=== PATIENT | male | born 1950 | race Caucasian/White ===

== ENCOUNTER 2024-04-15 18:46 | Inpatient (IN) ==
--- NOTE | 2024-04-15 18:59 | Emergency Department Note ---
Impression & Plan Cellulitis of leg, right, Atrial fibrillation with rapid ventricular response, Hypomagnesemia, Elevated troponin I level ED Provider Note NAME: OSWALDO JARAMILLO AGE: 73 SEX: M : 1950 ARRIVES VIA: Ambulance INFORMANT: Patient, EMS ED PROVIDER(S): Ulisses Arizmendi DO CHIEF COMPLAINT: Leg pain HPI: The patient is a 73-year-old male who presented to the emergency department from the intermediate for an evaluation of leg pain and swelling. The patient's been having ongoing symptoms over the course the last few days. He states it became worse today. He states he is not currently on any antibiotics. He denies having any fever. He denies having any chest pain or difficulty breathing. The patient denies having any recent trauma. They did notice that he has a lot of swelling in his right inguinal region. The patient does not have a history of DVT. The patient denies having any cough or chills. ROS: See above HPI for pertinent positives & negatives. A total of 10 systems reviewed and were otherwise negative. PAST MEDICAL HISTORY: See Below PAST SURGICAL HISTORY: See Below FAMILY HISTORY: See Below SOCIAL HISTORY: See Below HOME MEDICATIONS: See Below ALLERGIES: See Below VITALS: See Below PHYSICAL EXAMINATION: GENERAL: Patient is awake alert in no acute distress patient is resting comfortably and showing no signs of anxiety EYES: The conjunctivae are clear. The pupils are round and reactive. EARS, NOSE, MOUTH AND THROAT: The nose is without any evidence of any deformity. NECK: The neck is nontender and supple. RESPIRATORY: Normal respiratory effort is noted there is no evidence of wheezing rhonchi or rales CARDIOVASCULAR: Regular rate and rhythm noted there no murmurs rubs or gallops normal S1 normal S2. GASTROINTESTINAL: The abdomen is soft. Abdomen is nontender. MUSCULOSKELETAL/EXTREMITIES: There is no evidence of gross deformity full range of motion is noted in the hips and shoulders. SKIN: There is significant erythema and induration noted on the entire right leg. There is swelling in the right inguinal region. Pulses are symmetric in both feet and both groins. NEUROLOGIC: Patient is awake alert and oriented x3 MEDICAL DECISION MAKING: The patient is a 73-year-old male who presented to the emergency department for an evaluation of right leg redness and swelling. History and physical exam appear to be consistent with cellulitis. The patient was febrile. He was also tachycardic and hypotensive at times. He was in rapid atrial fibrillation. He was treated with IV fluids IV antibiotics and IV magnesium replacement. I discussed the patient's laboratory and radiographic studies with him. I discussed his condition with the on-call [facility]. They have agreed to evaluate the patient in the emergency department for further management and disposition. The patient was treated with sepsis bundle order set as well as IV fluids. Triage Nursing notes reviewed. Prior medical records reviewed Vital Signs: reviewed and remarkable for tachycardia and hypotension. Differential diagnosis: Cellulitis, abscess, MRSA infection, DVT, necrotizing fasciitis, dermatitis, drug eruption, allergic reaction, as well as other pathologies. ER treatment provided: See below Diagnostics interpreted by me: ECG: EKG was obtained in the emergency department. My interpretation is atrial fibrillation with runs of atrial flutter at 137 bpm. There was no PVCs noted. Nonspecific ST segment abnormalities noted. No previous tracing was available. Cardiac Monitoring: An order was placed for continuous cardiac monitoring. The monitor shows a rate of 100 bpm with atrial fibrillation. Laboratory studies: As stated above and show below. Imaging studies: See below. Radiographic imaging was reviewed by myself Consultation(s): I discussed this case with Dr. Cedeño who is on-call for the [facility] group. ED COURSE: Procedures: none Critical Care: I have personally spent greater than 55 minutes of critical care time in the direct management of this patient. This includes bedside care, interpretation of diagnostic studies, and testing, discussion with consultants, patient, and family members, and other required patient management activities. This 55 minutes is in excess of all separately billable procedures. Past Med/Surg History Problem List (Updated 04/15/24 @ 21:57 by Ulisses Arizmendi DO) Elevated troponin I level (Acute) Hypomagnesemia (Acute) Atrial fibrillation with rapid ventricular response (Acute) Cellulitis of leg, right (Acute) Encounter for pre-operative examination Bipolar disorder Hypertension Mixed hyperlipidemia Antisocial personality disorder Bronchiectasis Pulmonary fibrosis Pleural plaque Inguinal hernia Medical History HLD (hyperlipidemia) Pleural plaque Pulmonary fibrosis Bronchiectasis Unilateral inguinal hernia Constipation Surgical History H/O right inguinal hernia repair (10/05/21) Right Open Inguinal Hernia with Bassini Repair, Excision right lipoma of cord(Right) - Bob Blackman MD, FACS 10/05/2021 H/O splenectomy Social History Smoking Status: Unknown if ever smoked Visual Impairment: No Limitations Current Living Situation Comment: inmate [facility] Feels Safe at Home: Yes Allergies Allergies Allergy/AdvReac Type Severity Reaction Status Date / Time No Known Allergies Allergy Verified 04/15/24 21:18 Home Meds Home Medications Medication Instructions Recorded Confirmed albuterol sulfate 90 mcg/actuation 2 puff inhalation QID PRN 04/15/24 04/15/24 aerosol inhaler Shortness Of Breath Or Wheezing aspirin 81 mg tablet,delayed 81 mg PO DAILY 04/15/24 04/15/24 release atorvastatin 40 mg tablet 40 mg PO DAILY 04/15/24 04/15/24 lisinopril 20 1 tab PO DAILY 04/15/24 04/15/24 mg-hydrochlorothiazide 25 mg tablet Results & Data (ED) Vital Signs Vital Signs - 24 hr 04/15/24 18:50 04/15/24 18:58 04/15/24 19:07 Temperature 38.0 C H Temperature Source Oral Pulse Rate 132 H 136 H 142 H Respiratory Rate 21 20 Respiratory Effort / Characteristics Non-Labored Respiratory Depth Normal Respiratory Pattern Regular Blood Pressure 148/87 H Blood Pressure Mean 107 Pulse Oximetry 96 91 Oxygen Delivery Method Room Air Room Air Sepsis Recent Fever Within 48 Hours Yes Sepsis New/Unexplained Change in Mental Status N/A Sepsis Action Taken by Nursing Physician Notified 04/15/24 19:10 04/15/24 19:15 04/15/24 19:30 Temperature Temperature Source Pulse Rate 138 H Respiratory Rate 24 21 Respiratory Effort / Characteristics Respiratory Depth Respiratory Pattern Blood Pressure 129/98 144/83 H Blood Pressure Mean 108 103 Pulse Oximetry 91 98 Oxygen Delivery Method Room Air Room Air Sepsis Recent Fever Within 48 Hours Sepsis New/Unexplained Change in Mental Status Sepsis Action Taken by Nursing 04/15/24 20:00 04/15/24 20:47 04/15/24 21:00 Temperature 38.1 C H Temperature Source Oral Pulse Rate 126 H 128 H Respiratory Rate 19 14 Respiratory Effort / Characteristics Respiratory Depth Respiratory Pattern Blood Pressure 103/62 98/58 L Blood Pressure Mean 75 69 Pulse Oximetry 97 97 Oxygen Delivery Method Room Air Room Air Sepsis Recent Fever Within 48 Hours Sepsis New/Unexplained Change in Mental Status Sepsis Action Taken by Nursing 04/15/24 21:00 04/15/24 21:12 04/15/24 21:30 Temperature Temperature Source Pulse Rate 123 H 100 H 104 H Respiratory Rate 15 14 18 Respiratory Effort / Characteristics Respiratory Depth Respiratory Pattern Blood Pressure 99/54 L 99/77 L 110/69 Blood Pressure Mean 69 84 82 Pulse Oximetry 97 96 98 Oxygen Delivery Method Room Air Room Air Room Air Sepsis Recent Fever Within 48 Hours Sepsis New/Unexplained Change in Mental Status Sepsis Action Taken by Long-Term Medications Current Medication List: was personally reviewed by me Laboratory Data Attestation: I reviewed the patient's lab results. 04/15/24 19:00 04/15/24 19:00 Lab Results 04/15/24 04/15/24 04/15/24 Range/Units 19:00 19:33 19:55 WBC 8.31 (4.8-10.8) K/ul RBC 4.66 L (4.70-6.10) M/uL Hgb 13.9 L (14.0-18.0) g/dl Hct 41.2 L (42.0-52.0) % MCV 88.4 (80.0-100.0) fL MCH 29.8 (25.0-34.0) pg MCHC 33.7 (32.0-36.0) g/dL RDW Std Deviation 42.5 (36.4-46.3) fL RDW Coeff of Hanane 13.1 (11.5-14.5) % Plt Count 205 (130-400) K/uL MPV 9.3 L (9.4-12.4) fL Immature Gran % (Auto) 0.5 % Neut % (Auto) 86.9 % Lymph % (Auto) 6.1 % Dickson % (Auto) 6.4 % Eos % (Auto) 0.0 % Baso % (Auto) 0.1 % Neut # (Auto) 7.22 H (1.40-6.50) K/uL Lymph # (Auto) 0.51 L (1.20-3.40) K/uL Dickson # (Auto) 0.53 (0.11-0.59) K/uL Eos # (Auto) 0.00 (0.00-0.50) K/uL Baso # (Auto) 0.01 (0.00-0.20) K/uL Immature Gran # (Auto) 0.04 (0.01-0.20) K/uL PT 11.1 (9.0-12.0) Seconds INR 1.0 (0.9-1.1) APTT 23 (21-31) Seconds PTT Ratio 0.9 VBG pH 7.41 (7.36-7.41) VBG pCO2 41 (38-50) mmHg VBG pO2 20 mmHg VBG HCO3 26 mmol/L VBG O2 Saturation < 60.0 % VBG Base Excess 1.2 mEq/L Sodium 127 L (136-145) mmol/L Potassium 3.9 (3.5-5.1) mmol/L Chloride 95 L (98-107) mmol/L Carbon Dioxide 26 (21-32) mmol/L Anion Gap 6 (3-11) BUN 17 (6-23) mg/dl Creatinine 1.17 (0.6-1.4) mg/dl Est Cr Clr Drug Dosing 57.2 ml/min Est GFR ( Amer) 70.8 ml/min Est GFR (Non-Af Amer) 61.1 ml/min BUN/Creatinine Ratio 14.5 (10-20) Glucose 100 H (70-99(Fasting)) mg/dl Lactate 2.1 H* (0.4-2.0) mmol/L Calcium 9.0 (8.6-10.3) mg/dl Magnesium 1.6 L (1.7-2.4) mg/dl Total Bilirubin 0.6 (0.2-1.0) mg/dl Direct Bilirubin 0.2 (0-0.2) mg/dl AST 115 H (13-39) U/L ALT 87 H (7-52) U/L Alkaline Phosphatase 133 H (34-104) U/L Troponin I High Sens 28.2 H (0-20) pg/ml Total Protein 6.7 (6.0-8.3) gm/dl Albumin 3.6 (3.4-5.0) gm/dl Procalcitonin 5.17 H (0-0.5) ng/ml Urine Color Yellow Urine Appearance Clear (Clear) Urine pH 6.5 (4.5-7.5) Ur Specific Funk 1.015 (1.000-1.030) Urine Protein Trace H (Negative) Urine Glucose (UA) Negative (Negative) Urine Ketones Trace H (Negative) Urine Blood Negative (Negative) Urine Nitrite Negative (Negative) Urine Bilirubin Negative (Negative) Urine Urobilinogen Negative (Negative) Ur Leukocyte Esterase Negative (Negative) Urine WBC (Auto) 0-5 (0-5) /hpf Urine RBC (Auto) 3-5 H (0-2) /hpf U Hyaline Cast (Auto) 0-2 (0-2) /lpf U Epithel Cells (Auto) 0-2 (0-2) /hpf Urine Bacteria (Auto) None Seen (None Seen) 04/15/24 04/15/24 Range/Units 20:47 21:19 WBC (4.8-10.8) K/ul RBC (4.70-6.10) M/uL Hgb (14.0-18.0) g/dl Hct (42.0-52.0) % MCV (80.0-100.0) fL MCH (25.0-34.0) pg MCHC (32.0-36.0) g/dL RDW Std Deviation (36.4-46.3) fL RDW Coeff of Hanane (11.5-14.5) % Plt Count (130-400) K/uL MPV (9.4-12.4) fL Immature Gran % (Auto) % Neut % (Auto) % Lymph % (Auto) % Dickson % (Auto) % Eos % (Auto) % Baso % (Auto) % Neut # (Auto) (1.40-6.50) K/uL Lymph # (Auto) (1.20-3.40) K/uL Dickson # (Auto) (0.11-0.59) K/uL Eos # (Auto) (0.00-0.50) K/uL Baso # (Auto) (0.00-0.20) K/uL Immature Gran # (Auto) (0.01-0.20) K/uL PT (9.0-12.0) Seconds INR (0.9-1.1) APTT (21-31) Seconds PTT Ratio VBG pH (7.36-7.41) VBG pCO2 (38-50) mmHg VBG pO2 mmHg VBG HCO3 mmol/L VBG O2 Saturation % VBG Base Excess mEq/L Sodium (136-145) mmol/L Potassium (3.5-5.1) mmol/L Chloride (98-107) mmol/L Carbon Dioxide (21-32) mmol/L Anion Gap (3-11) BUN (6-23) mg/dl Creatinine (0.6-1.4) mg/dl Est Cr Clr Drug Dosing ml/min Est GFR ( Amer) ml/min Est GFR (Non-Af Amer) ml/min BUN/Creatinine Ratio (10-20) Glucose (70-99(Fasting)) mg/dl Lactate 1.6 (0.4-2.0) mmol/L Calcium (8.6-10.3) mg/dl Magnesium (1.7-2.4) mg/dl Total Bilirubin (0.2-1.0) mg/dl Direct Bilirubin (0-0.2) mg/dl AST (13-39) U/L ALT (7-52) U/L Alkaline Phosphatase (34-104) U/L Troponin I High Sens 38.5 H D (0-20) pg/ml Total Protein (6.0-8.3) gm/dl Albumin (3.4-5.0) gm/dl Procalcitonin (0-0.5) ng/ml Urine Color Urine Appearance (Clear) Urine pH (4.5-7.5) Ur Specific Funk (1.000-1.030) Urine Protein (Negative) Urine Glucose (UA) (Negative) Urine Ketones (Negative) Urine Blood (Negative) Urine Nitrite (Negative) Urine Bilirubin (Negative) Urine Urobilinogen (Negative) Ur Leukocyte Esterase (Negative) Urine WBC (Auto) (0-5) /hpf Urine RBC (Auto) (0-2) /hpf U Hyaline Cast (Auto) (0-2) /lpf U Epithel Cells (Auto) (0-2) /hpf Urine Bacteria (Auto) (None Seen) Administered Medications Vancomycin HCl 1,750 mg/ (Sodium Chloride) 535 mls @ 200 mls/hr IV NOW ONE Stop: 04/15/24 23:27 Last Admin: 04/15/24 21:52 Dose: 200 mls/hr Documented By: TRISTIAN Discontinued Medications Acetaminophen (Acetaminophen 500 Mg Tab) 1,000 mg PO NOW STA Stop: 04/15/24 19:14 Last Admin: 04/15/24 19:31 Dose: 1,000 mg Documented By: TRISTIAN Calcium Carbonate (Calcium Carbonate 500 Mg Chewable Tab) 500 mg PO NOW STA Stop: 04/15/24 21:41 Last Admin: 04/15/24 21:52 Dose: 500 mg Documented By: TRISTIAN Sodium Chloride (Nss) 1,000 mls @ 999 mls/hr IV .Q1H1M ONE Stop: 04/15/24 19:55 Last Infusion: 04/15/24 20:26 Dose: Infused Documented By: Admin: 04/15/24 19:32 Dose: 999 mls/hr Documented By: TRISTIAN Ceftriaxone Sodium (Rocephin) 2,000 mg in 50 mls @ 100 mls/hr IV NOW STA Stop: 04/15/24 19:24 Last Infusion: 04/15/24 20:32 Dose: Infused Documented By: Admin: 04/15/24 20:04 Dose: 100 mls/hr Documented By: TRISTIAN Magnesium Sulfate/Dextrose (Magnesium Sulfate / D5w) 1 gm in 100 mls @ 100 mls/hr IV Q1H OTILIA Stop: 04/15/24 21:31 Last Admin: 04/15/24 21:26 Dose: 100 mls/hr Documented By: Infusion: 04/15/24 21:26 Dose: Infused Documented By: Infusion: 04/15/24 20:57 Dose: 100 mls/hr Documented By: Infusion: 04/15/24 20:03 Dose: 0 mls/hr Documented By: Admin: 04/15/24 19:41 Dose: 100 mls/hr Documented By: TRISTIAN Sodium Chloride (Nss) 1,000 mls @ 999 mls/hr IV .Q1H1M ONE Stop: 04/15/24 21:47 Last Admin: 04/15/24 21:26 Dose: 999 mls/hr Documented By: TRISTIAN Sodium Chloride (Nss) 500 mls @ 999 mls/hr IV .Q31M ONE Stop: 04/15/24 21:39 Last Admin: 07/22/24 21:27 Dose: 999 mls/hr Documented By: TRISTIAN Imaging Data Attestation: I personally reviewed and interpreted this imaging study as follows: My Impression: 1 view chest x-ray was obtained in the emergency department my interpretation is small left pleural effusion, peripheral infiltrate noted, no previous chest x- ray available, final report pending. Discharge Plan Visit Data Chief Complaint: Weakness Stated Complaint: WEAKNESS ED Provider: Ulisses Arizmendi Discharge Problem: Cellulitis of leg, right, Atrial fibrillation with rapid ventricular response, Hypomagnesemia, Elevated troponin I level Patient Disposition: Being Evaluated by Hospitalist Forms Stand Alone Forms: My [facility] Prescriptions Prescriptions: No Action atorvastatin 40 mg Tablet 40 mg PO DAILY aspirin [Aspir-Low] 81 mg Tablet,Delayed Release (Dr/Ec) 81 mg PO DAILY lisinopril-hydrochlorothiazide 20-25 mg Tablet 1 tab PO DAILY albuterol sulfate 90 mcg/actuation Hfa Aerosol Inhaler 2 puff INHALATION QID PRN (Reason: Shortness Of Breath Or Wheezing) Referrals Referrals: Idalmis OSEGUERA [Primary Care Provider] -
[2024-04-15 19:09] LABS: Basophils # (auto) 0.01 K/uL (0.00-0.20); Basophils % (auto) 0.1 %; Hematocrit (blood only) 41.2 % (42.0-52.0); Hemoglobin 13.9 g/dl (14.0-18.0); Immature Granulocytes # (auto) 0.04 K/uL (0.01-0.20); Immature Granulocytes % (auto) 0.5 %; Lymphocytes # (auto) 0.51 K/uL (1.20-3.40); Lymphocytes % (auto) 6.1 %; Mean Corpuscular Hemoglobin 29.8 pg (25.0-34.0); Mean Corpuscular Hgb Conc 33.7 g/dL (32.0-36.0); Mean Corpuscular Volume 88.4 fL (80.0-100.0); Mean Platelet Volume 9.3 fL (9.4-12.4); Monocytes # (auto) 0.53 K/uL (0.11-0.59); Monocytes % (auto) 6.4 %; Neutrophils # (auto) 7.22 K/uL (1.40-6.50); Neutrophils % (auto) 86.9 %; Platelet Count 205 K/uL (130-400); RDW Coefficient of Variation 13.1 % (11.5-14.5); RDW Standard Deviation 42.5 fL (36.4-46.3); Red Blood Count 4.66 M/uL (4.70-6.10); White Blood Count 8.31 K/ul (4.8-10.8)
[2024-04-15 19:29] LABS: Albumin Level 3.6 gm/dl (3.4-5.0); BUN Creatinine Ratio 14.5 (10-20); Bilirubin Direct 0.2 mg/dl (0-0.2); Bilirubin,Total 0.6 mg/dl (0.2-1.0); Creatinine Clr Calc Pharmacy 57.2 ml/min; Est GFR (African American) 70.8 ml/min; Est GFR (Non-African American) 61.1 ml/min; Magnesium 1.6 mg/dl (1.7-2.4); Potassium 3.9 mmol/L (3.5-5.1); Total Protein 6.7 gm/dl (6.0-8.3)
[2024-04-15 19:30] LABS: Partial Thromboplastin Ratio 0.9; Partial Thromboplastin Time 23 Seconds (21-31); Prothrombin Time 11.1 Seconds (9.0-12.0)
[2024-04-15] MEDS: ACETAMINOPHEN 500 MG TAB PO STA (19:31)
[2024-04-15] MEDS: SODIUM CHLORIDE 0.9% 1,000 ML IV ONE ×2 (19:32→21:26)
[2024-04-15 19:35] LABS: Troponin I High Sensitivity 28.2 pg/ml (0-20)
[2024-04-15] MEDS: MAGNESIUM SULFATE / D5W 1 GM/100 ML BAG IV SCH (19:41)
[2024-04-15 19:58] LABS: Appearance Urine Clear (Clear); Bacteria Urine Automated None Seen (None Seen); Bilirubin Urine Negative (Negative); Blood Urine Negative (Negative); Cast Urine Automated 0-2 /lpf (0-2); Color Urine Yellow; Epithelial Cell Urine Auto 0-2 /hpf (0-2); Glucose Urine UA Negative (Negative); Ketones Urine Trace (Negative); Leukocyte Esterase Urine Negative (Negative); Nitrite Urine Negative (Negative); Protein Urine Trace (Negative); Specific Gravity Urine 1.015 (1.000-1.030); Urobilinogen Urine Negative (Negative); WBC Urine Automated 0-5 /hpf (0-5); pH Urine 6.5 (4.5-7.5)
[2024-04-15 20:03] LABS: Base Excess VBG 1.2 mEq/L; HCO3 VBG 26 mmol/L; Oxygen Saturation VBG < 60.0 %; PCO2 VBG 41 mmHg (38-50); PO2 VBG 20 mmHg; pH VBG 7.41 (7.36-7.41)
[2024-04-15] MEDS: cefTRIAXone SODIUM 2,000 MG/50 ML BAG IV STA (20:04)
[2024-04-15] MEDS ORDERED: VANCOMYCIN CONSULT ACTIVE PRN (20:47)
[2024-04-15] MEDS: SODIUM CHLORIDE 0.9% 500 ML IV ONE (21:27)
[2024-04-15] MEDS: VANCOMYCIN HCL 1,750 MG in SODIUM CHLORIDE 0.9% 500 ML IV ONE (21:52)
[2024-04-15] MEDS: CALCIUM CARBONATE 500 MG CHEWABLE TAB PO STA (21:52)
--- NOTE | 2024-04-15 22:15 | History & Physical Report ---
Date of Service April 15, 2024 Assessment & Plan (1) Cellulitis of leg, right: Plan: 73-year-old male coming from assisted with past medical history significant for hypertension, hyperlipidemia, history of bipolar disorder, pulmonary fibrosis, pleural plaque comes with erythema in the right lower extremity extending streak-like into his groin and very tender in groin region and patient states it started about 2 to 3 days ago. Denies any fevers. Ambulates with cane. Denies headache. Denies neck pain. Says he has some back pain. Denies any chest pain. Denies abdominal pain. Denies shortness of breath. Has some dry cough. No runny nose. Says food was not good and he had episode of vomiting. Normal bowel movements. States he is micturating in small amounts. Requesting for acid reflux medication and states he takes it regularly. Right leg cellulitis Extending into the right groin Tenderness in the right groin History of right inguinal hernia repair Will follow Dopplers and CT abdomen pelvis Empiric Zosyn and Vanco Monitor response Possible sepsis Tachycardia and lactic acid initially was 2.1 and repeat is 1.6 Temp spike Elevated procalcitonin Got fluids in the ER Will continue IV fluids normal saline 125 mill per hour Antibiotics as above Closely monitor hemodynamics Rapid a flutter New onset Getting fluids Seems improving Started on IV heparin Will follow serial cardiac enzymes and echo Close monitoring telemetry Cardiology consult in a.m. for further recommendations Elevated LFTs Total bilirubin 0.6 AST 115 ALT 87 Alkaline phosphatase [address] abdomen pelvis Follow repeat labs Hypomagnesia Will replace Hyponatremia Sodium 127 Will follow serum osmole's and urine osmolality and urine sodium levels Follow repeat labs Nephrology consult in a.m. for further recommendations Possible BPH monitor for urinary retention. Hyperlipidemia On statin Will hold for elevated LFTs for now Hypertension Will hold lisinopril/hydrochlorothiazide as patient's seems to be in sepsis Closely monitor DVT prophylaxis IV heparin Disposition Telemetry Full code. History of Present Illness Chief Complaint: Right leg cellulitis, rapid A-fib, Primary Care Provider: ANA ROSA Raygoza 73-year-old male coming from assisted with past medical history significant for hypertension, hyperlipidemia, history of bipolar disorder, pulmonary fibrosis, pleural plaque comes with erythema in the right lower extremity extending streak-like into his groin and very tender in groin region and patient states it started about 2 to 3 days ago. Denies any fevers. Ambulates with cane. Denies headache. Denies neck pain. Says he has some back pain. Denies any chest pain. Denies abdominal pain. Denies shortness of breath. Has some dry cough. No runny nose. Says food was not good and he had episode of vomiting. Normal bowel movements. States he is micturating in small amounts. Requesting for acid reflux medication and states he takes it regularly. Past medical history. As mentioned above Past surgical history. History of splenectomy. Right inguinal hernia repair. Social history. Denies smoking. Currently living at present Family history. Patient seems not remembering his family history Allergies Allergy/AdvReac Type Severity Reaction Status Date / Time No Known Allergies Allergy Verified 04/15/24 21:18 Home Medications Medication Instructions Recorded Confirmed Type albuterol sulfate 90 mcg/actuation 2 puff inhalation QID PRN 04/15/24 04/15/24 History aerosol inhaler Shortness Of Breath Or Wheezing aspirin 81 mg tablet,delayed 81 mg PO DAILY 04/15/24 04/15/24 History release atorvastatin 40 mg tablet 40 mg PO DAILY 04/15/24 04/15/24 History lisinopril 20 1 tab PO DAILY 04/15/24 04/15/24 History mg-hydrochlorothiazide 25 mg tablet Past Med/Surg History Problem List (Updated 04/15/24 @ 21:57 by Ulisses Arizmendi DO) Elevated troponin I level (Acute) Hypomagnesemia (Acute) Atrial fibrillation with rapid ventricular response (Acute) Cellulitis of leg, right (Acute) Encounter for pre-operative examination Bipolar disorder Hypertension Mixed hyperlipidemia Antisocial personality disorder Bronchiectasis Pulmonary fibrosis Pleural plaque Inguinal hernia Medical History HLD (hyperlipidemia) Pleural plaque Pulmonary fibrosis Bronchiectasis Unilateral inguinal hernia Constipation Surgical History H/O right inguinal hernia repair (10/05/21) Right Open Inguinal Hernia with Bassini Repair, Excision right lipoma of cord(Right) - Bob Blackamn MD, FACS 10/05/2021 H/O splenectomy Social History Smoking Status: Never smoker Hx Alcohol Use: No Hx Substance Use: No Preferred Language: [place] Communication Ability: Effective Visual Impairment: No Limitations Jewelry Sales Required: No Beliefs That Will Affect Care: None Current Living Situation: Other Current Living Situation Comment: Inmate Feels Safe at Home: Declines to Answer Review of Systems Review of Systems: All systems reviewed & are unremarkable except as noted in HPI & below Physical Exam Physical Exam: General- Not in distress. Head- atraumatic Eyes- PERRL. ENT- oropharynx clear Neck- supple, no JVD. Lungs- clear to auscultation no wheezing or crackles Heart- regular rhythm; no murmur, no gallop. Abdomen- normal bowel sounds, soft, swelling, erythema and tenderness in right groin region. Extremities- Right lower extremity erythematous streak like extending from groin to ankle region mostly medial aspect Neuro- alert, oriented ; PERRL no facial palsy; no dysarthria; moves extremities Results & Data Results & Data Vital Signs (Past 12 Hours) Vital Signs Temp Pulse Resp BP Pulse Ox O2 Del Method 04/15/24 21:30 104 H 18 110/69 98 Room Air 04/15/24 21:12 100 H 14 99/77 L 96 Room Air 04/15/24 21:00 123 H 15 99/54 L 97 Room Air 04/15/24 21:00 38.1 C H 04/15/24 20:47 128 H 14 98/58 L 97 Room Air 04/15/24 20:00 126 H 19 103/62 97 Room Air 04/15/24 19:30 138 H 21 144/83 H 98 Room Air 04/15/24 19:15 24 129/98 04/15/24 19:10 91 Room Air 04/15/24 19:07 142 H 20 91 Room Air 04/15/24 18:58 136 H 04/15/24 18:50 38.0 C H 132 H 21 148/87 H 96 Room Air Diagnostic Findings Laboratory Results WBC 8.31 K/ul (4.8-10.8) 04/15/24 19:00 RBC 4.66 M/uL (4.70-6.10) L 04/15/24 19:00 Hgb 13.9 g/dl (14.0-18.0) L 04/15/24 19:00 Hct 41.2 % (42.0-52.0) L 04/15/24 19:00 MCV 88.4 fL (80.0-100.0) 04/15/24 19:00 MCH 29.8 pg (25.0-34.0) 04/15/24 19:00 MCHC 33.7 g/dL (32.0-36.0) 04/15/24 19:00 RDW Std Deviation 42.5 fL (36.4-46.3) 04/15/24 19:00 RDW Coeff of Hanane 13.1 % (11.5-14.5) 04/15/24 19:00 Plt Count 205 K/uL (130-400) 04/15/24 19:00 MPV 9.3 fL (9.4-12.4) L 04/15/24 19:00 Immature Gran % (Auto) 0.5 % 04/15/24 19:00 Neut % (Auto) 86.9 % 04/15/24 19:00 Lymph % (Auto) 6.1 % 04/15/24 19:00 Lea % (Auto) 6.4 % 04/15/24 19:00 Eos % (Auto) 0.0 % 04/15/24 19:00 Baso % (Auto) 0.1 % 04/15/24 19:00 Neut # (Auto) 7.22 K/uL (1.40-6.50) H 04/15/24 19:00 Lymph # (Auto) 0.51 K/uL (1.20-3.40) L 04/15/24 19:00 Lea # (Auto) 0.53 K/uL (0.11-0.59) 04/15/24 19:00 Eos # (Auto) 0.00 K/uL (0.00-0.50) 04/15/24 19:00 Baso # (Auto) 0.01 K/uL (0.00-0.20) 04/15/24 19:00 Immature Gran # (Auto) 0.04 K/uL (0.01-0.20) 04/15/24 19:00 PT 11.1 Seconds (9.0-12.0) 04/15/24 19:00 INR 1.0 (0.9-1.1) 04/15/24 19:00 APTT 23 Seconds (21-31) 04/15/24 19:00 PTT Ratio 0.9 04/15/24 19:00 VBG pH 7.41 (7.36-7.41) 04/15/24 19:55 VBG pCO2 41 mmHg (38-50) 04/15/24 19:55 VBG pO2 20 mmHg 04/15/24 19:55 VBG HCO3 26 mmol/L 04/15/24 19:55 VBG O2 Saturation < 60.0 % 04/15/24 19:55 VBG Base Excess 1.2 mEq/L 04/15/24 19:55 Sodium 127 mmol/L (136-145) L 04/15/24 19:00 Potassium 3.9 mmol/L (3.5-5.1) 04/15/24 19:00 Chloride 95 mmol/L (98-107) L 04/15/24 19:00 Carbon Dioxide 26 mmol/L (21-32) 04/15/24 19:00 Anion Gap 6 (3-11) 04/15/24 19:00 BUN 17 mg/dl (6-23) 04/15/24 19:00 Creatinine 1.17 mg/dl (0.6-1.4) 04/15/24 19:00 Est Cr Clr Drug Dosing 57.2 ml/min 04/15/24 19:00 Est GFR ( Amer) 70.8 ml/min 04/15/24 19:00 Est GFR (Non-Af Amer) 61.1 ml/min 04/15/24 19:00 BUN/Creatinine Ratio 14.5 (10-20) 04/15/24 19:00 Glucose 100 mg/dl (70-99(Fasting)) H 04/15/24 19:00 Lactate 1.6 mmol/L (0.4-2.0) 04/15/24 21:19 Calcium 9.0 mg/dl (8.6-10.3) 04/15/24 19:00 Magnesium 1.6 mg/dl (1.7-2.4) L 04/15/24 19:00 Total Bilirubin 0.6 mg/dl (0.2-1.0) 04/15/24 19:00 Direct Bilirubin 0.2 mg/dl (0-0.2) 04/15/24 19:00 AST 115 U/L (13-39) H 04/15/24 19:00 ALT 87 U/L (7-52) H 04/15/24 19:00 Alkaline Phosphatase 133 U/L (34-104) H 04/15/24 19:00 Troponin I High Sens 38.5 pg/ml (0-20) H D 04/15/24 20:47 Total Protein 6.7 gm/dl (6.0-8.3) 04/15/24 19:00 Albumin 3.6 gm/dl (3.4-5.0) 04/15/24 19:00 Procalcitonin 5.17 ng/ml (0-0.5) H 04/15/24 19:00 Urine Color Yellow 04/15/24 19:33 Urine Appearance Clear (Clear) 04/15/24 19:33 Urine pH 6.5 (4.5-7.5) 04/15/24 19:33 Ur Specific [place] 1.015 (1.000-1.030) 04/15/24 19:33 Urine Protein Trace (Negative) H 04/15/24 19:33 Urine Glucose (UA) Negative (Negative) 04/15/24 19:33 Urine Ketones Trace (Negative) H 04/15/24 19:33 Urine Blood Negative (Negative) 04/15/24 19:33 Urine Nitrite Negative (Negative) 04/15/24 19:33 Urine Bilirubin Negative (Negative) 04/15/24 19:33 Urine Urobilinogen Negative (Negative) 04/15/24 19:33 Ur Leukocyte Esterase Negative (Negative) 04/15/24 19:33 Urine WBC (Auto) 0-5 /hpf (0-5) 04/15/24 19:33 Urine RBC (Auto) 3-5 /hpf (0-2) H 04/15/24 19:33 U Hyaline Cast (Auto) 0-2 /lpf (0-2) 04/15/24 19:33 U Epithel Cells (Auto) 0-2 /hpf (0-2) 04/15/24 19:33 Urine Bacteria (Auto) None Seen (None Seen) 04/15/24 19:33 ECG Additional Comments: A flutter with variable AV block at a rate of 137. No acute decisions seen. Code Status & VTE Plan VTE Prophylaxis Plan VTE Prophylaxis will be ordered: Yes
[2024-04-15] MEDS: OPTIRAY 320 100ml IV ONE (23:22)
[2024-04-15] MEDS ORDERED: ALBUTEROL HFA 8 GM INHALER INH PRN (23:44)
[2024-04-15] MEDS ORDERED: POLYETHYLENE (MIRALAX) 17 GM PACK PO PRN (23:44)
[2024-04-15] MEDS ORDERED: CALCIUM CARBONATE 500 MG CHEWABLE TAB PO PRN (23:44)
[2024-04-15] MEDS ORDERED: NITROGLYCERIN SL 0.4 MG/TAB TAB SL PRN (23:44)
[2024-04-15] MEDS ORDERED: Heparin IV Adult Wt-Based Standard *NO* INITIAL Bolus Protocol IV STA (23:44)
[2024-04-16] MEDS: SODIUM CHLORIDE 0.9% 1,000 ML IV SCH (00:20)
[2024-04-16] MEDS: PIPERACILLIN/TAZOBACTAM 4.5 GM in DEXTROSE 5% MINI-B 100 ML IV ONE (00:20)
--- NOTE | 2024-04-16 00:54 | Ultrasound Report ---
Exam(s): US VENOUS RIGHT LOWER EXTREMITY EXAM: US Duplex Right Lower Extremity Veins CLINICAL HISTORY: Reason for exam: swelling. TECHNIQUE: Real-time duplex ultrasound scan of the right lower extremity veins integrating B-mode two-dimensional vascular structure, Doppler spectral analysis, color flow Doppler imaging and compression. COMPARISON: No relevant prior studies available. FINDINGS: Deep veins: Unremarkable. No DVT of the RIGHT lower extremity. Superficial veins: Unremarkable. No thrombus in the visualized great saphenous vein. Soft tissues: No acute findings. No popliteal cyst. Lymph nodes: RIGHT inguinal lymph nodes measure up to 4.6 x 1.8 cm. Correlate for infection. IMPRESSION: 1. No DVT of the RIGHT lower extremity. 2. RIGHT inguinal lymph nodes measure up to 4.6 x 1.8 cm. Correlate for infection. Electronically signed by: Donald Ashley MD 04/16/24 00:53 AM
[2024-04-16] MEDS: HEPARIN SODIUM/DEXTROSE 25,000 UNITS/500 ML BAG IV SCH (00:58)
--- NOTE | 2024-04-16 01:19 | CT Scan Report ---
Exam(s): CT ABDOMEN + PELVIS With Contrast IV Amt: 93 ML OPTIRAY 320 EXAM: CT Abdomen and Pelvis With Intravenous Contrast CLINICAL HISTORY: Reason for exam: hx of hernia repair. erythmatous changes in groin.. TECHNIQUE: Axial computed tomography images of the abdomen and pelvis with intravenous contrast. CTDI is 25.93 mGy and DLP is 1304.47 mGy-cm. Automated exposure control was utilized for the study. A dose lowering technique was utilized adhering to the principles of ALARA. CONTRAST: Patient received 93 ML OPTIRAY 320 of IV contrast COMPARISON: No relevant prior studies available. FINDINGS: Lung bases: Unremarkable. No mass. No consolidation. ABDOMEN: Liver: Unremarkable. No mass. Gallbladder and bile ducts: Unremarkable. No calcified stones. No ductal dilation. Pancreas: Unremarkable. No mass. No ductal dilation. Spleen: Unremarkable. No splenomegaly. Adrenals: Unremarkable. No mass. Kidneys and ureters: Unremarkable. No solid mass. No hydronephrosis. Stomach and bowel: Diverticulosis, without acute diverticulitis. No small bowel obstruction. No free intraperitoneal air. PELVIS: Appendix: No findings to suggest acute appendicitis. Bladder: Unremarkable. No mass. Reproductive: Unremarkable as visualized. ABDOMEN and PELVIS: Intraperitoneal space: Unremarkable. No free air. No significant fluid collection. Bones/joints: Degenerative changes of the spine. No acute fracture. No dislocation. Soft tissues: See below. Vasculature: Atherosclerotic changes of the aorta. No abdominal aortic aneurysm. Lymph nodes: Multiple enlarged RIGHT inguinal lymph nodes with surrounding edema. Correlate for RIGHT lower extremity infection or cellulitis of the RIGHT inguinal region. IMPRESSION: 1. Multiple enlarged RIGHT inguinal lymph nodes with surrounding edema. Correlate for RIGHT lower extremity infection or cellulitis of the RIGHT inguinal region. 2. Diverticulosis, without acute diverticulitis. No small bowel obstruction. No free intraperitoneal air. Electronically signed by: Donald Ashley MD 04/16/24 01:18 AM
[2024-04-16] MEDS: ACETAMINOPHEN 325 MG TAB PO PRN (06:01)
[2024-04-16] MEDS: VANCOMYCIN HCL 1,500 MG in SODIUM CHLORIDE 0.9% 500 ML IV SCH (06:02)
[2024-04-16] MEDS: PIPERACILLIN/TAZOBACTAM 4.5 GM in DEXTROSE 5% MINI-B 100 ML IV SCH (06:02)
--- NOTE | 2024-04-16 07:13 | XRay Report ---
XR chest 1V portable HISTORY: Sepsis COMPARISON: None. FINDINGS: There is a 2.4 cm pleural-based nodule within the periphery the left lower lung zone. Other [place], lungs are clear. The heart is borderline enlarged. There are calcifications within the aortic k nob. No pleural effusions. No pneumothorax. IMPRESSION: 1. No acute process within the chest. 2. A 2.4 cm pleural-based nodule within the left lower lung zone. Follow-up nonemergent chest CT chirag mmended for further evaluation. This report was called/faxed to the emergency department following di ctation. ACT 112: Positive. There are findings on this exam that require communication between the performing entity and the patient following Patient Test Result Information Act ([place] Act 112) guidelines. Electronically signed by: Alton Rico M.D. 04/16/2024 7:12 AM
[2024-04-16 08:13] LABS: BUN Creatinine Ratio 13.9 (10-20); Calcium 7.9 mg/dl (8.6-10.3); Creatinine Clr Calc Pharmacy 66.3 ml/min; Est GFR (African American) 84.5 ml/min; Est GFR (Non-African American) 72.9 ml/min; Potassium 3.7 mmol/L (3.5-5.1)
[2024-04-16 08:15] LABS: Creatinine Clr Calc Pharmacy 66.9 ml/min; Est GFR (African American) 85.6 ml/min; Est GFR (Non-African American) 73.8 ml/min
[2024-04-16 08:17] LABS: ANTI-Xa, UFH(UnfractionatedHep 0.39 IU/ml (0.3-0.7)
[2024-04-16 08:21] LABS: Troponin I High Sensitivity 30.4 pg/ml (0-20)
[2024-04-16] MEDS: ASPIRIN 81 MG ECTAB PO SCH (09:50)
[2024-04-16 10:35] LABS: A calco-baum cmplx NotReported Not Detected (NotDetected); Bact fragilis Not Reported Not Detected (NotDetected); Blood Culture Id Panel See PCR Comment (NotDetected); C auris Not Reported Not Detected (NotDetected); Calbicans Not Reported Not Detected (NotDetected); Candida glabrata Not Reported Not Detected (NotDetected); Candida krusei Not Reported Not Detected (NotDetected); Cneoformans/gatti Not Reported Not Detected (NotDetected); Cparapsilosis Not Reported Not Detected (NotDetected); E cloacae compx Not Reported Not Detected (NotDetected); Efaecalis Not Reported Not Detected (NotDetected); Efaecium Not Reported Not Detected (NotDetected); Enterobacterales Not Reported Not Detected (NotDetected); Escherichia coli Not Reported Not Detected (NotDetected); H influenzae Not Reported Not Detected (NotDetected); K aerogenes Not Reported Not Detected (NotDetected); Koxytoca Not Reported Not Detected (NotDetected); Kpneumoniae grp Not Reported Not Detected (NotDetected); Lmonocyt Not Reported Not Detected (NotDetected); N meningitidis Not Reported Not Detected (NotDetected); P aeruginosa Not Reported Not Detected (NotDetected); Proteus spp Not Reported Not Detected (NotDetected); Salmonella spp Not Reported Not Detected (NotDetected); Staph lugdunensis Not Reported Not Detected (NotDetected); Staph spp. Not Reported Not Detected (NotDetected); Staphaureus Not Reported Not Detected (NotDetected); Staphepi Not Reported Not Detected (NotDetected); Stenmaltophilia Not Reported Not Detected (NotDetected); Strep agal(GrpB) Not Reported Not Detected (NotDetected); Strep pneum Not Reported Not Detected (NotDetected); Strep pyog (GrpA) Not Reported Not Detected (NotDetected); Strep spp Not Reported DETECTED (NotDetected)
[2024-04-16 11:35] LABS: Streptococcus spp DETECTED (NotDetected)
--- NOTE | 2024-04-16 11:35 | Electrocardiogram Report ---
Test Reason : Blood Pressure : / mmHG Vent. Rate : 093 BPM Atrial Rate : 344 BPM P-R Int : 000 ms QRS Dur : 080 ms QT Int : 360 ms P-R-T Axes : 245 -02 019 degrees QTc Int : 447 ms Atrial flutter with variable A-V block Abnormal ECG When compared with ECG of 15-APR-2024 19:11, HR has decreased by 44 bpm Confirmed by Pipe Corcoran ([id number]) on 04/16/2024 11:34:58 AM Referred By: [facility] Confirmed By:Pipe Corcoran
--- NOTE | 2024-04-16 11:43 | Electrocardiogram Report ---
Test Reason : Blood Pressure : / mmHG Vent. Rate : 137 BPM Atrial Rate : 352 BPM P-R Int : 000 ms QRS Dur : 074 ms QT Int : 282 ms P-R-T Axes : 000 -12 017 degrees QTc Int : 425 ms Atrial flutter with variable A-V block Abnormal ECG No previous ECGs available Confirmed by Pipe Corcoran ([id number]) on 04/16/2024 11:43:31 AM Referred By: [facility] Confirmed By:Pipe Corcoran
--- NOTE | 2024-04-16 12:06 | Cardiology Consultation ---
Date of Consultation April 16, 2024 Assessment & Plan (1) Atrial flutter: (2) Elevated troponin I level: (3) Cellulitis of leg, right: (4) Bacteremia due to Gram-positive bacteria: Plan 73-year-old male presents with right lower extremity cellulitis and sepsis. Incidentally noted atrial flutter with rapid ventricular response on presentation. Heart rate improved currently with medical therapies and IV hydration. Recommend rate control strategy with addition of low-dose metoprolol 12.5 mg twice daily. Continue IV anticoagulation with heparin. Transition to Eliquis prior to discharge. Consider elective external direct-current cardioversion after 4 weeks of adequa te anticoagulation. Continue telemetry monitoring during hospitalization. Repeat ECG in AM. Minimally elevated high-sensitivity troponin secondary to demand ischemia in the setting of rapid atrial flutter and sepsis. Management of bacteremia/sepsis/cellulitis as per internal medicine. History of Present Illness Reason for Consultation: New atrial flutter Requesting Physician: Dr. Cedeño Attending Physician: Maribell Manrique MD History of Present Illness 73-year-old incarcerated male presents to the emergency department due to right lower extremity erythema and edema. Diagnosed with cellulitis. ECG on admission demonstrating atrial flutter with rapid ventricular response. IV heparin initiated. No known history of atrial fibrillation or flutter. Patient not treated with AV isaac blocking agents prior to admission. Denies palpitations, lightheadedness, dizziness, syncope, or near syncope. No chest discomfort or unusual shortness of breath. Denies orthopnea or PND. Right lower extremity erythema, edema first noticed on 04/14/2024. Allergies Allergy/AdvReac Type Severity Reaction Status Date / Time No Known Allergies Allergy Verified 04/15/24 21:18 Home Medications Medication Instructions Recorded Confirmed Type albuterol sulfate 90 mcg/actuation 2 puff inhalation QID PRN 04/15/24 04/15/24 History aerosol inhaler Shortness Of Breath Or Wheezing aspirin 81 mg tablet,delayed 81 mg PO DAILY 04/15/24 04/15/24 History release atorvastatin 40 mg tablet 40 mg PO DAILY 04/15/24 04/15/24 History lisinopril 20 1 tab PO DAILY 04/15/24 04/15/24 History mg-hydrochlorothiazide 25 mg tablet Patient History Medical History HLD (hyperlipidemia) Pleural plaque Pulmonary fibrosis Bronchiectasis Unilateral inguinal hernia Constipation Surgical History H/O right inguinal hernia repair (10/05/21) Right Open Inguinal Hernia with Bassini Repair, Excision right lipoma of cord(Right) - Bob Blackman MD, FACS 10/05/2021 H/O splenectomy Social History Smoking Status: Never smoker Hx Alcohol Use: No Hx Substance Use: No Preferred Language: [place] Communication Ability: Effective Visual Impairment: No Limitations Hardness Tester Required: No Beliefs That Will Affect Care: None Current Living Situation: Other Current Living Situation Comment: Inmate Feels Safe at Home: Declines to Answer Assistive Devices: Cane Review of Systems Review of Systems: All systems reviewed & are unremarkable except as noted in Subjective Physical Exam Constitutional: well nourished; no acute distress Respiratory: normal respiratory effort; no respiratory distress, no labored breathing and no retractions Cardiovascular: Rate/Rhythm: + irregularly irregular Heart Sounds: normal S1 and normal S2; no murmur Vessels: no JVD and no carotid bruit Extremities: + edema (2+ RLE edema. + Erythema) Gastrointestinal (Abdomen): Inspection/Auscultation: normal bowel sounds; abdomen not distended Percussion/Palpation: abdomen soft; abdomen nontender, no guarding and abdomen not rigid Neurologic: CN's II-XI intact bilaterally and moves all extremities; no focal motor deficits Results & Data Vital Signs (Past 12 Hours) Vital Signs Temp Pulse Pulse Resp BP Pulse Ox O2 Del Method 04/16/24 10:47 36.8 C 88 18 113/74 97 Room Air 04/16/24 07:07 37.6 C H 83 18 106/62 94 Room Air 04/16/24 05:25 37.7 C H 90 18 129/69 98 Room Air 04/16/24 00:18 127 H Laboratory Results Cardiac Enzymes 04/15/24 04/15/24 04/16/24 Range/Units 19:00 20:47 07:09 AST 115 H (13-39) U/L Troponin I High Sens 28.2 H 38.5 H D 30.4 H (0-20) pg/ml 04/16/24 Range/Units 10:30 AST (13-39) U/L Troponin I High Sens 25.1 H (0-20) pg/ml Coagulation 04/15/24 Range/Units 19:00 PT 11.1 (9.0-12.0) Seconds APTT 23 (21-31) Seconds CBC 04/15/24 Range/Units 19:00 WBC 8.31 (4.8-10.8) K/ul RBC 4.66 L (4.70-6.10) M/uL Hgb 13.9 L (14.0-18.0) g/dl Hct 41.2 L (42.0-52.0) % Plt Count 205 (130-400) K/uL Neut # (Auto) 7.22 H (1.40-6.50) K/uL Lymph # (Auto) 0.51 L (1.20-3.40) K/uL [place] # (Auto) 0.53 (0.11-0.59) K/uL Eos # (Auto) 0.00 (0.00-0.50) K/uL Baso # (Auto) 0.01 (0.00-0.20) K/uL Comprehensive Metabolic Panel 04/15/24 04/16/24 04/16/24 Range/Units 19:00 07:09 07:09 Sodium 127 L 130 L (136-145) mmol/L Potassium 3.9 3.7 (3.5-5.1) mmol/L Chloride 95 L 100 (98-107) mmol/L Carbon Dioxide 26 23 (21-32) mmol/L BUN 17 14 (6-23) mg/dl Creatinine 1.17 1.00 1.01 (0.6-1.4) mg/dl Glucose 100 H 112 H (70-99(Fasting)) mg/dl Calcium 9.0 7.9 L (8.6-10.3) mg/dl Direct Bilirubin 0.2 (0-0.2) mg/dl AST 115 H (13-39) U/L ALT 87 H (7-52) U/L Alkaline Phosphatase 133 H (34-104) U/L Total Protein 6.7 (6.0-8.3) gm/dl Albumin 3.6 (3.4-5.0) gm/dl Intake and Output 04/15/24 04/16/24 04/16/24 22:59 06:59 14:59 Intake Total 3035.000 / 3670.000 635 / 3670.000 1805.933 / 1805.933 Output Total 940 / 940 Balance 3035.000 / 2730.000 -305 / 2730.000 1805.933 / 1805.933 Intake: IV 3035.000 / 3670.000 635 / 3670.000 1805.933 / 1805.933 Heparin Sodium/Dextrose 25,000 175.933 / 175.933 units In 500 ml @ 1,400 UNITS/ HR 28 mls/hr IV .[id number] [facility] Rx #:[id number] Magnesium Sulfate / D5w 1 gm In 185.000 / 185.000 100 ml @ 100 mls/hr IV Q1H [facility] Rx#:[id number] Piperacillin/Tazobactam 4.5 gm 100 / 100 100 / 100 In Dextrose 5% Mini-B 100 ml @ 25 mls/hr IV Q8H [facility] Rx#: [id number] Sodium Chloride 0.9% 1,000 ml @ 2000 / 2000 1000 / 1000 125 mls/hr IV .Q8H [facility] Rx#: [id number] Sodium Chloride 0.9% 500 ml @ 500 / 500 999 mls/hr IV .Q31M [facility] Rx#: [id number] Vancomycin HCl 1,500 mg In 535 / 535 530 / 530 Sodium Chloride 0.9% 500 ml @ 200 mls/hr IV Q24H [facility] Rx#: [id number] cefTRIAXone SODIUM 2,000 mg In 50 / 50 50 ml @ 100 mls/hr IV NOW [facility] Rx#:[id number] Left Wrist 300 / 300 Output: Urine 940 / 940 Other: Weight 86.3 kg 85.4 kg Weight Measurement Method Built in [facility] Built in [facility] (1) Atrial flutter Atrial flutter type: typical Qualified Code(s): I48.3 - Typical atrial flutter
--- NOTE | 2024-04-16 12:40 | Hospitalist Progress Note ---
Date of Service April 16, 2024 Assessment & Plan (1) Cellulitis of leg, right: Plan: Mr. Medina is a 73-year-old male coming from [facility] with past medical history significant for hypertension, hyperlipidemia, history of bipolar disorder, pulmonary fibrosis, pleural plaque admitted for management of cellulitis. Patient noted erythema in the right lower extremity extending streak-like into his groin and very tender in groin region and patient states it started about 2 to 3 days prior to admission. #Sepsis 2/2 bacteremia/cellulitis #Right leg cellulitis with lymphangiitis #GPC bacteremia Extending into the right groin History of right inguinal hernia repair MRSA negative Doppler negative for DVT CT ABP with corresponding right inguinal lymphadenopathy Blood cultures with GPC + Discontinue zosyn Continue Vanc ID consult iso lymphangiitis and bacteremia Monitor response #Rapid a flutter, New onset ECHO 60-65%, Continue on heparin Close monitoring telemetry Cardiology consult -low-dose metoprolol 12.5 mg twice daily. -plan to transition to [facility] prior to discharge. - Consider elective external direct-current cardioversion after 4 weeks of adequate anticoagulation. #Elevated troponin iso atrial flutter and sepsis ekg in am monitor on tele #Transaminitis, likely iso sepsis Total bilirubin 0.6\\AST 115\\ALT 87 Alkaline phosphatase [address] repeat in am #Hypomagnesia Will replace repeat in am #Hyponatremia Sodium 127 on admission, likely 2/2 sepsis and poor po intake Continue IVF for 1 more bag #Possible BPH monitor for urinary retention. #Hyperlipidemia On statin Will hold for elevated LFTs for now, resume when able #Hypertension Will hold lisinopril/hydrochlorothiazide, resume when able Closely monitor DVT prophylaxis IV heparin Disposition Telemetry Full code. Admission and Anticipated Discharge Date Admission Date: April 15, 2024 Subjective NAEO Reports marginal improvement since admission overnight Denies any pain, fevers, chills Reports "tightness" in leg but otherwise improving denies any trauma to the area or clear precipitating factor Physical Exam Constitutional: WD/WN, vitals as above Respiratory: normal respiratory effort, lungs clear to auscultation Cardiovascular: irregular, normal rate Gastrointestinal (Abdomen): normal bowel sounds, soft, nontender, no hepatosplenomegaly Skin: RLE erythema and edema predominaly around ankle, with streaking up anterior extremity extending superiorly and medially stopping mid thigh Results & Data Results & Data Vital Signs (Past 12 Hours) Vital Signs Temp Pulse Resp BP Pulse Ox O2 Del Method 04/16/24 10:47 36.8 C 88 18 113/74 97 Room Air 04/16/24 07:07 37.6 C H 83 18 106/62 94 Room Air 04/16/24 05:25 37.7 C H 90 18 129/69 98 Room Air Laboratory Results Short CBC 04/15/24 Range/Units 19:00 WBC 8.31 (4.8-10.8) K/ul Hgb 13.9 L (14.0-18.0) g/dl Hct 41.2 L (42.0-52.0) % Plt Count 205 (130-400) K/uL BMP 04/15/24 04/16/24 04/16/24 19:00 07:09 07:09 Sodium 127 L 130 L Potassium 3.9 3.7 Chloride 95 L 100 Carbon Dioxide 26 23 BUN 17 14 Creatinine 1.17 1.00 1.01 Glucose 100 H 112 H Calcium 9.0 7.9 L Liver Function 04/15/24 Range/Units 19:00 Total Bilirubin 0.6 (0.2-1.0) mg/dl Direct Bilirubin 0.2 (0-0.2) mg/dl AST 115 H (13-39) U/L ALT 87 H (7-52) U/L Alkaline Phosphatase 133 H (34-104) U/L Albumin 3.6 (3.4-5.0) gm/dl Urine 04/15/24 Range/Units 19:33 Urine Color Yellow Urine Appearance Clear (Clear) Urine pH 6.5 (4.5-7.5) Ur Specific [place] 1.015 (1.000-1.030) Urine Protein Trace H (Negative) Urine Glucose (UA) Negative (Negative) Medications Administered Home Medications Medication Instructions Recorded Confirmed Last Taken albuterol sulfate 90 mcg/actuation 2 puff inhalation QID PRN 04/15/24 04/15/24 Unknown aerosol inhaler Shortness Of Breath Or Wheezing aspirin 81 mg tablet,delayed 81 mg PO DAILY 04/15/24 04/15/24 Unknown release atorvastatin 40 mg tablet 40 mg PO DAILY 04/15/24 04/15/24 Unknown lisinopril 20 1 tab PO DAILY 04/15/24 04/15/24 Unknown mg-hydrochlorothiazide 25 mg tablet Active Medications Generic Name Dose Route Start Last Admin Trade Name Rao PRN Reason Stop Dose Admin Acetaminophen 650 mg 04/15/24 23:44 04/16/24 06:01 Acetaminophen 325 Mg Tab PO 05/15/24 23:43 650 mg Q4H PRN Administration Pain or Fever Aspirin 81 mg 04/16/24 09:00 04/16/24 09:50 Aspirin 81 Mg Ectab PO 05/16/24 08:59 81 mg DAILY OTILIA Administration Sodium Chloride 1,000 mls @ 125 mls/hr 04/15/24 23:44 04/16/24 10:17 Nss IV 05/15/24 23:43 125 mls/hr .Q8H OTILIA Administration Heparin Sodium/Dextrose 25,000 units in 500 mls @ 28 mls/hr 04/15/24 23:44 04/16/24 07:15 Heparin Sodium/Dextrose IV 05/15/24 23:43 1,400 units/hr .[id number] OTILIA 28 mls/hr Titration Protocol 1,400 UNITS/HR Vancomycin HCl 1,500 mg/ 530 mls @ 200 mls/hr 04/16/24 06:00 04/16/24 10:17 Sodium Chloride IV 04/23/24 05:59 Infused Q24H OTILIA Infusion
[2024-04-16] MEDS ORDERED: POTASSIUM PHOS 3 MMOL/1 ML INFUSION IV STA (12:56)
--- NOTE | 2024-04-16 13:06 | Pharmacy Report ---
Pharmacy PK ABX Note - Date of Service April 16, 2024 - Assessment and Plan Assessment 73 year old M receiving empiric vancomycin for treatment of RLE cellulitis extending into groin. Patient incarcerated w/ history of right inguinal hernia repair. Pertinent microbiologic data includes: negative MRSA nasal swab, blood culture 1 of 2 growing gram-positive cocci in chains (Streptococcus species per BCID2). Infectious diseases consulted. Day # 2 of antimicrobial therapy. Plan Vancomycin * Loading dose: 1750 mg IV x 1 * Maintenance dose: 1500 mg IV every 24 hours originally, but changed to 1250 mg IV q18h upon repeat lab results * Regimen is predicted to achieve target AUC/EDDIE of 400-600 mg/L.hr * Random level ordered for: 04/18/24 Pharmacy will continue to follow and will adjust dose/frequency as necessary. Thank you. Pharmacy has transitioned to AUC monitoring for vancomycin. AUC/EDDIE is the preferred PK/PD target and is associated with decreased risk of nephrotoxicity compared to traditional trough targets.
[2024-04-16] MEDS: POTASSIUM PHOSPHATE 30 MMOL in SODIUM CHLORIDE 0.9% 500 ML IV ONE (13:37)
[2024-04-16] MEDS: METOPROLOL TARTRATE 50 MG TAB PO STA (16:54)
[2024-04-16] MEDS: VANCOMYCIN HCL 1,250 MG in SODIUM CHLORIDE 0.9% 250 ML IV SCH (22:11)
[2024-04-16] MEDS: METOPROLOL TARTRATE 25 MG TAB PO SCH (22:22)
[2024-04-17] MEDS: COUGH DROP (SUGAR FREE) LOZ 24 LOZ/1 BOX BUCCAL PRN (06:38)
[2024-04-17 07:15] LABS: Hematocrit (blood only) 36.6 % (42.0-52.0); Hemoglobin 12.3 g/dl (14.0-18.0); Mean Corpuscular Hgb Conc 33.6 g/dL (32.0-36.0); Mean Corpuscular Volume 89.3 fL (80.0-100.0); Mean Platelet Volume 9.6 fL (9.4-12.4); Platelet Count 196 K/uL (130-400); RDW Coefficient of Variation 13.8 % (11.5-14.5); RDW Standard Deviation 45.2 fL (36.4-46.3); White Blood Count 13.74 K/ul (4.8-10.8)
[2024-04-17 07:18] LABS: Albumin Level 2.9 gm/dl (3.4-5.0); BUN Creatinine Ratio 15.6 (10-20); Bilirubin,Total 0.8 mg/dl (0.2-1.0); Calcium 8.3 mg/dl (8.6-10.3); Creatinine Clr Calc Pharmacy 69.7 ml/min; Est GFR (African American) 89.9 ml/min; Est GFR (Non-African American) 77.6 ml/min; Globulin 2.8 gm/dl (2.5-4.0); Phosphorus 1.8 mg/dl (2.5-4.9); Potassium 4.1 mmol/L (3.5-5.1); Total Protein 5.7 gm/dl (6.0-8.3)
[2024-04-17 07:23] LABS: ANTI-Xa, UFH(UnfractionatedHep 0.38 IU/ml (0.3-0.7)
[2024-04-17] MEDS ORDERED: SODIUM PHOSPHATE 3 MMOL/1 ML INFUSION IV STA (09:57)
[2024-04-17] MEDS: SODIUM PHOSPHATE 21 MMOL in SODIUM CHLORIDE 0.9% 500 ML IV ONE (10:34)
--- NOTE | 2024-04-17 12:00 | Hospitalist Progress Note ---
Date of Service April 17, 2024 Assessment & Plan (1) Cellulitis of leg, right: Plan: Mr. Medina is a 73-year-old male coming from [facility] with past medical history significant for hypertension, hyperlipidemia, history of bipolar disorder, pulmonary fibrosis, pleural plaque admitted for management of cellulitis. Patient noted erythema in the right lower extremity with extending streaks into his groin and very tender in groin region. Patient states it started about 2 to 3 days prior to admission. Sepsis secondary to bacteremia/cellulitis Right leg cellulitis with lymphangiitis Bacteremia Extending into the right groin History of right inguinal hernia repair MRSA negative Doppler negative for DVT CT abd/pelvis with corresponding right inguinal lymphadenopathy Blood cultures with Group G Beta strep Discontinue zosyn Continue Vanc ID consult in setting of lymphangiitis and bacteremia. Recommended/stated the following: - Recommend continuing Vancomycin IV, agree with stopping Zosyn IV. - Recommend waiting until Strep susceptibilities return, when they return please contact ID and will give additional plan - we will not continue to monitor, for additional recommendation please contact ID directly through tiger text or call. Thank you for your consult. Follow sensitivities as advised by ID, will contact once available Continue to monitor Rapid a flutter, New onset EKG on admission noting trial flutter with variable AV block Trop elevated at 28.2 with note peak of 38.5 ECHO with EF of 60-65%, mild LVH, mild TR and mild left atrium dilation. No pulm htn Cardiology consulted, appreciate recs. Recommended/stated the following: -Recommend rate control strategy. -Titrate metoprolol to 25 mg twice daily. -Continue IV anticoagulation with heparin. -Transition to Eliquis prior to discharge. -Consider elective external direct-current cardioversion after 4 weeks of adequate anticoagulation. -Continue telemetry monitoring during hospitalization. -Repeat ECG in AM. -Minimally elevated high-sensitivity troponin secondary to demand ischemia in the setting of rapid atrial flutter and sepsis. -Management of bacteremia/sepsis/cellulitis as per internal medicine. -Consider addition of low-dose diuretic to improve control of right lower extremity edema and significant positive fluid balance since admission. Continue IV heparin, po metoprolol tartrate 25mg BID Continue to monitor on telemetry Lower extremity edema Started on po lasix 20mg daily per cardiology recs above Monitor Is and Os Consider kim placement Elevated troponin Demand ischemia in setting of atrial flutter and sepsis monitor on tele Transaminitis Total bilirubin 0.6\AST 115\ALT 87 Alkaline phosphatase 133 likely in setting of sepsis stable CT Downtrending Anemia, chronic Hgb of 12 currently AM anemia panel Hypomagnesia Replete as needed Hyponatremia Sodium 127 on admission, likely secondary to sepsis and poor po intake Continue IVF for 1 more bag improving Possible BPH monitor for urinary retention Hyperlipidemia On statin Will hold for elevated LFTs for now, resume when able Hypertension Will hold lisinopril/hydrochlorothiazide, resume when able Closely monitor Diet: HH DVT prophylaxis: IV heparin Dispo: Return to long-term once medically stable Admission and Anticipated Discharge Date Admission Date: April 15, 2024 Subjective pt was seen with guards at bedside. Denied chest pain, SOB or palpitations. States right leg appears the same. Review of Systems Review of Systems: All systems reviewed & are unremarkable except as noted in Subjective Physical Exam Physical Exam: General: Alert. No acute distress Skin: right lower extremity with noted erythema Psych: Appropriate mood and affect Neuro: difficulty with movements in the bed HEENT: NC/AT CV: RRR Resp: Breath sounds clear bilaterally, no increased effort of breathing Abdomen: Soft, nontender, nondistended Extremities: edema in lower extremities bilaterally, right lower extremity with noted erythema Results & Data Results & Data Vital Signs (Past 12 Hours) Vital Signs Temp Pulse Pulse Resp BP Pulse Ox O2 Del Method 04/17/24 11:34 36.8 C 69 16 140/77 97 Room Air 04/17/24 09:07 90 04/17/24 08:00 36.9 C 78 18 166/88 H 98 Room Air 04/17/24 03:10 36.8 C 87 19 135/82 97 Room Air Diagnostic Findings Chest X-Ray 04/15/24 18:55 XR chest 1V portable HISTORY: Sepsis COMPARISON: None. FINDINGS: There is a 2.4 cm pleural-based nodule within the periphery the left lower lung zone. Otherwise, lungs are clear. The heart is borderline enlarged. There are calcifications within the aortic knob. No pleural effusions. No pneumothorax. IMPRESSION: 1. No acute process within the chest. 2. A 2.4 cm pleural-based nodule within the left lower lung zone. Follow-up nonemergent chest CT recommended for further evaluation. This report was called/faxed to the emergency department following dictation. ACT 112: Positive. There are findings on this exam that require communication between the performing entity and the patient following Patient Test Result Information Act ([place] Act 112) guidelines. Electronically signed by: Alton Rico M.D. 04/16/2024 7:12 AM Venous Doppler Study 04/15/24 18:55 Exam(s): US VENOUS RIGHT LOWER EXTREMITY EXAM: US Duplex Right Lower Extremity Veins CLINICAL HISTORY: Reason for exam: swelling. TECHNIQUE: Real-time duplex ultrasound scan of the right lower extremity veins integrating B-mode two-dimensional vascular structure, Doppler spectral analysis, color flow Doppler imaging and compression. COMPARISON: No relevant prior studies available. FINDINGS: Deep veins: Unremarkable. No DVT of the RIGHT lower extremity. Superficial veins: Unremarkable. No thrombus in the visualized great saphenous vein. Soft tissues: No acute findings. No popliteal cyst. Lymph nodes: RIGHT inguinal lymph nodes measure up to 4.6 x 1.8 cm. Correlate for infection. IMPRESSION: 1. No DVT of the RIGHT lower extremity. 2. RIGHT inguinal lymph nodes measure up to 4.6 x 1.8 cm. Correlate for infection. Electronically signed by: Donald Ashley MD 04/16/24 00:53 AM Abdomen/Pelvis CT 04/15/24 23:10 Exam(s): CT ABDOMEN + PELVIS With Contrast IV Amt: 93 ML OPTIRAY 320 EXAM: CT Abdomen and Pelvis With Intravenous Contrast CLINICAL HISTORY: Reason for exam: hx of hernia repair. erythmatous changes in groin.. TECHNIQUE: Axial computed tomography images of the abdomen and pelvis with intravenous contrast. CTDI is 25.93 mGy and DLP is 1304.47 mGy-cm. Automated exposure control was utilized for the study. A dose lowering technique was utilized adhering to the principles of ALARA. CONTRAST: Patient received 93 ML OPTIRAY 320 of IV contrast COMPARISON: No relevant prior studies available. FINDINGS: Lung bases: Unremarkable. No mass. No consolidation. ABDOMEN: Liver: Unremarkable. No mass. Gallbladder and bile ducts: Unremarkable. No calcified stones. No ductal dilation. Pancreas: Unremarkable. No mass. No ductal dilation. Spleen: Unremarkable. No splenomegaly. Adrenals: Unremarkable. No mass. Kidneys and ureters: Unremarkable. No solid mass. No hydronephrosis. Stomach and bowel: Diverticulosis, without acute diverticulitis. No small bowel obstruction. No free intraperitoneal air. PELVIS: Appendix: No findings to suggest acute appendicitis. Bladder: Unremarkable. No mass. Reproductive: Unremarkable as visualized. ABDOMEN and PELVIS: Intraperitoneal space: Unremarkable. No free air. No significant fluid collection. Bones/joints: Degenerative changes of the spine. No acute fracture. No dislocation. Soft tissues: See below. Vasculature: Atherosclerotic changes of the aorta. No abdominal aortic aneurysm. Lymph nodes: Multiple enlarged RIGHT inguinal lymph nodes with surrounding edema. Correlate for RIGHT lower extremity infection or cellulitis of the RIGHT inguinal region. IMPRESSION: 1. Multiple enlarged RIGHT inguinal lymph nodes with surrounding edema. Correlate for RIGHT lower extremity infection or cellulitis of the RIGHT inguinal region. 2. Diverticulosis, without acute diverticulitis. No small bowel obstruction. No free intraperitoneal air. Electronically signed by: Donald Ashley MD 04/16/24 01:18 AM
--- NOTE | 2024-04-17 13:22 | Cardiology Progress Note ---
Date of Service April 17, 2024 Assessment & Plan (1) Atrial flutter: (2) Elevated troponin I level: (3) Cellulitis of leg, right: (4) Bacteremia due to Gram-positive bacteria: Plan 73-year-old male presents with right lower extremity cellulitis and sepsis. Incidentally noted atrial flutter with rapid ventricular response on presentation. Recommend rate control strategy. Titrate metoprolol to 25 mg twice daily. Continue IV anticoagulation with heparin. Transition to Eliquis prior to discharge. Consider elective external direct-current cardioversion after 4 weeks of adequate anticoagulation. Continue telemetry monitoring during hospitalization. Repeat ECG in AM. Minimally elevated high-sensitivity troponin secondary to demand ischemia in the setting of rapid atrial flutter and sepsis. Management of bacteremia/sepsis/cellulitis as per internal medicine. Consider addition of low-dose diuretic to improve control of right lower extremity edema and significant positive fluid balance since admission. I spent a total of 40 minutes on the date of service in preparation, delivery, and documentation of the care provided to this patient, excluding any time spent in the performance of separately billed services. Admission and Anticipated Discharge Date Admission Date: April 15, 2024 Subjective Patient seen and examined at the bedside. Intermittent elevated heart rates noted on telemetry. No bradycardia or pauses recorded. Right lower extremity edema somewhat more prominent today. Denies orthopnea or PND. Offers no compla ints. Review of Systems Review of Systems: All systems reviewed & are unremarkable except as noted in Subjective Physical Exam Constitutional: well nourished; no acute distress Respiratory: normal respiratory effort; no respiratory distress, no labored breathing and no retractions Cardiovascular: Rate/Rhythm: + irregularly irregular Heart Sounds: normal S1 and normal S2; no murmur Vessels: no JVD and no carotid bruit Extremities: + edema (2+ RLE edema. + Erythema) Gastrointestinal (Abdomen): Inspection/Auscultation: normal bowel sounds; abdomen not distended Percussion/Palpation: abdomen soft; abdomen nontender, no guarding and abdomen not rigid Neurologic: CN's II-XI intact bilaterally and moves all extremities; no focal motor deficits Results & Data Vital Signs (Past 12 Hours) Vital Signs Temp Pulse Pulse Resp BP Pulse Ox O2 Del Method 04/17/24 11:34 36.8 C 69 16 140/77 97 Room Air 04/17/24 09:07 90 04/17/24 08:00 36.9 C 78 18 166/88 H 98 Room Air 04/17/24 03:10 36.8 C 87 19 135/82 97 Room Air Laboratory Results Cardiac Enzymes 04/16/24 04/17/24 Range/Units 17:23 06:21 AST 56 H (13-39) U/L Troponin I High Sens 37.4 H D (0-20) pg/ml CBC 04/17/24 Range/Units 06:21 WBC 13.74 H (4.8-10.8) K/ul RBC 4.10 L (4.70-6.10) M/uL Hgb 12.3 L (14.0-18.0) g/dl Hct 36.6 L (42.0-52.0) % Plt Count 196 (130-400) K/uL Comprehensive Metabolic Panel 04/17/24 Range/Units 06:21 Sodium 131 L (136-145) mmol/L Potassium 4.1 (3.5-5.1) mmol/L Chloride 101 (98-107) mmol/L Carbon Dioxide 24 (21-32) mmol/L BUN 15 (6-23) mg/dl Creatinine 0.96 (0.6-1.4) mg/dl Glucose 94 (70-99(Fasting)) mg/dl Calcium 8.3 L (8.6-10.3) mg/dl AST 56 H (13-39) U/L ALT 51 (7-52) U/L Alkaline Phosphatase 110 H (34-104) U/L Total Protein 5.7 L (6.0-8.3) gm/dl Albumin 2.9 L (3.4-5.0) gm/dl Intake and Output 04/16/24 04/17/24 04/17/24 22:59 06:59 14:59 Intake Total 1934.067 / 5996.267 1666.267 / 5996.267 Output Total 600 / 1450 300 / 1450 Balance 1334.067 / 4546.267 1366.267 / 4546.267 Intake: IV 1834.067 / 5156.267 1516.267 / 5156.267 Heparin Sodium/Dextrose 25,000 324.067 / 741.267 241.267 / 741.267 units In 500 ml @ 1,400 UNITS/ HR 28 mls/hr IV .[id number] [facility] Rx #:[id number] Potassium Phosphate 30 mmol In 510 / 510 Sodium Chloride 0.9% 500 ml @ 88 mls/hr IV ONE ONE Rx#: [id number] Sodium Chloride 0.9% 1,000 ml @ 1000 / 3000 1000 / 3000 125 mls/hr IV .Q8H [facility] Rx#: [id number] Vancomycin HCl 1,250 mg In 275 / 275 Sodium Chloride 0.9% 250 ml @ 200 mls/hr IV Q18H [facility] Rx#: [id number] Oral 100 / 840 150 / 840 Output: Urine 600 / 1450 300 / 1450 Other: Weight 85.2 kg Weight Measurement Method Built in [facility] (1) Atrial flutter Atrial flutter type: typical Qualified Code(s): I48.3 - Typical atrial flutter
--- NOTE | 2024-04-17 13:34 | Infectious Disease Consult ---
Date of Service April 17, 2024 Telehealth Information I performed this visit using a real-time telehealth connection between my location and the patients location ([facility]). After connecting through interactive tele-video, patient was identified by name and date of and/or wristband check.Patient (or authorized healthcare retail service representative) was informed that this was a telemedicine visit and it was being conducted confidentially over secure lines. My office door was closed and no one else was present in the room with me.Patient (or authorized healthcare retail service representative) provided consent to proceed with the visit, expressed an understanding of privacy and security of the telemedicine visit, and gave permission to have a hospital retail service representative in the room in order to assist with the visit and to conduct portions of the visit, as needed. I informed the patient (or authorized healthcare retail service representative) that I reviewed their record and presented the opportunity for them to ask any questions regarding the visit today. The patient agreed to participate. Assessment & Plan (1) Bacteremia due to Gram-positive bacteria: (2) Cellulitis of leg, right: Plan Assessment: 73-year-old male [facility] with past medical history significant for hypertension, hyperlipidemia, history of bipolar disorder, pulmonary fibrosis, pleural plaque who presented to [facility] on 04/15/2024 for erythema in the right lower extremity extending streak-like from his right foot to his right groin and very tender in groin region and patient states it started about 2 to 3 days ago. Per notes and chart review, pt denied any fevers. Ambulates with cane. Denies headache. (+) nausea and vomiting. Pt has a leukocytosis of 13. Infectious work-up showed blood culture (+) for Group G Strep. Plan: - Recommend continuing Vancomycin IV, agree with stopping Zosyn IV. - Recommend waiting until Strep susceptibilities return, when they return please contact ID and will give additional plan - we will not continue to monitor, for additional recommendation please contact ID directly through tiger text or call. Thank you for your consult. History of Present Illness History of Present Illness Reason for consult: cellutlitis with G+ bacteremia 73-year-old male [facility] with past medical history significant for hypertension, hyperlipidemia, history of bipolar disorder, pulmonary fibrosis, pleural plaque who presented to [facility] on 04/15/2024 for erythema in the right lower extremity extending streak-like from his right foot to his right groin and very tender in groin region and patient states it started about 2 to 3 days ago. Per notes and chart review, pt denied any fevers. Ambulates with cane. Denies headache. (+) nausea and vomiting. Pt has a leukocytosis of 13. Infectious work-up showed blood culture (+) for Group G Strep. ID consulted for evaluation. Allergies Allergy/AdvReac Type Severity Reaction Status Date / Time No Known Allergies Allergy Verified 04/15/24 21:18 Home Medications Medication Instructions Recorded Confirmed Type albuterol sulfate 90 mcg/actuation 2 puff inhalation QID PRN 04/15/24 04/15/24 History aerosol inhaler Shortness Of Breath Or Wheezing aspirin 81 mg tablet,delayed 81 mg PO DAILY 04/15/24 04/15/24 History release atorvastatin 40 mg tablet 40 mg PO DAILY 04/15/24 04/15/24 History lisinopril 20 1 tab PO DAILY 04/15/24 04/15/24 History mg-hydrochlorothiazide 25 mg tablet Patient History Medical History HLD (hyperlipidemia) Pleural plaque Pulmonary fibrosis Bronchiectasis Unilateral inguinal hernia Constipation Surgical History H/O right inguinal hernia repair (10/05/21) Right Open Inguinal Hernia with Bassini Repair, Excision right lipoma of cord(Right) - Bob Blackman MD, FACS 10/05/2021 H/O splenectomy Social History Smoking Status: Never smoker Hx Alcohol Use: No Hx Substance Use: No Preferred Language: Stateless Communication Ability: Effective Visual Impairment: No Limitations Aircraft Electronics Technical Officer Required: No Beliefs That Will Affect Care: None Current Living Situation: Other Current Living Situation Comment: Inmate Feels Safe at Home: Declines to Answer Assistive Devices: Cane Review of Systems ROS negative except for RLE pain and swelling. Physical Exam Gen: AAOx3, WNL Results & Data Vital Signs (Past 12 Hours) Vital Signs Temp Pulse Pulse Resp BP Pulse Ox O2 Del Method 04/17/24 11:34 36.8 C 69 16 140/77 97 Room Air 04/17/24 09:07 90 04/17/24 08:00 36.9 C 78 18 166/88 H 98 Room Air 04/17/24 03:10 36.8 C 87 19 135/82 97 Room Air Laboratory Results 04/15/24 19:55 Aerobic Blood Culture - Preliminary Blood No growth in Aerobic bottle after 24 hours. Anaerobic Blood Culture - Final 04/15/24 19:55 Aerobic Blood Culture - Preliminary Blood Group G Beta Strep Anaerobic Blood Culture - Final 04/17/24 04/16/24 06:21 17:23 WBC 13.74 H RBC 4.10 L Hgb 12.3 L Hct 36.6 L MCV 89.3 MCH 30.0 MCHC 33.6 RDW Std Deviation 45.2 RDW Coeff of Hanane 13.8 Plt Count 196 MPV 9.6 Heparin Anti-Xa, Unfract 0.38 Sodium 131 L Potassium 4.1 Chloride 101 Carbon Dioxide 24 Anion Gap 6 BUN 15 Creatinine 0.96 Est Cr Clr Drug Dosing 69.7 Est GFR ( Amer) 89.9 Est GFR (Non-Af Amer) 77.6 BUN/Creatinine Ratio 15.6 Glucose 94 Calcium 8.3 L Phosphorus 1.8 L Magnesium 2.0 Total Bilirubin 0.8 AST 56 H ALT 51 Alkaline Phosphatase 110 H Troponin I High Sens 37.4 H D Total Protein 5.7 L Albumin 2.9 L Globulin 2.8 Albumin/Globulin Ratio 1.0 Diagnostic Findings RLE US on 04/15/2024 IMPRESSION: 1. No DVT of the RIGHT lower extremity. 2. RIGHT inguinal lymph nodes measure up to 4.6 x 1.8 cm. Correlate for infection. CT abd/pelvis on 04/15/2024 IMPRESSION: 1. Multiple enlarged RIGHT inguinal lymph nodes with surrounding edema. Correlate for RIGHT lower extremity infection or cellulitis of the RIGHT inguinal region. 2. Diverticulosis, without acute diverticulitis. No small bowel obstruction. No free intraperitoneal air. TTE on 04/16/2024 No vegetation seen. Medications Administered Home Medications Medication Instructions Recorded Confirmed Last Taken albuterol sulfate 90 mcg/actuation 2 puff inhalation QID PRN 04/15/24 04/15/24 Unknown aerosol inhaler Shortness Of Breath Or Wheezing aspirin 81 mg tablet,delayed 81 mg PO DAILY 04/15/24 04/15/24 Unknown release atorvastatin 40 mg tablet 40 mg PO DAILY 04/15/24 04/15/24 Unknown lisinopril 20 1 tab PO DAILY 04/15/24 04/15/24 Unknown mg-hydrochlorothiazide 25 mg tablet Active Medications Generic Name Dose Route Start Last Admin Trade Name Rao PRN Reason Stop Dose Admin Acetaminophen 650 mg 04/15/24 23:44 04/17/24 10:34 Acetaminophen 325 Mg Tab PO 05/15/24 23:43 650 mg Q4H PRN Administration Pain or Fever Aspirin 81 mg 04/16/24 09:00 04/17/24 10:18 Aspirin 81 Mg Ectab PO 05/16/24 08:59 81 mg DAILY OTILIA Administration Heparin Sodium/Dextrose 25,000 units in 500 mls @ 28 mls/hr 04/15/24 23:44 04/17/24 06:58 Heparin Sodium/Dextrose IV 05/15/24 23:43 1,400 units/hr .[id number] OTILIA 28 mls/hr Titration Protocol 1,400 UNITS/HR Vancomycin HCl 1,250 mg/ 275 mls @ 200 mls/hr 04/16/24 20:00 04/16/24 23:34 Sodium Chloride IV 04/23/24 19:59 Infused Q18H OTILIA Infusion Sodium Phosphate 21 mmol/ 507 mls @ 145 mls/hr 04/17/24 10:15 04/17/24 10:34 Sodium Chloride IV 04/17/24 13:44 145 mls/hr ONE ONE Administration Menthol 1 shira 04/17/24 05:54 04/17/24 06:38 Cough Drop (Sugar Free) Shira 24 Shira/1 Box BUCCAL 05/17/24 05:53 1 shiar TID PRN Administration Sore Throat
[2024-04-17] MEDS: FUROSEMIDE 20 MG TAB PO SCH (18:35)
--- NOTE | 2024-04-17 20:00 | Electrocardiogram Report ---
Test Reason : Blood Pressure : / mmHG Vent. Rate : 159 BPM Atrial Rate : 359 BPM P-R Int : 000 ms QRS Dur : 094 ms QT Int : 318 ms P-R-T Axes : 089 -01 034 degrees QTc Int : 517 ms Atrial flutter with variable A-V block Abnormal ECG When compared with ECG of 16-APR-2024 05:56, Vent. rate has increased BY 66 BPM Confirmed by Palomo Narayanan ([id number]) on 04/17/2024 8:00:22 PM Referred By: [facility] Confirmed By:Palomo Narayanan
[2024-04-17] MEDS: METOPROLOL TARTRATE 25 MG TAB PO SCH (20:37)
[2024-04-18 06:03] LABS: Basophils # (auto) 0.03 K/uL (0.00-0.20); Basophils % (auto) 0.3 %; Eosinophils # (auto) 0.11 K/uL (0.00-0.50); Hematocrit (blood only) 32.7 % (42.0-52.0); Hemoglobin 11.2 g/dl (14.0-18.0); Immature Granulocytes # (auto) 0.14 K/uL (0.01-0.20); Immature Granulocytes % (auto) 1.3 %; Lymphocytes # (auto) 1.67 K/uL (1.20-3.40); Lymphocytes % (auto) 15.4 %; Mean Corpuscular Hemoglobin 29.8 pg (25.0-34.0); Mean Corpuscular Hgb Conc 34.3 g/dL (32.0-36.0); Mean Platelet Volume 9.6 fL (9.4-12.4); Monocytes # (auto) 0.56 K/uL (0.11-0.59); Monocytes % (auto) 5.2 %; Neutrophils # (auto) 8.35 K/uL (1.40-6.50); Neutrophils % (auto) 76.8 %; Platelet Count 206 K/uL (130-400); RDW Coefficient of Variation 13.6 % (11.5-14.5); RDW Standard Deviation 43.5 fL (36.4-46.3); Red Blood Count 3.76 M/uL (4.70-6.10); White Blood Count 10.86 K/ul (4.8-10.8)
[2024-04-18 06:18] LABS: Albumin Globulin Ratio 0.9 (0.9-2); Albumin Level 2.5 gm/dl (3.4-5.0); BUN Creatinine Ratio 14.9 (10-20); Bilirubin,Total 0.8 mg/dl (0.2-1.0); Calcium 8.1 mg/dl (8.6-10.3); Creatinine Clr Calc Pharmacy 76.9 ml/min; Est GFR (African American) 98.5 ml/min; Globulin 2.7 gm/dl (2.5-4.0); Magnesium 1.9 mg/dl (1.7-2.4); Phosphorus 1.9 mg/dl (2.5-4.9); Potassium 3.8 mmol/L (3.5-5.1); Total Protein 5.2 gm/dl (6.0-8.3)
[2024-04-18 06:28] LABS: ANTI-Xa, UFH(UnfractionatedHep 0.26 IU/ml (0.3-0.7)
[2024-04-18 06:37] LABS: Ferritin 448.5 ng/ml (8-388)
[2024-04-18 06:42] LABS: Folate (Folic Acid),Ser orPlas 12.39 ng/ml (>5.38)
[2024-04-18] MEDS: VANCOMYCIN LEVEL ONE (07:42)
[2024-04-18] MEDS: FERROUS SULFATE 325 MG/7.4 ML UDP PO SCH (11:19)
[2024-04-18] MEDS: POT PHOSPHATE MONOBASIC W/ SOD TAB PO SCH (11:19)
[2024-04-18 13:23] LABS: ANTI-Xa, UFH(UnfractionatedHep 0.28 IU/ml (0.3-0.7)
--- NOTE | 2024-04-18 14:10 | Hospitalist Progress Note ---
Date of Service April 18, 2024 Assessment & Plan (1) Cellulitis of leg, right: Plan: Mr. Medina is a 73-year-old male coming from [facility] with past medical history significant for hypertension, hyperlipidemia, history of bipolar disorder, pulmonary fibrosis, pleural plaque admitted for management of cellulitis. Patient noted erythema in the right lower extremity with extending streaks into his groin and very tender in groin region. Patient states it started about 2 to 3 days prior to admission. Sepsis secondary to bacteremia/cellulitis Right leg cellulitis with lymphangiitis Bacteremia Extending into the right groin History of right inguinal hernia repair MRSA negative Doppler negative for DVT CT abd/pelvis with corresponding right inguinal lymphadenopathy Blood cultures with Group G Beta strep Discontinue zosyn Continue Vanc ID consult in setting of lymphangiitis and bacteremia. Recommended/stated the following: - Recommend continuing Vancomycin IV, agree with stopping Zosyn IV. - Recommend waiting until Strep susceptibilities return, when they return please contact ID and will give additional plan - we will not continue to monitor, for additional recommendation please contact ID directly through tiger text or call. Thank you for your consult. Follow sensitivities as advised by ID, will contact once available -switched to IV ampicillin Continue to monitor Rapid a flutter, New onset EKG on admission noting trial flutter with variable AV block Trop elevated at 28.2 with note peak of 38.5 ECHO with EF of 60-65%, mild LVH, mild TR and mild left atrium dilation. No pulm htn Cardiology consulted, appreciate recs. Recommended/stated the following: -Recommend rate control strategy. -Titrate metoprolol to 25 mg twice daily. -Continue IV anticoagulation with heparin. -Transition to Eliquis prior to discharge. -Consider elective external direct-current cardioversion after 4 weeks of adequate anticoagulation. -Continue telemetry monitoring during hospitalization. -Repeat ECG in AM. -Minimally elevated high-sensitivity troponin secondary to demand ischemia in the setting of rapid atrial flutter and sepsis. -Management of bacteremia/sepsis/cellulitis as per internal medicine. -Consider addition of low-dose diuretic to improve control of right lower extremity edema and significant positive fluid balance since admission. Continue IV heparin, po metoprolol tartrate 25mg BID Continue to monitor on telemetry Lower extremity edema Started on po lasix 20mg daily per cardiology recs above Monitor Is and Os transitioned to IV Lasix 20mg BID Consider kim placement Elevated troponin Demand ischemia in setting of atrial flutter and sepsis monitor on tele Transaminitis Total bilirubin 0.6\AST 115\ALT 87 Alkaline phosphatase 133 likely in setting of sepsis stable CT Downtrending Anemia, chronic Hgb of 12 currently AM anemia panel noting iron deficiency anemia started on oral iron supplement Hypomagnesia Replete as needed Hyponatremia Sodium 127 on admission, likely secondary to sepsis and poor po intake Continue IVF for 1 more bag improving Hypophosphatemia On supplements supplement as needed Possible BPH monitor for urinary retention Hyperlipidemia On statin Will hold for elevated LFTs for now, resume when able Hypertension Will hold lisinopril/hydrochlorothiazide, resume when able Closely monitor Diet: HH DVT prophylaxis: IV heparin [facility] Admission and Anticipated Discharge Date Admission Date: April 15, 2024 Subjective pt was seen with guards at bedside. denied acute concerns, no chest pain, SOB, palpitations Review of Systems Review of Systems: All systems reviewed & are unremarkable except as noted in Subjective Physical Exam Physical Exam: General: Alert. No acute distress Skin: right lower extremity with noted erythema Psych: Appropriate mood and affect Neuro: difficulty with movements in the bed HEENT: NC/AT CV: RRR Resp: Breath sounds clear bilaterally, no increased effort of breathing Abdomen: Soft, nontender, nondistended Extremities: edema in lower extremities bilaterally, right lower extremity with noted erythema Results & Data Results & Data Vital Signs (Past 12 Hours) Vital Signs Temp Pulse Pulse Resp BP Pulse Ox O2 Del Method 04/18/24 12:00 36.5 C 77 18 159/74 H 95 Room Air 04/18/24 09:37 94 H 04/18/24 08:00 36.9 C 78 16 164/99 H 97 Room Air 04/18/24 02:50 37.1 C 89 18 143/80 H 94 Room Air
--- NOTE | 2024-04-18 14:23 | Cardiology Progress Note ---
Date of Service April 18, 2024 Assessment & Plan (1) Atrial flutter: (2) Elevated troponin I level: (3) Cellulitis of leg, right: (4) Bacteremia due to Gram-positive bacteria: Plan 73-year-old male presents with right lower extremity cellulitis and sepsis. Incidentally noted atrial flutter with rapid ventricular response on presentation. Continue rate control strategy. Titrate metoprolol to 25 mg TID. Continue IV anticoagulation with heparin. Transition to Eliquis prior to discharge. Fluid balance positive approximately 7 L since admission with worsening right lower extremity edema. Transition oral Lasix to IV Lasix 20 mg twice daily. Supplement electrolytes as indicated. Consider elective external direct-current cardioversion after 4 weeks of adequate anticoagulation. Continue telemetry monitoring during hospitalization. Repeat ECG in AM. Minimally elevated high-sensitivity troponin secondary to demand ischemia in the setting of rapid atrial flutter and sepsis. Management of bacteremia/sepsis/cellulitis as per internal medicine. I spent a total of 40 minutes on the date of service in preparation, delivery, and documentation of the care provided to this patient, excluding any time spent in the performance of separately billed services. Admission and Anticipated Discharge Date Admission Date: April 15, 2024 Subjective Patient seen examined the bedside. Fair heart rate control on telemetry. Fluid balance remains positive despite addition of low-dose oral diuretic therapy. Patient denies chest pain, shortness of breath, or palpitations. Review of Systems Review of Systems: All systems reviewed & are unremarkable except as noted in Subjective Physical Exam Constitutional: well nourished; no acute distress Respiratory: normal respiratory effort; no respiratory distress, no labored breathing and no retractions Cardiovascular: Rate/Rhythm: + irregularly irregular Heart Sounds: normal S1 and normal S2; no murmur Vessels: no JVD and no carotid bruit Extremities: + edema (2+ RLE edema. + Erythema) Gastrointestinal (Abdomen): Inspection/Auscultation: normal bowel sounds; abdomen not distended Percussion/Palpation: abdomen soft; abdomen nontender, no guarding and abdomen not rigid Neurologic: CN's II-XI intact bilaterally and moves all extremities; no focal motor deficits Results & Data Vital Signs (Past 12 Hours) Vital Signs Temp Pulse Pulse Resp BP Pulse Ox O2 Del Method 04/18/24 12:00 36.5 C 77 18 159/74 H 95 Room Air 04/18/24 09:37 94 H 04/18/24 08:00 36.9 C 78 16 164/99 H 97 Room Air 04/18/24 02:50 37.1 C 89 18 143/80 H 94 Room Air Laboratory Results Cardiac Enzymes 04/18/24 Range/Units 05:21 AST 35 (13-39) U/L CBC 04/18/24 Range/Units 05:21 WBC 10.86 H (4.8-10.8) K/ul RBC 3.76 L (4.70-6.10) M/uL Hgb 11.2 L (14.0-18.0) g/dl Hct 32.7 L (42.0-52.0) % Plt Count 206 (130-400) K/uL Neut # (Auto) 8.35 H (1.40-6.50) K/uL Lymph # (Auto) 1.67 (1.20-3.40) K/uL [place] # (Auto) 0.56 (0.11-0.59) K/uL Eos # (Auto) 0.11 (0.00-0.50) K/uL Baso # (Auto) 0.03 (0.00-0.20) K/uL Comprehensive Metabolic Panel 04/18/24 Range/Units 05:21 Sodium 131 L (136-145) mmol/L Potassium 3.8 (3.5-5.1) mmol/L Chloride 101 (98-107) mmol/L Carbon Dioxide 26 (21-32) mmol/L BUN 13 (6-23) mg/dl Creatinine 0.87 (0.6-1.4) mg/dl Glucose 102 H (70-99(Fasting)) mg/dl Calcium 8.1 L (8.6-10.3) mg/dl AST 35 (13-39) U/L ALT 37 (7-52) U/L Alkaline Phosphatase 123 H (34-104) U/L Total Protein 5.2 L (6.0-8.3) gm/dl Albumin 2.5 L (3.4-5.0) gm/dl Intake and Output 04/17/24 04/18/24 04/18/24 22:59 06:59 14:59 Intake Total 1298.133 / 2412.316 426.2 / 2412.316 483.167 / 483.167 Output Total 1999 400 / 400 Balance 748.133 / 412.316 -623.8 / 412.316 83.167 / 83.167 Intake: IV 413.133 / 1427.316 326.2 / 1427.316 483.167 / 483.167 Heparin Sodium/Dextrose 25,000 138.133 / 661.733 326.2 / 661.733 208.167 / 208.167 units In 500 ml @ 1,500 UNITS/ HR 30 mls/hr IV .[id number] OTILIA Rx #:[id number] Vancomycin HCl 1,250 mg In 275 / 275 275 / 275 Sodium Chloride 0.9% 250 ml @ 200 mls/hr IV Q18H OTILIA Rx#: [id number] Oral 885 / 985 100 / 985 Output: Urine 1999 400 / 400 Other: # Unmeasured Voids 2 Weight 85.5 kg Weight Measurement Method Built in [facility] (1) Atrial flutter Atrial flutter type: typical Qualified Code(s): I48.3 - Typical atrial flutter
[2024-04-18] MEDS: AMPICILLIN 2,000 MG in SODIUM CHLOR 0.9% MINI-B 100 ML IV SCH (17:21)
[2024-04-18] MEDS ORDERED: VANCOMYCIN HCL 1,250 MG in SODIUM CHLORIDE 0.9% 250 ML IV SCH (18:00)
[2024-04-18] MEDS: FUROSEMIDE INJ 20 MG/2 ML VIAL IV SCH (20:08)
[2024-04-18] MEDS: METOPROLOL TARTRATE 25 MG TAB PO SCH (20:08)
[2024-04-18 20:47] LABS: ANTI-Xa, UFH(UnfractionatedHep 0.27 IU/ml (0.3-0.7)
[2024-04-19 04:01] LABS: Basophils # (auto) 0.03 K/uL (0.00-0.20); Basophils % (auto) 0.4 %; Eosinophils # (auto) 0.28 K/uL (0.00-0.50); Eosinophils % (auto) 3.8 %; Hematocrit (blood only) 33.6 % (42.0-52.0); Hemoglobin 11.7 g/dl (14.0-18.0); Immature Granulocytes # (auto) 0.03 K/uL (0.01-0.20); Immature Granulocytes % (auto) 0.4 %; Lymphocytes # (auto) 1.96 K/uL (1.20-3.40); Lymphocytes % (auto) 26.6 %; Mean Corpuscular Hemoglobin 29.6 pg (25.0-34.0); Mean Corpuscular Hgb Conc 34.8 g/dL (32.0-36.0); Mean Corpuscular Volume 85.1 fL (80.0-100.0); Mean Platelet Volume 9.4 fL (9.4-12.4); Monocytes # (auto) 0.67 K/uL (0.11-0.59); Monocytes % (auto) 9.1 %; Neutrophils % (auto) 59.7 %; Platelet Count 266 K/uL (130-400); RDW Coefficient of Variation 13.7 % (11.5-14.5); RDW Standard Deviation 43.1 fL (36.4-46.3); Red Blood Count 3.95 M/uL (4.70-6.10); White Blood Count 7.37 K/ul (4.8-10.8)
[2024-04-19 04:23] LABS: ANTI-Xa, UFH(UnfractionatedHep 0.37 IU/ml (0.3-0.7); Albumin Globulin Ratio 0.8 (0.9-2); Albumin Level 2.6 gm/dl (3.4-5.0); BUN Creatinine Ratio 14.3 (10-20); Bilirubin,Total 0.9 mg/dl (0.2-1.0); Calcium 8.7 mg/dl (8.6-10.3); Creatinine Clr Calc Pharmacy 73.5 ml/min; Est GFR (African American) 95.9 ml/min; Est GFR (Non-African American) 82.7 ml/min; Globulin 3.1 gm/dl (2.5-4.0); Magnesium 1.9 mg/dl (1.7-2.4); Potassium 3.7 mmol/L (3.5-5.1); Total Protein 5.7 gm/dl (6.0-8.3)
[2024-04-19] MEDS: IRON SUCROSE 200 MG in 0.9 % SODIUM CHLORIDE 100 ML IV ONE (09:46)
[2024-04-19] MEDS: DOCUSATE SODIUM 100 MG CAP PO SCH (11:57)
[2024-04-19] MEDS: POLYETHYLENE (MIRALAX) 17 GM PACK PO ONE (11:57)
--- NOTE | 2024-04-19 13:25 | Hospitalist Progress Note ---
Date of Service April 19, 2024 Assessment & Plan (1) Cellulitis of leg, right: Plan: Mr. Medina is a 73-year-old male coming from [facility] with past medical history significant for hypertension, hyperlipidemia, history of bipolar disorder, pulmonary fibrosis, pleural plaque admitted for management of cellulitis. Patient noted erythema in the right lower extremity with extending streaks into his groin and very tender in groin region. Patient states it started about 2 to 3 days prior to admission. Sepsis secondary to bacteremia/cellulitis Right leg cellulitis with lymphangiitis Bacteremia Extending into the right groin History of right inguinal hernia repair MRSA negative Doppler negative for DVT CT abd/pelvis with corresponding right inguinal lymphadenopathy Blood cultures with Group G Beta strep Discontinue zosyn Continue Vanc ID consult in setting of lymphangiitis and bacteremia. Recommended/stated the following: - Recommend continuing Vancomycin IV, agree with stopping Zosyn IV. - Recommend waiting until Strep susceptibilities return, when they return please contact ID and will give additional plan - we will not continue to monitor, for additional recommendation please contact ID directly through tiger text or call. Thank you for your consult. Follow sensitivities as advised by ID, will contact once available -switched to IV ampicillin x 2 weeks Continue to monitor Rapid a flutter, New onset EKG on admission noting trial flutter with variable AV block Trop elevated at 28.2 with note peak of 38.5 ECHO with EF of 60-65%, mild LVH, mild TR and mild left atrium dilation. No pulm htn Cardiology consulted, appreciate recs. Recommended/stated the following: -Recommend rate control strategy. -Titrate metoprolol to 25 mg twice daily. -Continue IV anticoagulation with heparin. -Transition to Eliquis prior to discharge. -Consider elective external direct-current cardioversion after 4 weeks of adequate anticoagulation. -Continue telemetry monitoring during hospitalization. -Repeat ECG in AM. -Minimally elevated high-sensitivity troponin secondary to demand ischemia in the setting of rapid atrial flutter and sepsis. -Management of bacteremia/sepsis/cellulitis as per internal medicine. -Consider addition of low-dose diuretic to improve control of right lower extremity edema and significant positive fluid balance since admission. Continue IV heparin, po metoprolol tartrate 25mg BID Continue to monitor on telemetry Lower extremity edema Started on po lasix 20mg daily per cardiology recs above Monitor Is and Os transitioned to IV Lasix 20mg BID Consider kim placement Elevated troponin Demand ischemia in setting of atrial flutter and sepsis monitor on tele Transaminitis Total bilirubin 0.6\AST 115\ALT 87 Alkaline phosphatase 133 likely in setting of sepsis stable CT Downtrending Anemia, chronic Hgb of 12 currently AM anemia panel noting iron deficiency anemia started on oral iron supplement Hypomagnesia Replete as needed Hyponatremia Sodium 127 on admission, likely secondary to sepsis and poor po intake Continue IVF for 1 more bag improving Hypophosphatemia On supplements supplement as needed Possible BPH monitor for urinary retention Hyperlipidemia On statin Will hold for elevated LFTs for now, resume when able Hypertension Will hold lisinopril/hydrochlorothiazide, resume when able Closely monitor Diet: HH DVT prophylaxis: IV heparin Dispo: Return to senior living once medically stable Admission and Anticipated Discharge Date Admission Date: April 15, 2024 Subjective pt was seen laying in bed. Notes he has been urinating more frequently. declines kim States he has not had a BM for 5 days. Denies palpitations Review of Systems Review of Systems: All systems reviewed & are unremarkable except as noted in Subjective Physical Exam Physical Exam: General: Alert. No acute distress Skin: right lower extremity with noted erythema Psych: Appropriate mood and affect Neuro: difficulty with movements in the bed HEENT: NC/AT CV: RRR Resp: Breath sounds clear bilaterally, no increased effort of breathing Abdomen: Soft, nontender, nondistended Extremities: edema in R lower extremity, right lower extremity with noted erythema Results & Data Results & Data Vital Signs (Past 12 Hours) Vital Signs Temp Pulse Pulse Resp BP Pulse Ox O2 Del Method 04/19/24 12:07 36.7 C 108 H 18 136/93 96 Room Air 04/19/24 08:00 37.0 C 93 H 18 140/87 96 Room Air 04/19/24 07:24 89 04/19/24 02:28 36.7 C 70 20 165/89 H 96 Room Air
--- NOTE | 2024-04-19 14:30 | Infectious Disease Consult ---
Date of Service April 17, 2024 Telehealth Information I performed this visit using a real-time telehealth connection between my location and the patients location ([facility]). After connecting through interactive tele-video, patient was identified by name and date of and/or wristband check.Patient (or authorized healthcare credit resolution representative) was informed that this was a telemedicine visit and it was being conducted confidentially over secure lines. My office door was closed and no one else was present in the room with me.Patient (or authorized healthcare credit resolution representative) provided consent to proceed with the visit, expressed an understanding of privacy and security of the telemedicine visit, and gave permission to have a hospital credit resolution representative in the room in order to assist with the visit and to conduct portions of the visit, as needed. I informed the patient (or authorized healthcare credit resolution representative) that I reviewed their record and presented the opportunity for them to ask any questions regarding the visit today. The patient agreed to participate. History of Present Illness History of Present Illness none. Allergies Allergy/AdvReac Type Severity Reaction Status Date / Time No Known Allergies Allergy Verified 04/15/24 21:18 Home Medications Medication Instructions Recorded Confirmed Type albuterol sulfate 90 mcg/actuation 2 puff inhalation QID PRN 04/15/24 04/15/24 History aerosol inhaler Shortness Of Breath Or Wheezing aspirin 81 mg tablet,delayed 81 mg PO DAILY 04/15/24 04/15/24 History release atorvastatin 40 mg tablet 40 mg PO DAILY 04/15/24 04/15/24 History lisinopril 20 1 tab PO DAILY 04/15/24 04/15/24 History mg-hydrochlorothiazide 25 mg tablet Patient History Medical History HLD (hyperlipidemia) Pleural plaque Pulmonary fibrosis Bronchiectasis Unilateral inguinal hernia Constipation Surgical History H/O right inguinal hernia repair (10/05/21) Right Open Inguinal Hernia with Bassini Repair, Excision right lipoma of cord(Right) - Bob Blackman MD, FACS 10/05/2021 H/O splenectomy Social History Smoking Status: Never smoker Hx Alcohol Use: No Hx Substance Use: No Preferred Language: Pakistani Communication Ability: Effective Visual Impairment: No Limitations Maintenance Technician Required: No Beliefs That Will Affect Care: None Current Living Situation: Other Current Living Situation Comment: Inmate Feels Safe at Home: Declines to Answer Assistive Devices: Cane Results & Data Vital Signs (Past 12 Hours) Vital Signs Temp Pulse Pulse Resp BP Pulse Ox O2 Del Method 04/17/24 11:34 36.8 C 69 16 140/77 97 Room Air 04/17/24 09:07 90 04/17/24 08:00 36.9 C 78 18 166/88 H 98 Room Air 04/17/24 03:10 36.8 C 87 19 135/82 97 Room Air
--- NOTE | 2024-04-19 15:34 | Cardiology Progress Note ---
Date of Service April 19, 2024 Assessment & Plan (1) Atrial flutter: (2) Elevated troponin I level: (3) Cellulitis of leg, right: (4) Bacteremia due to Gram-positive bacteria: Plan 73-year-old male presents with right lower extremity cellulitis and sepsis. Incidentally noted atrial flutter with rapid ventricular response on presentation. Continue rate control strategy. Continue metoprolol to 25 mg TID. Consider transition to 50 mg twice daily pending clinical response. Continue IV anticoagulation with heparin. Transition to Eliquis prior to discharge. Maintain negative fluid balance. Continue IV furosemide 20 mg twice daily. Monitor daily weight, GFR, and electrolytes. Consider elective external direct-current cardioversion after 4 weeks of adequate anticoagulation. Continue telemetry monitoring during hospitalization. Repeat ECG in AM. Minimally elevated high-sensitivity troponin secondary to demand ischemia in the setting of rapid atrial flutter and sepsis. Management of bacteremia/sepsis/cellulitis as per internal medicine. Cardiology will sign off. Please call with additional concerns/questions. I spent a total of 40 minutes on the date of service in preparation, delivery, and documentation of the care provided to this patient, excluding any time spent in the performance of separately billed services. Admission and Anticipated Discharge Date Admission Date: April 15, 2024 Subjective Patient seen and examined at the bedside. Right lower extremity edema mildly improved. Fluid balance -3.3 L. Patient responding well to IV diuresis. Telemetry reveals atrial flutter in the 80s and 90s. Patient denies palpitations. Review of Systems Review of Systems: All systems reviewed & are unremarkable except as noted in Subjective Physical Exam Constitutional: well nourished; no acute distress Respiratory: normal respiratory effort; no respiratory distress, no labored breathing and no retractions Cardiovascular: Rate/Rhythm: + irregularly irregular Heart Sounds: normal S1 and normal S2; no murmur Vessels: no JVD and no carotid bruit Extremities: + edema (2+ RLE edema. + Erythema) Gastrointestinal (Abdomen): Inspection/Auscultation: normal bowel sounds; abdomen not distended Percussion/Palpation: abdomen soft; abdomen nontender, no guarding and abdomen not rigid Neurologic: CN's II-XI intact bilaterally and moves all extremities; no focal motor deficits Results & Data Vital Signs (Past 12 Hours) Vital Signs Temp Pulse Pulse Resp BP Pulse Ox O2 Del Method 04/19/24 12:07 36.7 C 108 H 18 136/93 96 Room Air 04/19/24 08:00 37.0 C 93 H 18 140/87 96 Room Air 04/19/24 07:24 89 Laboratory Results Cardiac Enzymes 04/19/24 Range/Units 03:28 AST 56 H (13-39) U/L CBC 04/19/24 Range/Units 03:28 WBC 7.37 (4.8-10.8) K/ul RBC 3.95 L (4.70-6.10) M/uL Hgb 11.7 L (14.0-18.0) g/dl Hct 33.6 L (42.0-52.0) % Plt Count 266 (130-400) K/uL Neut # (Auto) 4.40 (1.40-6.50) K/uL Lymph # (Auto) 1.96 (1.20-3.40) K/uL Moody # (Auto) 0.67 H (0.11-0.59) K/uL Eos # (Auto) 0.28 (0.00-0.50) K/uL Baso # (Auto) 0.03 (0.00-0.20) K/uL Comprehensive Metabolic Panel 04/19/24 Range/Units 03:28 Sodium 133 L (136-145) mmol/L Potassium 3.7 (3.5-5.1) mmol/L Chloride 100 (98-107) mmol/L Carbon Dioxide 27 (21-32) mmol/L BUN 13 (6-23) mg/dl Creatinine 0.91 (0.6-1.4) mg/dl Glucose 110 H (70-99(Fasting)) mg/dl Calcium 8.7 (8.6-10.3) mg/dl AST 56 H (13-39) U/L ALT 50 (7-52) U/L Alkaline Phosphatase 182 H (34-104) U/L Total Protein 5.7 L (6.0-8.3) gm/dl Albumin 2.6 L (3.4-5.0) gm/dl Intake and Output 04/19/24 04/19/24 04/19/24 06:59 14:59 22:59 Intake Total 450 / 8778.298 3129 / 1650 Output Total 1600 / 4500 2700 / 2700 Balance -1150 / -2734.799 -1050 / -1050 Intake: IV 200 / 1115.201 810 / 810 Ampicillin 2,000 mg In Sodium 200 / 400 200 / 200 Chlor 0.9% Mini-B 100 ml @ 200 mls/hr IV Q4H REPLACED BY [facility] Rx#:[id number] Heparin Sodium/Dextrose 25,000 500 / 500 units In 500 ml @ 1,600 UNITS/ HR 32 mls/hr IV .[id number] REPLACED BY [facility] Rx #:[id number] Iron Sucrose 200 mg In 0.9 % 110 / 110 Sodium Chloride 100 ml @ 220 mls/hr IV TODAY ONE Rx#: [id number] Oral 250 / 650 840 / 840 Output: Urine 1600 / 4500 2700 / 2700 Other: Weight 85.1 kg Weight Measurement Method Built in [facility] (1) Atrial flutter Atrial flutter type: typical Qualified Code(s): I48.3 - Typical atrial flutter
[2024-04-20 04:48] LABS: Basophils # (auto) 0.03 K/uL (0.00-0.20); Basophils % (auto) 0.4 %; Eosinophils # (auto) 0.29 K/uL (0.00-0.50); Eosinophils % (auto) 3.4 %; Hematocrit (blood only) 34.9 % (42.0-52.0); Hemoglobin 12.2 g/dl (14.0-18.0); Immature Granulocytes # (auto) 0.07 K/uL (0.01-0.20); Immature Granulocytes % (auto) 0.8 %; Lymphocytes # (auto) 2.33 K/uL (1.20-3.40); Lymphocytes % (auto) 27.4 %; Mean Corpuscular Hemoglobin 29.8 pg (25.0-34.0); Mean Corpuscular Volume 85.1 fL (80.0-100.0); Mean Platelet Volume 9.2 fL (9.4-12.4); Monocytes # (auto) 0.88 K/uL (0.11-0.59); Monocytes % (auto) 10.4 %; Neutrophils % (auto) 57.6 %; Platelet Count 342 K/uL (130-400); RDW Coefficient of Variation 13.8 % (11.5-14.5); RDW Standard Deviation 43.4 fL (36.4-46.3)
[2024-04-20 04:56] LABS: Albumin Globulin Ratio 0.8 (0.9-2); Albumin Level 2.6 gm/dl (3.4-5.0); BUN Creatinine Ratio 13.4 (10-20); Calcium 8.7 mg/dl (8.6-10.3); Est GFR (African American) 88.8 ml/min; Est GFR (Non-African American) 76.6 ml/min; Globulin 3.2 gm/dl (2.5-4.0); Magnesium 1.9 mg/dl (1.7-2.4); Phosphorus 3.3 mg/dl (2.5-4.9); Potassium 3.7 mmol/L (3.5-5.1); Total Protein 5.8 gm/dl (6.0-8.3)
[2024-04-20 04:58] LABS: ANTI-Xa, UFH(UnfractionatedHep 0.55 IU/ml (0.3-0.7)
--- NOTE | 2024-04-20 14:20 | Hospitalist Progress Note ---
Date of Service April 20, 2024 Assessment & Plan (1) Cellulitis of leg, right: Plan: Mr. Medina is a 73-year-old male coming from [facility] with past medical history significant for hypertension, hyperlipidemia, history of bipolar disorder, pulmonary fibrosis, pleural plaque admitted for management of cellulitis. Patient noted erythema in the right lower extremity with extending streaks into his groin and very tender in groin region. Patient states it started about 2 to 3 days prior to admission. Sepsis secondary to bacteremia/cellulitis Right leg cellulitis with lymphangiitis Bacteremia Extending into the right groin History of right inguinal hernia repair MRSA negative Doppler negative for DVT CT abd/pelvis with corresponding right inguinal lymphadenopathy Blood cultures with Group G Beta strep Discontinue zosyn Continue Vanc ID consult in setting of lymphangiitis and bacteremia. Recommended/stated the following: - Recommend continuing Vancomycin IV, agree with stopping Zosyn IV. - Recommend waiting until Strep susceptibilities return, when they return please contact ID and will give additional plan - we will not continue to monitor, for additional recommendation please contact ID directly through tiger text or call. Thank you for your consult. Follow sensitivities as advised by ID, will contact once available -switched to IV ampicillin x 2 weeks Continue to monitor Rapid a flutter, New onset EKG on admission noting trial flutter with variable AV block Trop elevated at 28.2 with note peak of 38.5 ECHO with EF of 60-65%, mild LVH, mild TR and mild left atrium dilation. No pulm htn Cardiology consulted, appreciate recs. Recommended/stated the following: -Recommend rate control strategy. -Titrate metoprolol to 25 mg twice daily. -Continue IV anticoagulation with heparin. -Transition to Eliquis prior to discharge. -Consider elective external direct-current cardioversion after 4 weeks of adequate anticoagulation. -Continue telemetry monitoring during hospitalization. -Repeat ECG in AM. -Minimally elevated high-sensitivity troponin secondary to demand ischemia in the setting of rapid atrial flutter and sepsis. -Management of bacteremia/sepsis/cellulitis as per internal medicine. -Consider addition of low-dose diuretic to improve control of right lower extremity edema and significant positive fluid balance since admission. Continue IV heparin po metoprolol tartrate 25mg BID to TID. Switched to met succ 50mg BID Continue to monitor on telemetry Lower extremity edema Started on po lasix 20mg daily per cardiology recs above Monitor Is and Os transitioned to IV Lasix 20mg BID Consider kim placement Elevated troponin Demand ischemia in setting of atrial flutter and sepsis monitor on tele Transaminitis Total bilirubin 0.6\AST 115\ALT 87 Alkaline phosphatase 133 likely in setting of sepsis stable CT Downtrending Anemia, chronic Hgb of 12 currently AM anemia panel noting iron deficiency anemia s/p IV Venofer 1 bag 200mg on 04/19 Continue to monitro Hypomagnesia Replete as needed Hyponatremia Sodium 127 on admission, likely secondary to sepsis and poor po intake Continue IVF for 1 more bag improving Hypophosphatemia On supplements supplement as needed Possible BPH monitor for urinary retention Hyperlipidemia On statin Will hold for elevated LFTs for now, resume when able Hypertension Will hold lisinopril/hydrochlorothiazide, resume when able Closely monitor Diet: HH DVT prophylaxis: IV heparin Dispo: Return to [facility] once medically stable Admission and Anticipated Discharge Date Admission Date: April 15, 2024 Subjective pt was seen laying in bed. Still no bowel movement. Denies palpitations Review of Systems Review of Systems: All systems reviewed & are unremarkable except as noted in Subjective Physical Exam Physical Exam: General: Alert. No acute distress Skin: right lower extremity with noted erythema Psych: Appropriate mood and affect Neuro: difficulty with movements in the bed HEENT: NC/AT CV: RRR Resp: Breath sounds clear bilaterally, no increased effort of breathing Abdomen: Soft, nontender, nondistended Extremities: edema in R lower extremity, right lower extremity with noted erythema Results & Data Results & Data Vital Signs (Past 12 Hours) Vital Signs Temp Pulse Pulse Resp BP Pulse Ox O2 Del Method 04/20/24 13:00 81 04/20/24 11:41 36.6 C 89 18 144/84 H 97 Room Air 04/20/24 07:00 36.8 C 100 H 18 127/74 98 Room Air
[2024-04-20] MEDS ORDERED: MAGNESIUM HYDROXIDE SUSP 30 ML UDC PO PRN (16:34)
[2024-04-20] MEDS: METOPROLOL SUCC 50MG EXT REL TAB PO SCH (20:14)
[2024-04-21 04:48] LABS: Basophils # (auto) 0.06 K/uL (0.00-0.20); Basophils % (auto) 0.6 %; Hematocrit (blood only) 36.4 % (42.0-52.0); Hemoglobin 12.5 g/dl (14.0-18.0); Immature Granulocytes # (auto) 0.17 K/uL (0.01-0.20); Immature Granulocytes % (auto) 1.7 %; Lymphocytes # (auto) 2.95 K/uL (1.20-3.40); Lymphocytes % (auto) 29.4 %; Mean Corpuscular Hgb Conc 34.3 g/dL (32.0-36.0); Mean Corpuscular Volume 87.5 fL (80.0-100.0); Mean Platelet Volume 8.7 fL (9.4-12.4); Monocytes # (auto) 0.85 K/uL (0.11-0.59); Monocytes % (auto) 8.5 %; Neutrophils # (auto) 5.72 K/uL (1.40-6.50); Neutrophils % (auto) 56.8 %; Platelet Count 404 K/uL (130-400); RDW Coefficient of Variation 14.1 % (11.5-14.5); Red Blood Count 4.16 M/uL (4.70-6.10); White Blood Count 10.05 K/ul (4.8-10.8)
[2024-04-21 05:06] LABS: BUN Creatinine Ratio 16.2 (10-20); Calcium 8.5 mg/dl (8.6-10.3); Creatinine Clr Calc Pharmacy 67.6 ml/min; Est GFR (African American) 86.6 ml/min; Est GFR (Non-African American) 74.7 ml/min; Phosphorus 3.1 mg/dl (2.5-4.9); Potassium 3.8 mmol/L (3.5-5.1)
[2024-04-21 05:10] LABS: ANTI-Xa, UFH(UnfractionatedHep 0.55 IU/ml (0.3-0.7)
--- NOTE | 2024-04-21 14:21 | Hospitalist Progress Note ---
Date of Service April 21, 2024 Assessment & Plan (1) Cellulitis of leg, right: Plan: Mr. Medina is a 73-year-old male coming from [facility] with past medical history significant for hypertension, hyperlipidemia, history of bipolar disorder, pulmonary fibrosis, pleural plaque admitted for management of cellulitis. Patient noted erythema in the right lower extremity with extending streaks into his groin and very tender in groin region. Patient states it started about 2 to 3 days prior to admission. Sepsis secondary to bacteremia/cellulitis Right leg cellulitis with lymphangiitis Bacteremia Extending into the right groin History of right inguinal hernia repair MRSA negative Doppler negative for DVT CT abd/pelvis with corresponding right inguinal lymphadenopathy Blood cultures with Group G Beta strep (1/4 bottles) Initially treated with IV vanc and IV Zosyn. Zosyn was then discontinued. ID consult in setting of lymphangiitis and bacteremia. Recommended/stated the following initially: - Recommend continuing Vancomycin IV, agree with stopping Zosyn IV. - Recommend waiting until Strep susceptibilities return, when they return please contact ID and will give additional plan - we will not continue to monitor, for additional recommendation please contact ID directly through tiger text or call. Thank you for your consult. Followed sensitivities as advised by ID, contacted: -IV vancomycin was switched to IV ampicillin x [address] Bowden Continue to monitor Rapid a flutter, New onset EKG on admission noting trial flutter with variable AV block Trop elevated at 28.2 with note peak of 38.5 ECHO with EF of 60-65%, mild LVH, mild TR and mild left atrium dilation. No pulm htn Cardiology consulted, appreciate recs. Recommended/stated the following: -Recommend rate control strategy. -Titrate metoprolol to 25 mg twice daily. -Continue IV anticoagulation with heparin. -Transition to Eliquis prior to discharge. -Consider elective external direct-current cardioversion after 4 weeks of adequate anticoagulation. -Continue telemetry monitoring during hospitalization. -Repeat ECG in AM. -Minimally elevated high-sensitivity troponin secondary to demand ischemia in the setting of rapid atrial flutter and sepsis. -Management of bacteremia/sepsis/cellulitis as per internal medicine. -Consider addition of low-dose diuretic to improve control of right lower extremity edema and significant positive fluid balance since admission. Continue IV heparin po metoprolol tartrate 25mg BID to TID. Switched to met succ 50mg BID Continue to monitor on telemetry Lower extremity edema Started on po lasix 20mg daily per cardiology recs above Monitor Is and Os transitioned to IV Lasix 20mg BID Consider kim placement Elevated troponin Demand ischemia in setting of atrial flutter and sepsis monitor on tele Transaminitis Total bilirubin 0.6\AST 115\ALT 87 Alkaline phosphatase 133 likely in setting of sepsis stable CT Downtrending Anemia, chronic Hgb of 12 currently AM anemia panel noting iron deficiency anemia s/p IV Venofer 1 bag 200mg on 04/19 Continue to monitro Hypomagnesia Replete as needed Hyponatremia Sodium 127 on admission, likely secondary to sepsis and poor po intake Continue IVF for 1 more bag improving Hypophosphatemia On supplements supplement as needed Possible BPH monitor for urinary retention Hyperlipidemia On statin Will hold for elevated LFTs for now, resume when able Hypertension Will hold lisinopril/hydrochlorothiazide, resume when able Closely monitor Diet: HH DVT prophylaxis: IV heparin [facility] Admission and Anticipated Discharge Date Admission Date: April 15, 2024 Subjective pt was seen laying in bed. Had a bowel movement. Denies palpitations Review of Systems Review of Systems: All systems reviewed & are unremarkable except as noted in Subjective Physical Exam Physical Exam: General: Alert. No acute distress Skin: right lower extremity with noted erythema Psych: Appropriate mood and affect Neuro: difficulty with movements in the bed HEENT: NC/AT CV: Irregular Resp: Breath sounds clear bilaterally, no increased effort of breathing Abdomen: Soft, nontender, nondistended Extremities: edema in R lower extremity, right lower extremity with noted erythema Results & Data Results & Data Vital Signs (Past 12 Hours) Vital Signs Temp Pulse Pulse Resp BP Pulse Ox O2 Del Method 04/21/24 14:00 89 04/21/24 11:18 36.7 C 102 H 18 147/99 H 99 Room Air 04/21/24 07:43 36.8 C 91 H 18 151/78 H 94 Room Air 04/21/24 06:00 72 04/21/24 04:24 36.9 C 84 18 162/91 H 97 Room Air 04/21/24 03:00 Room Air
[2024-04-22 07:36] LABS: Basophils # (auto) 0.06 K/uL (0.00-0.20); Basophils % (auto) 0.7 %; Eosinophils # (auto) 0.25 K/uL (0.00-0.50); Eosinophils % (auto) 2.9 %; Hematocrit (blood only) 35.3 % (42.0-52.0); Hemoglobin 12.1 g/dl (14.0-18.0); Immature Granulocytes # (auto) 0.19 K/uL (0.01-0.20); Immature Granulocytes % (auto) 2.2 %; Lymphocytes # (auto) 2.62 K/uL (1.20-3.40); Mean Corpuscular Hemoglobin 29.8 pg (25.0-34.0); Mean Corpuscular Hgb Conc 34.3 g/dL (32.0-36.0); Mean Corpuscular Volume 86.9 fL (80.0-100.0); Mean Platelet Volume 8.7 fL (9.4-12.4); Monocytes # (auto) 0.72 K/uL (0.11-0.59); Monocytes % (auto) 8.3 %; Neutrophils # (auto) 4.88 K/uL (1.40-6.50); Neutrophils % (auto) 55.9 %; Platelet Count 459 K/uL (130-400); RDW Coefficient of Variation 14.5 % (11.5-14.5); Red Blood Count 4.06 M/uL (4.70-6.10); White Blood Count 8.72 K/ul (4.8-10.8)
[2024-04-22 07:55] LABS: Albumin Globulin Ratio 0.8 (0.9-2); Albumin Level 2.8 gm/dl (3.4-5.0); BUN Creatinine Ratio 19.4 (10-20); Bilirubin,Total 0.6 mg/dl (0.2-1.0); Calcium 8.4 mg/dl (8.6-10.3); Creatinine Clr Calc Pharmacy 68.3 ml/min; Est GFR (African American) 87.7 ml/min; Est GFR (Non-African American) 75.6 ml/min; Globulin 3.3 gm/dl (2.5-4.0); Magnesium 2.1 mg/dl (1.7-2.4); Potassium 3.8 mmol/L (3.5-5.1); Total Protein 6.1 gm/dl (6.0-8.3)
[2024-04-22 08:02] LABS: ANTI-Xa, UFH(UnfractionatedHep 0.62 IU/ml (0.3-0.7)
--- NOTE | 2024-04-22 09:24 | Hospitalist Progress Note ---
Date of Service April 22, 2024 Assessment & Plan (1) Cellulitis of leg, right: Plan: Mr. Medina is a 73-year-old male coming from [facility] with past medical history significant for hypertension, hyperlipidemia, history of bipolar disorder, pulmonary fibrosis, pleural plaque admitted for management of cellulitis. Patient noted erythema in the right lower extremity with extending streaks into his groin and very tender in groin region. Patient states it started about 2 to 3 days prior to admission. Sepsis secondary to bacteremia/cellulitis Right leg cellulitis with lymphangiitis Bacteremia Extending into the right groin History of right inguinal hernia repair MRSA negative Doppler negative for DVT CT abd/pelvis with corresponding right inguinal lymphadenopathy Blood cultures with Group G Beta strep (1/4 bottles) Initially treated with IV vanc and IV Zosyn. Zosyn was then discontinued. ID consult in setting of lymphangiitis and bacteremia. Recommended/stated the following initially: - Recommend continuing Vancomycin IV, agree with stopping Zosyn IV. - Recommend waiting until Strep susceptibilities return, when they return please contact ID and will give additional plan - we will not continue to monitor, for additional recommendation please contact ID directly through tiger text or call. Thank you for your consult. Followed sensitivities as advised by ID, contacted: -IV vancomycin was switched to IV ampicillin x [address] Bowden Continue to monitor Rapid a flutter, New onset EKG on admission noting trial flutter with variable AV block Trop elevated at 28.2 with note peak of 38.5 ECHO with EF of 60-65%, mild LVH, mild TR and mild left atrium dilation. No pulm htn Cardiology consulted, appreciate recs. Recommended/stated the following: -Recommend rate control strategy. -Titrate metoprolol to 25 mg twice daily. -Continue IV anticoagulation with heparin. -Transition to Eliquis prior to discharge. -Consider elective external direct-current cardioversion after 4 weeks of adequate anticoagulation. -Continue telemetry monitoring during hospitalization. -Repeat ECG in AM. -Minimally elevated high-sensitivity troponin secondary to demand ischemia in the setting of rapid atrial flutter and sepsis. -Management of bacteremia/sepsis/cellulitis as per internal medicine. -Consider addition of low-dose diuretic to improve control of right lower extremity edema and significant positive fluid balance since admission. treated with IV heparin, transitioned to po Eliquis on 04/22 po metoprolol tartrate 25mg BID to TID. Switched to met succ 50mg BID Continue to monitor on telemetry Lower extremity edema Started on po lasix 20mg daily per cardiology recs above Monitor Is and Os transitioned to IV Lasix 20mg BID Consider kim placement Elevated troponin Demand ischemia in setting of atrial flutter and sepsis monitor on tele Transaminitis Total bilirubin 0.6\AST 115\ALT 87 Alkaline phosphatase 133 likely in setting of sepsis stable CT Downtrending Anemia, chronic Hgb of 12 currently AM anemia panel noting iron deficiency anemia s/p IV Venofer 1 bag 200mg on 04/19 Continue to monitor Hypomagnesia Replete as needed Hyponatremia Sodium 127 on admission, likely secondary to sepsis and poor po intake Continue IVF for 1 more bag improving Hypophosphatemia On supplements supplement as needed Possible BPH monitor for urinary retention Hyperlipidemia On statin Will hold for elevated LFTs for now, resume when able Hypertension Will hold lisinopril/hydrochlorothiazide, resume when able Closely monitor Diet: HH DVT prophylaxis: IV heparin Dispo: Return to group home once medically stable Admission and Anticipated Discharge Date Admission Date: April 15, 2024 Subjective converted to sinus rhythm otherwise denies acute concerns Review of Systems Review of Systems: All systems reviewed & are unremarkable except as noted in Subjective Physical Exam Physical Exam: General: Alert. No acute distress Skin: right lower extremity with noted erythema Psych: Appropriate mood and affect Neuro: difficulty with movements in the bed HEENT: NC/AT CV: Irregular Resp: Breath sounds clear bilaterally, no increased effort of breathing Abdomen: Soft, nontender, nondistended Extremities: edema in R lower extremity, right lower extremity with noted erythema Results & Data Results & Data Vital Signs (Past 12 Hours) Vital Signs Temp Pulse Resp BP Pulse Ox O2 Del Method 04/22/24 08:21 36.9 C 70 18 149/82 H 97 Room Air 04/22/24 04:02 36.7 C 72 18 147/82 H 94 Room Air 04/21/24 22:36 36.9 C 18 129/73 95 Room Air
[2024-04-22] MEDS: APIXABAN 5 MG TABLET PO SCH (10:11)
[2024-04-23 06:15] LABS: Basophils # (auto) 0.06 K/uL (0.00-0.20); Basophils % (auto) 0.9 %; Eosinophils # (auto) 0.22 K/uL (0.00-0.50); Eosinophils % (auto) 3.4 %; Hematocrit (blood only) 36.8 % (42.0-52.0); Hemoglobin 12.2 g/dl (14.0-18.0); Immature Granulocytes # (auto) 0.12 K/uL (0.01-0.20); Immature Granulocytes % (auto) 1.8 %; Lymphocytes # (auto) 2.08 K/uL (1.20-3.40); Mean Corpuscular Hemoglobin 29.4 pg (25.0-34.0); Mean Corpuscular Hgb Conc 33.2 g/dL (32.0-36.0); Mean Corpuscular Volume 88.7 fL (80.0-100.0); Mean Platelet Volume 8.7 fL (9.4-12.4); Monocytes # (auto) 0.66 K/uL (0.11-0.59); Monocytes % (auto) 10.2 %; Neutrophils # (auto) 3.35 K/uL (1.40-6.50); Neutrophils % (auto) 51.7 %; Platelet Count 511 K/uL (130-400); RDW Coefficient of Variation 14.7 % (11.5-14.5); RDW Standard Deviation 47.2 fL (36.4-46.3); Red Blood Count 4.15 M/uL (4.70-6.10); White Blood Count 6.49 K/ul (4.8-10.8)
[2024-04-23 06:22] LABS: Albumin Globulin Ratio 0.9 (0.9-2); Albumin Level 2.9 gm/dl (3.4-5.0); BUN Creatinine Ratio 18.7 (10-20); Bilirubin,Total 0.5 mg/dl (0.2-1.0); Calcium 8.6 mg/dl (8.6-10.3); Creatinine Clr Calc Pharmacy 62.5 ml/min; Est GFR (African American) 78.8 ml/min; Globulin 3.3 gm/dl (2.5-4.0); Magnesium 2.4 mg/dl (1.7-2.4); Phosphorus 3.7 mg/dl (2.5-4.9); Potassium 4.3 mmol/L (3.5-5.1); Total Protein 6.2 gm/dl (6.0-8.3)
[2024-04-23 06:27] LABS: ANTI-Xa, UFH(UnfractionatedHep 0.46 IU/ml (0.3-0.7)
--- NOTE | 2024-04-23 09:53 | Hospitalist Progress Note ---
Date of Service April 23, 2024 Assessment & Plan (1) Cellulitis of leg, right: Plan: Mr. Medina is a 73-year-old male coming from [facility] with past medical history significant for hypertension, hyperlipidemia, history of bipolar disorder, pulmonary fibrosis, pleural plaque admitted for management of cellulitis. Patient noted erythema in the right lower extremity with extending streaks into his groin and very tender in groin region. Patient states it started about 2 to 3 days prior to admission. Sepsis secondary to bacteremia/cellulitis Right leg cellulitis with lymphangiitis Bacteremia Extending into the right groin History of right inguinal hernia repair MRSA negative Doppler negative for DVT CT abd/pelvis with corresponding right inguinal lymphadenopathy Blood cultures with Group G Beta strep (1/4 bottles) Initially treated with IV vanc and IV Zosyn. Zosyn was then discontinued. ID consult in setting of lymphangiitis and bacteremia. Recommended/stated the following initially: - Recommend continuing Vancomycin IV, agree with stopping Zosyn IV. - Recommend waiting until Strep susceptibilities return, when they return please contact ID and will give additional plan - we will not continue to monitor, for additional recommendation please contact ID directly through tiger text or call. Thank you for your consult. Followed sensitivities as advised by ID, contacted: -IV vancomycin was switched to IV ampicillin x [address] Bowden Continue to monitor 04/23- [facility] and updated that pt stable for discharge. requesting an additional day to get IV Ampicillin ordered and in stock for pt. Rapid a flutter, New onset EKG on admission noting trial flutter with variable AV block Trop elevated at 28.2 with note peak of 38.5 ECHO with EF of 60-65%, mild LVH, mild TR and mild left atrium dilation. No pulm htn Cardiology consulted, appreciate recs. Recommended/stated the following: -Recommend rate control strategy. -Titrate metoprolol to 25 mg twice daily. -Continue IV anticoagulation with heparin. -Transition to Eliquis prior to discharge. -Consider elective external direct-current cardioversion after 4 weeks of adequate anticoagulation. -Continue telemetry monitoring during hospitalization. -Repeat ECG in AM. -Minimally elevated high-sensitivity troponin secondary to demand ischemia in the setting of rapid atrial flutter and sepsis. -Management of bacteremia/sepsis/cellulitis as per internal medicine. -Consider addition of low-dose diuretic to improve control of right lower extremity edema and significant positive fluid balance since admission. treated with IV heparin, transitioned to po Eliquis on 04/22 po metoprolol tartrate 25mg BID to TID. Switched to met succ 50mg BID. Converted to sinus rhythm Continue to monitor on telemetry Lower extremity edema Started on po lasix 20mg daily per cardiology recs above Monitor Is and Os transitioned to IV Lasix 20mg BID -transition back to po lasix 20mg on 04/24, marked improvement in swelling Electrolytes and kidney function stable Consider kim placement Elevated troponin Demand ischemia in setting of atrial flutter and sepsis monitor on tele Transaminitis Total bilirubin 0.6\AST 115\ALT 87 Alkaline phosphatase 133 likely in setting of sepsis stable CT Downtrending Anemia, chronic Hgb of 12 currently AM anemia panel noting iron deficiency anemia s/p IV Venofer 1 bag 200mg on 04/19 Continue to monitor Hypomagnesia Replete as needed Hyponatremia Sodium 127 on admission, likely secondary to sepsis and poor po intake Continue IVF for 1 more bag improving Hypophosphatemia On supplements supplement as needed Possible BPH monitor for urinary retention Hyperlipidemia On statin Will hold for elevated LFTs for now, resume when able Hypertension Will hold lisinopril/hydrochlorothiazide, resume when able Closely monitor Diet: HH DVT prophylaxis: IV heparin Dispo: [facility] to [facility] once medically stable Admission and Anticipated Discharge Date Admission Date: April 15, 2024 Subjective denies acute concerns No events overnight Review of Systems Review of Systems: All systems reviewed & are unremarkable except as noted in Subjective Physical Exam Physical Exam: General: Alert. No acute distress Skin: right lower extremity with noted erythema Psych: Appropriate mood and affect Neuro: difficulty with movements in the bed HEENT: NC/AT CV: RRR Resp: Breath sounds clear bilaterally, no increased effort of breathing Abdomen: Soft, nontender, nondistended Extremities: improved edema in R lower extremity, improved right lower extremity erythema Results & Data Results & Data Vital Signs (Past 12 Hours) Vital Signs Temp Pulse Resp BP Pulse Ox O2 Del Method 04/23/24 07:34 36.6 C 69 18 146/79 H 95 Room Air 04/23/24 02:55 36.7 C 68 18 147/84 H 95 Room Air 04/22/24 22:42 36.9 C 76 18 145/83 H 96 Room Air 04/22/24 21:53 Room Air
[2024-04-24] MEDS: FUROSEMIDE 20 MG TAB PO SCH (08:03)
[2024-04-24 10:09] LABS: Basophils # (auto) 0.05 K/uL (0.00-0.20); Basophils % (auto) 0.8 %; Eosinophils # (auto) 0.12 K/uL (0.00-0.50); Hematocrit (blood only) 38.3 % (42.0-52.0); Hemoglobin 12.4 g/dl (14.0-18.0); Immature Granulocytes # (auto) 0.09 K/uL (0.01-0.20); Immature Granulocytes % (auto) 1.5 %; Lymphocytes # (auto) 1.59 K/uL (1.20-3.40); Lymphocytes % (auto) 26.6 %; Mean Corpuscular Hemoglobin 29.7 pg (25.0-34.0); Mean Corpuscular Hgb Conc 32.4 g/dL (32.0-36.0); Mean Corpuscular Volume 91.8 fL (80.0-100.0); Mean Platelet Volume 8.4 fL (9.4-12.4); Monocytes # (auto) 0.49 K/uL (0.11-0.59); Monocytes % (auto) 8.2 %; Neutrophils # (auto) 3.63 K/uL (1.40-6.50); Neutrophils % (auto) 60.9 %; Platelet Count 522 K/uL (130-400); RDW Coefficient of Variation 15.2 % (11.5-14.5); RDW Standard Deviation 50.4 fL (36.4-46.3); Red Blood Count 4.17 M/uL (4.70-6.10); White Blood Count 5.97 K/ul (4.8-10.8)
[2024-04-24 10:22] LABS: Albumin Globulin Ratio 0.9 (0.9-2); BUN Creatinine Ratio 21.6 (10-20); Bilirubin,Total 0.6 mg/dl (0.2-1.0); Calcium 8.6 mg/dl (8.6-10.3); Creatinine Clr Calc Pharmacy 65.6 ml/min; Est GFR (African American) 83.5 ml/min; Est GFR (Non-African American) 72.1 ml/min; Globulin 3.4 gm/dl (2.5-4.0); Magnesium 2.3 mg/dl (1.7-2.4); Phosphorus 3.1 mg/dl (2.5-4.9); Potassium 4.1 mmol/L (3.5-5.1); Total Protein 6.4 gm/dl (6.0-8.3)
[2024-04-24 10:30] LABS: ANTI-Xa, UFH(UnfractionatedHep 0.35 IU/ml (0.3-0.7)
--- NOTE | 2024-04-24 16:05 | Hospitalist Progress Note ---
Date of Service April 24, 2024 Assessment & Plan (1) Cellulitis of leg, right: Plan: Mr. Medina is a 73-year-old male coming from [facility] with past medical history significant for hypertension, hyperlipidemia, history of bipolar disorder, pulmonary fibrosis, pleural plaque admitted for management of cellulitis. Patient noted erythema in the right lower extremity with extending streaks into his groin and very tender in groin region. Patient states it started about 2 to 3 days prior to admission. #Sepsis secondary to bacteremia/cellulitis *resolving #Right leg cellulitis with lymphangiitis #Bacteremia Extending into the right groin History of right inguinal hernia repair MRSA negative Doppler negative for DVT CT abd/pelvis with corresponding right inguinal lymphadenopathy Blood cultures with Group G Beta strep (1/4 bottles) Initially treated with IV vanc and IV Zosyn. Zosyn was then discontinued. ID consult in setting of lymphangiitis and bacteremia. Recommended/stated the following initially: - Recommend continuing Vancomycin IV, agree with stopping Zosyn IV. - Recommend waiting until Strep susceptibilities return, when they return please contact ID and will give additional plan - we will not continue to monitor, for additional recommendation please contact ID directly through tiger text or call. Thank you for your consult. Followed sensitivities as advised by ID, contacted: -IV vancomycin was switched to IV ampicillin x [address] Bowden Continue to monitor 04/23- [facility] called and updated that pt stable for discharge. requesting an additional day to get IV Ampicillin ordered and in stock for pt. 04/24- Called [facility]--request not completed, resubmitted IV abx for patient for EOT 05/01 US guided IV placed #Rapid a flutter, New onset *resolved EKG on admission noting trial flutter with variable AV block Trop elevated at 28.2 with note peak of 38.5 ECHO with EF of 60-65%, mild LVH, mild TR and mild left atrium dilation. No pulm htn Cardiology consulted, appreciate recs. Recommended/stated the following: treated with IV heparin, transitioned to po Eliquis on 04/22 Continue met succ 50mg BID. Converted to sinus rhythm Continue to monitor on telemetry #Lower extremity edema Started on po lasix 20mg daily per cardiology recs above Monitor Is and Os transitioned to IV Lasix 20mg BID -transition back to po lasix 20mg on 04/24, marked improvement in swelling Electrolytes and kidney function stable #Elevated troponin 2/2 Demand ischemia in setting of atrial flutter and sepsis monitor on tele #Transaminitis Total bilirubin 0.6\AST 115\ALT 87 Alkaline phosphatase 133 likely in setting of sepsis stable CT Downtrending #Anemia, chronic Hgb of 12 currently AM anemia panel noting iron deficiency anemia s/p IV Venofer 1 bag 200mg on 04/19 Continue to monitor #Hypomagnesia Replete as needed #Hyponatremia Sodium 127 on admission, likely secondary to sepsis and poor po intake Continue IVF for 1 more bag improving #Hypophosphatemia On supplements supplement as needed #Possible BPH monitor for urinary retention #Hyperlipidemia On statin Will hold for elevated LFTs for now, resume when able #Hypertension Will hold lisinopril/hydrochlorothiazide Closely monitor Diet: HH DVT prophylaxis: eliquis Dispo: Return to [facility] once medically stable--likely tomorrow once Institution confirms abx Admission and Anticipated Discharge Date Admission Date: April 15, 2024 Subjective NAEO Denies any new concerns Reports feeling much better Physical Exam Constitutional: WD/WN, vitals as above Respiratory: normal respiratory effort, lungs clear to auscultation Cardiovascular: RRR, no murmur, no edema Results & Data Results & Data Vital Signs (Past 12 Hours) Vital Signs Temp Pulse Pulse Resp BP Pulse Ox O2 Del Method 04/24/24 15:31 36.5 C 73 19 133/73 97 Room Air 04/24/24 12:23 56 L 04/24/24 10:56 36.7 C 58 L 19 128/72 96 Room Air 04/24/24 07:58 36.7 C 70 17 115/68 97 Room Air Laboratory Results Short CBC 04/24/24 Range/Units 09:41 WBC 5.97 (4.8-10.8) K/ul Hgb 12.4 L (14.0-18.0) g/dl Hct 38.3 L (42.0-52.0) % Plt Count 522 H (130-400) K/uL BMP 04/24/24 09:41 Sodium 136 Potassium 4.1 Chloride 102 Carbon Dioxide 32 BUN 22 Creatinine 1.02 Glucose 99 Calcium 8.6 Liver Function 04/24/24 Range/Units 09:41 Total Bilirubin 0.6 (0.2-1.0) mg/dl AST 44 H (13-39) U/L ALT 62 H (7-52) U/L Alkaline Phosphatase 251 H (34-104) U/L Albumin 3.0 L (3.4-5.0) gm/dl Medications Administered Home Medications Medication Instructions Recorded Confirmed Last Taken albuterol sulfate 90 mcg/actuation 2 puff inhalation QID PRN 04/15/24 04/15/24 Unknown aerosol inhaler Shortness Of Breath Or Wheezing aspirin 81 mg tablet,delayed 81 mg PO DAILY 04/15/24 04/15/24 Unknown release atorvastatin 40 mg tablet 40 mg PO DAILY 04/15/24 04/15/24 Unknown lisinopril 20 1 tab PO DAILY 04/15/24 04/15/24 Unknown mg-hydrochlorothiazide 25 mg tablet apixaban 5 mg tablet (Eliquis) 5 mg PO BID #60 tabs 04/24/24 Unknown docusate sodium 100 mg capsule 100 mg PO BID #60 caps 04/24/24 Unknown furosemide 20 mg tablet 20 mg PO QAM #30 tabs 04/24/24 Unknown metoprolol succinate 50 mg 50 mg PO BID #60 tabs 04/24/24 Unknown tablet,extended release 24 hr Active Medications Generic Name Dose Route Start Last Admin Trade Name Freq PRN Reason Stop Dose Admin Acetaminophen 650 mg 04/15/24 23:44 04/18/24 07:48 Acetaminophen 325 Mg Tab PO 05/15/24 23:43 650 mg Q4H PRN Administration Pain or Fever Apixaban 5 mg 04/22/24 09:30 04/24/24 08:03 Apixaban 5 Mg Tablet PO 05/22/24 09:29 5 mg BID OTLIIA Administration Aspirin 81 mg 04/16/24 09:00 04/24/24 08:03 Aspirin 81 Mg Ectab PO 05/16/24 08:59 81 mg DAILY OTILIA Administration Docusate Sodium 100 mg 04/19/24 11:30 04/24/24 08:05 Docusate Sodium 100 Mg Cap PO 05/19/24 11:29 100 mg BID OTILIA Administration Furosemide 20 mg 04/24/24 09:00 04/24/24 08:03 Furosemide 20 Mg Tab PO 05/24/24 08:59 20 mg QAM OTILIA Administration Ampicillin Sodium 2,000 mg/ 100 mls @ 200 mls/hr 04/18/24 16:00 04/24/24 12:26 Sodium Chloride IV 04/30/24 15:59 Infused Q4H OTILIA Infusion Menthol 1 shira 04/17/24 05:54 04/17/24 06:38 Cough Drop (Sugar Free) Shira 24 Shira/1 Box BUCCAL 05/17/24 05:53 1 shira TID PRN Administration Sore Throat Metoprolol Succinate 50 mg 04/20/24 21:00 04/24/24 08:04 Metoprolol Succ 50mg Ext Rel Tab PO 05/20/24 21:59 50 mg BID OTILIA Administration Potassium Phosphate 2 tab 04/18/24 13:00 04/24/24 12:27 Pot Phosphate Monobasic W/ Sod Tab PO 05/18/24 12:59 2 tab QID OTILIA Administration
[2024-04-25 07:54] LABS: Hematocrit (blood only) 39.6 % (42.0-52.0); Hemoglobin 12.8 g/dl (14.0-18.0); Mean Corpuscular Hemoglobin 29.6 pg (25.0-34.0); Mean Corpuscular Hgb Conc 32.3 g/dL (32.0-36.0); Mean Corpuscular Volume 91.7 fL (80.0-100.0); Mean Platelet Volume 8.5 fL (9.4-12.4); Platelet Count 567 K/uL (130-400); RDW Coefficient of Variation 14.9 % (11.5-14.5); RDW Standard Deviation 49.4 fL (36.4-46.3); Red Blood Count 4.32 M/uL (4.70-6.10); White Blood Count 6.41 K/ul (4.8-10.8)
[2024-04-25 08:09] LABS: Albumin Globulin Ratio 0.9 (0.9-2); BUN Creatinine Ratio 22.6 (10-20); Bilirubin,Total 0.6 mg/dl (0.2-1.0); Calcium 8.4 mg/dl (8.6-10.3); Creatinine Clr Calc Pharmacy 79.7 ml/min; Est GFR (Non-African American) 86.3 ml/min; Globulin 3.4 gm/dl (2.5-4.0); Magnesium 2.3 mg/dl (1.7-2.4); Phosphorus 2.9 mg/dl (2.5-4.9); Potassium 4.1 mmol/L (3.5-5.1); Total Protein 6.4 gm/dl (6.0-8.3)
--- NOTE | 2024-04-25 17:11 | Hospitalist Progress Note ---
Date of Service April 25, 2024 Assessment & Plan (1) Cellulitis of leg, right: Plan: Mr. Medina is a 73-year-old male coming from [facility] with past medical history significant for hypertension, hyperlipidemia, history of bipolar disorder, pulmonary fibrosis, pleural plaque admitted for management of cellulitis. Patient noted erythema in the right lower extremity with extending streaks into his groin and very tender in groin region. Patient states it started about 2 to 3 days prior to admission. #Sepsis secondary to bacteremia/cellulitis *resolving #Right leg cellulitis with lymphangiitis #Bacteremia Extending into the right groin History of right inguinal hernia repair MRSA negative Doppler negative for DVT CT abd/pelvis with corresponding right inguinal lymphadenopathy Blood cultures with Group G Beta strep (1/4 bottles) Initially treated with IV vanc and IV Zosyn. Zosyn was then discontinued. ID consult in setting of lymphangiitis and bacteremia. Recommended/stated the following initially: - Recommend continuing Vancomycin IV, agree with stopping Zosyn IV. - Recommend waiting until Strep susceptibilities return, when they return please contact ID and will give additional plan - we will not continue to monitor, for additional recommendation please contact ID directly through tiger text or call. Thank you for your consult. Followed sensitivities as advised by ID, contacted: -IV vancomycin was switched to IV ampicillin x [address] Bowden Continue to monitor 04/23- [facility] called and updated that pt stable for discharge. requesting an additional day to get IV Ampicillin ordered and in stock for pt. 04/24- Called [facility]--request not completed, resubmitted IV abx for patient for EOT 05/01 US guided IV placed #Rapid a flutter, New onset *resolved EKG on admission noting trial flutter with variable AV block Trop elevated at 28.2 with note peak of 38.5 ECHO with EF of 60-65%, mild LVH, mild TR and mild left atrium dilation. No pulm htn Cardiology consulted, appreciate recs. Recommended/stated the following: treated with IV heparin, transitioned to po Eliquis on 04/22 Continue met succ 50mg BID. Converted to sinus rhythm Continue to monitor on telemetry #Lower extremity edema Started on po lasix 20mg daily per cardiology recs above Monitor Is and Os transitioned to IV Lasix 20mg BID -transition back to po lasix 20mg on 04/24, marked improvement in swelling Electrolytes and kidney function stable #Elevated troponin 2/2 Demand ischemia in setting of atrial flutter and sepsis monitor on tele #Transaminitis Total bilirubin 0.6\AST 115\ALT 87 Alkaline phosphatase 133 likely in setting of sepsis stable CT Downtrending #Anemia, chronic Hgb of 12 currently AM anemia panel noting iron deficiency anemia s/p IV Venofer 1 bag 200mg on 04/19 Continue to monitor #Hypomagnesia Replete as needed #Hyponatremia Sodium 127 on admission, likely secondary to sepsis and poor po intake Continue IVF for 1 more bag improving #Hypophosphatemia On supplements supplement as needed #Possible BPH monitor for urinary retention #Hyperlipidemia On statin Will hold for elevated LFTs for now, resume when able #Hypertension Will hold lisinopril/hydrochlorothiazide Closely monitor Diet: HH DVT prophylaxis: eliquis [facility]--likely tomorrow once Institution confirms abx... Admission and Anticipated Discharge Date Admission Date: April 15, 2024 Subjective NAEO Denies any new concerns [facility] will not have medication until late this evening, will discharge in am Physical Exam Constitutional: WD/WN, vitals as above Respiratory: normal respiratory effort, lungs clear to auscultation Cardiovascular: RRR, no murmur, no edema Skin: near resolution of erythema on RLE Results & Data Results & Data Vital Signs (Past 12 Hours) Vital Signs Temp Pulse Pulse Resp BP Pulse Ox O2 Del Method 04/25/24 16:22 62 04/25/24 16:21 69 04/25/24 15:12 36.7 C 62 19 144/72 H 96 Room Air 04/25/24 10:59 36.7 C 59 L 19 136/70 96 Room Air 04/25/24 07:15 36.7 C 63 19 153/74 H 96 Room Air
[2024-04-26] MEDS: lisinopril 10 MG TAB PO SCH (10:16)
--- NOTE | 2024-04-26 10:51 | Discharge Summary ---
Discharge Summary Date of Service April 26, 2024 Principal Dx & Hospital Course #1 = Principal Diagnosis (1) Cellulitis of leg, right: Mr. Medina is a 73-year-old male coming from [facility] with past medical history significant for hypertension, hyperlipidemia, history of bipolar disorder, pulmonary fibrosis, pleural plaque admitted for management of cellulitis. Patient noted erythema in the right lower extremity with extending streaks into his groin and very tender in groin region. Patient states it started about 2 to 3 days prior to admission. The erythema and swelling improved with IV abx and diuersis. Patient was noted to be in a flutter on admission and converted to normal sinus. Patient started on DOAC and BB therapy. Course prolonged due to inability for pharmacy at institution to acquire antibiotics. Patient discharged to [facility] with US guided IV for ampcillin to continue until 05/01. #Sepsis secondary to bacteremia/cellulitis *resolving #Right leg cellulitis with lymphangiitis #Bacteremia Extending into the right groin History of right inguinal hernia repair MRSA negative Doppler negative for DVT CT abd/pelvis with corresponding right inguinal lymphadenopathy Blood cultures with Group G Beta strep (1/4 bottles) Initially treated with IV vanc and IV Zosyn. Zosyn was then discontinued. ID consult in setting of lymphangiitis and bacteremia. Recommended/stated the following initially: Followed sensitivities as advised by ID, contacted: -IV vancomycin was switched to IV ampicillin x [address] Bowden 04/23- [facility] called and updated that pt stable for discharge. requesting an add it day to get IV Ampicillin ordered and in stock for pt. 04/24- Called [facility]--request not completed, resubmitted IV abx for patient for EOT 05/01, US guided IV placed Ampicillin arrived at institution #Rapid a flutter, New onset *resolved EKG on admission noting trial flutter with variable AV block Trop elevated at 28.2 with note peak of 38.5 ECHO with EF of 60-65%, mild LVH, mild TR and mild left atrium dilation. No pulm htn Converted to sinus rhythm Cardiology consulted, appreciate recs. Recommended/stated the following: treated with IV heparin, transitioned to po Eliquis on 04/22 Continue met succ 50mg BID. #Lower extremity edema Started on po lasix 20mg daily #Elevated troponin 2/2 Demand ischemia resolved #Transaminitis Total bilirubin 0.6\AST 115\ALT 87 Alkaline phosphatase 133 likely in setting of sepsis stable CT Downtrending #Anemia, chronic Hgb of 12 currently AM anemia panel noting iron deficiency anemia s/p IV Venofer 1 bag 200mg on 04/19 Continue to monitor #Hypomagnesia Replete as needed #Hyponatremia Sodium 127 on admission, likely secondary to sepsis and poor po intake Continue IVF for 1 more bag d/c hctz #Hypophosphatemia On supplements supplement as needed #Possible BPH monitor for urinary retention #Hyperlipidemia resumed statin #Hypertension Will hold lisinopril/hydrochlorothiazide Started on lisinopril 20mg and d/c hctz Notes For Next Care Provider Medication Changes From Visit Eliquis 5mg BID Metoprolol XL 50mg BID Lisinopril 20mg daily Discontinue lisinopril-hctz combo Furosemide 20mg daily Ampicillin 2g q4 h EOT 04/30 Admission HPI Per Admitting Provider 73-year-old male [facility] from [facility] with past medical history significant for hypertension, hyperlipidemia, history of bipolar disorder, pulmonary fibrosis, pleural plaque comes with erythema in the right lower extremity extending streak-like into his groin and very tender in groin region and patient states it started about 2 to 3 days ago. Denies any fevers. Ambulates with cane. Denies headache. Denies neck pain. Says he has some back pain. Denies any chest pain. Denies abdominal pain. Denies shortness of breath. Has some dry cough. No runny nose. Says food was not good and he had episode of vomiting. Normal bowel movements. States he is micturating in small amounts. Requesting for acid reflux medication and states he takes it regularly. Past medical history. As mentioned above Past surgical history. History of splenectomy. Right inguinal hernia repair. Social history. Denies smoking. Currently living at present Family history. Patient seems not remembering his family history Admission Exam Per Admitting Provider General- Not in distress. Head- atraumatic Eyes- PERRL. ENT- oropharynx clear Neck- supple, no JVD. Lungs- clear to auscultation no wheezing or crackles Heart- regular rhythm; no murmur, no gallop. Abdomen- normal bowel sounds, soft, swelling, erythema and tenderness in right groin region. Extremities- Right lower extremity erythematous streak like extending from groin to ankle region mostly medial aspect Neuro- alert, oriented ; PERRL no facial palsy; no dysarthria; moves extremities Discharge Exam Constitutional WD/WN, vitals as above Respiratory normal respiratory effort, lungs clear to auscultation Cardiovascular RRR, no murmur, no edema Gastrointestinal (Abdomen) normal bowel sounds, soft, nontender, no hepatosplenomegaly Skin slight edema around right ankle. however, noted resolution of erythema and streaking on leg with small residual area near ankle Updated Medication List Medication Instructions Recorded Confirmed Type albuterol sulfate 90 mcg/actuation 2 puff inhalation QID PRN 04/15/24 04/15/24 History aerosol inhaler Shortness Of Breath Or Wheezing aspirin 81 mg tablet,delayed 81 mg PO DAILY 04/15/24 04/15/24 History release atorvastatin 40 mg tablet 40 mg PO DAILY 04/15/24 04/15/24 History apixaban 5 mg tablet (Eliquis) 5 mg PO BID #60 tabs 04/24/24 Rx docusate sodium 100 mg capsule 100 mg PO BID #60 caps 04/24/24 Rx furosemide 20 mg tablet 20 mg PO QAM #30 tabs 04/24/24 Rx metoprolol succinate 50 mg 50 mg PO BID #60 tabs 04/24/24 Rx tablet,extended release 24 hr lisinopril 20 mg tablet 20 mg PO DAILY #30 tabs 04/26/24 Rx Hospital Stay Data Consultations 04/15/24 21:09 ED Decision to Admit Stat 04/16/24 08:00 Consult Cardiology Routine 04/16/24 12:50 Consult Infectious Diseases Routine Diagnostic Imagining Performed 04/15/24 18:55 US venous doppler LE RT Stat 04/15/24 23:10 CT Abd and Pelvis [CT abd pelvis IV con only] Urgent Pending Results Patient Have Any Pending Studies at Discharge: No Discharge Instructions Given to Patient (Per Discharging Provider) Mr. Medina is a 73-year-old male coming from [facility] with past medical history significant for hypertension, hyperlipidemia, history of bipolar disorder, pulmonary fibrosis, pleural plaque admitted for management of cellulitis. #Sepsis secondary to bacteremia/cellulitis *resolving #Right leg cellulitis with lymphangiitis #Bacteremia CT abd/pelvis with corresponding right inguinal lymphadenopathy Blood cultures with Group G Beta strep (/ bottles) -IV ampicillin 2000mg q4 hours x [address] Dennise ENG 05/01 US guided IV placed 04/24 #Rapid a flutter, New onset *resolved EKG on admission noting trial flutter with variable AV block Trop elevated at 28.2 with note peak of 38.5 ECHO with EF of 60-65%, mild LVH, mild TR and mild left atrium dilation. No pulm htn Converted to sinus rhythm Continue on Eliquis 5mg two times a day Continue metoprolol succinate 50mg two times a day #Lower extremity edema Continue on po lasix 20mg daily #Hyperlipidemia Continue statin #Hypertension Discontinue lisinopril/hydrochlorothiazide Start Lisinopril 20mg daily Total Time Total Time Spent Total Time Spent (In Minutes): 45
== END 2024-04-26 13:45 | DRG 872 ==
LOC: ED 18:46 → SUATTDRO 21:47 → 2S 21:47

== ENCOUNTER 2025-01-27 21:43 | Inpatient (IN) ==
[2025-01-27 22:14] LABS: Basophils # (auto) 0.05 K/uL (0.00-0.20); Basophils % (auto) 0.6 %; Eosinophils # (auto) 0.28 K/uL (0.00-0.50); Eosinophils % (auto) 3.3 %; Hematocrit (blood only) 35.6 % (42.0-52.0); Hemoglobin 12.9 g/dl (14.0-18.0); Immature Granulocytes # (auto) 0.03 K/uL (0.01-0.20); Immature Granulocytes % (auto) 0.4 %; Lymphocytes # (auto) 2.45 K/uL (1.20-3.40); Lymphocytes % (auto) 28.8 %; Mean Corpuscular Hemoglobin 30.5 pg (25.0-34.0); Mean Corpuscular Hgb Conc 36.2 g/dL (32.0-36.0); Mean Corpuscular Volume 84.2 fL (80.0-100.0); Mean Platelet Volume 9.4 fL (9.4-12.4); Monocytes # (auto) 1.12 K/uL (0.11-0.59); Monocytes % (auto) 13.1 %; Neutrophils # (auto) 4.59 K/uL (1.40-6.50); Neutrophils % (auto) 53.8 %; Platelet Count 235 K/uL (130-400); RDW Coefficient of Variation 12.1 % (11.5-14.5); RDW Standard Deviation 36.7 fL (36.4-46.3); Red Blood Count 4.23 M/uL (4.70-6.10); White Blood Count 8.52 K/ul (4.8-10.8)
[2025-01-27 22:20] LABS: iSTAT Creatinine 2.5 mg/dl (0.6-1.3); iSTAT Hemoglobin 13.6 g/dl (14.0-18.0); iSTAT Ionized Calcium 1.04 mmol/l (1.12-1.32); iSTAT Potassium 3.3 mmol/L (3.3-5.0)
[2025-01-27 22:32] LABS: Alanine Aminotransferase 30 U/L (7-52); Albumin Globulin Ratio 1.3 (0.9-2); Albumin Level 4.3 gm/dl (3.4-5.0); Alkaline Phosphatase 100 U/L (34-104); Anion Gap 10 (3-11); Aspartate Aminotransferase 46 U/L (13-39); BUN Creatinine Ratio 31.5 (10-20); Bilirubin,Total 0.8 mg/dl (0.2-1.0); Blood Urea Nitrogen 70 mg/dl (6-23); Calcium 9.8 mg/dl (8.6-10.3); Carbon Dioxide 37 mmol/L (21-32); Chloride 74 mmol/L (98-107); Globulin 3.2 gm/dl (2.5-4.0); Glucose 122 mg/dl (70-99(Fasting)); Lipase 73 U/L (11-82); Potassium 3.4 mmol/L (3.5-5.1); Sodium 121 mmol/L (136-145); Total Protein 7.5 gm/dl (6.0-8.3)
--- NOTE | 2025-01-27 22:43 | Emergency Department Note ---
History of Present Illness General Chief complaint: Fall Stated complaint: N/V,FALL,OFF BALANCE Time Seen by Provider: 01/27/25 21:57 Source: patient and police History of Present Illness Provider complaint: Fall 74-year-old male prisoner on Eliquis presents emergency department for fall. Patient reports that he was in the snf shower when he missed the railing and fell. Patient is reporting no pain at this time. He states he is vomiting a lot though. No hematemesis or cough or emesis. Home Medications Medication Instructions Recorded Confirmed Type albuterol sulfate 90 mcg/actuation 2 puff inhalation QID PRN 04/15/24 01/27/25 History aerosol inhaler Shortness Of Breath aspirin 81 mg tablet,delayed 81 mg PO QPM 04/15/24 01/27/25 History release atorvastatin 40 mg tablet 40 mg PO DAILY 04/15/24 01/27/25 History apixaban 5 mg tablet (Eliquis) 5 mg PO BID #60 tabs 04/24/24 01/27/25 Rx metoprolol succinate 50 mg 50 mg PO BID #60 tabs 04/24/24 01/27/25 Rx tablet,extended release 24 hr lisinopril 20 mg tablet 20 mg PO DAILY #30 tabs 04/26/24 01/27/25 Rx amlodipine 5 mg tablet 5 mg PO DAILY #90 tabs 09/23/24 01/27/25 Rx furosemide 20 mg tablet 20 mg PO BID #60 tabs 09/23/24 01/27/25 Rx furosemide 40 mg tablet 40 mg PO BID 01/27/25 01/27/25 History metolazone 5 mg tablet 5 mg PO QAM 01/27/25 01/27/25 History white petrolatum 1 applic topical BID PRN 01/27/25 01/27/25 History DIRECTED Allergies Allergy/AdvReac Type Severity Reaction Status Date / Time No Known Allergies Allergy Verified 01/27/25 22:23 Past Med/Surg History Problem List (Updated 01/28/25 @ 00:25 by Edmond Caballero MD) Fall (Acute) Hyponatremia (Acute) Lower extremity edema Bacteremia due to Gram-positive bacteria Atrial flutter Cellulitis of leg, right (Acute) Encounter for pre-operative examination Bipolar disorder Hypertension Mixed hyperlipidemia Antisocial personality disorder Bronchiectasis Pulmonary fibrosis Pleural plaque Inguinal hernia Medical History Elevated troponin I level Hypomagnesemia Atrial fibrillation with rapid ventricular response HLD (hyperlipidemia) Pleural plaque Pulmonary fibrosis Bronchiectasis Unilateral inguinal hernia Constipation Surgical History H/O right inguinal hernia repair (10/05/21) Right Open Inguinal Hernia with Bassini Repair, Excision right lipoma of cord(Right) - Bob Blackman MD, FACS 10/05/2021 H/O splenectomy Social History Smoking Status: Former smoker Hx Alcohol Use: No Hx Substance Use: No Preferred Language: [place] Communication Ability: Effective Visual Impairment: No Limitations 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 Required: No Beliefs That Will Affect Care: None Current Living Situation: Other Current Living Situation Comment: Inmate Feels Safe at Home: Yes Assistive Devices: Cane Physical Exam Vital Signs Vital Signs - 24 hr 01/27/25 21:46 01/27/25 22:02 01/27/25 22:45 Temperature 37 C Temperature Source Temporal Artery Scan Pulse Rate 65 Pulse Rate from SpO2 Sensor Pulse Rhythm Regular Pulse Strength Normal Respiratory Rate 18 Respiratory Effort / Characteristics Non-Labored Spontaneous Non-Labored Spontaneous Respiratory Depth Normal Normal Respiratory Pattern Regular Blood Pressure 109/71 Blood Pressure Mean 83 Blood Pressure Position Sitting Pulse Oximetry 96 Oxygen Delivery Method Room Air Room Air Sepsis Recent Fever Within 48 Hours No Sepsis New/Unexplained Change in Mental Status N/A Sepsis Action Taken by Nursing No Action Required 01/27/25 22:45 01/27/25 23:00 01/27/25 23:12 Temperature Temperature Source Pulse Rate 77 73 Pulse Rate from SpO2 Sensor 70 75 68 Pulse Rhythm Pulse Strength Respiratory Rate 21 23 18 Respiratory Effort / Characteristics Respiratory Depth Respiratory Pattern Blood Pressure Blood Pressure Mean Blood Pressure Position Pulse Oximetry 100 100 Oxygen Delivery Method Sepsis Recent Fever Within 48 Hours Sepsis New/Unexplained Change in Mental Status Sepsis Action Taken by Nursing 01/27/25 23:21 01/27/25 23:25 01/27/25 23:30 Temperature Temperature Source Pulse Rate 77 71 77 Pulse Rate from SpO2 Sensor 77 74 Pulse Rhythm Pulse Strength Respiratory Rate 20 21 15 Respiratory Effort / Characteristics Respiratory Depth Respiratory Pattern Blood Pressure Blood Pressure Mean Blood Pressure Position Pulse Oximetry 98 97 100 Oxygen Delivery Method Room Air Sepsis Recent Fever Within 48 Hours Sepsis New/Unexplained Change in Mental Status Sepsis Action Taken by Nursing 01/27/25 23:42 01/27/25 23:57 01/28/25 00:00 Temperature Temperature Source Pulse Rate 74 72 73 Pulse Rate from SpO2 Sensor 74 71 73 Pulse Rhythm Pulse Strength Respiratory Rate 21 24 15 Respiratory Effort / Characteristics Respiratory Depth Respiratory Pattern Blood Pressure Blood Pressure Mean Blood Pressure Position Pulse Oximetry 99 98 100 Oxygen Delivery Method Sepsis Recent Fever Within 48 Hours Sepsis New/Unexplained Change in Mental Status Sepsis Action Taken by Nursing 01/28/25 00:12 Temperature Temperature Source Pulse Rate 77 Pulse Rate from SpO2 Sensor 78 Pulse Rhythm Pulse Strength Respiratory Rate 19 Respiratory Effort / Characteristics Respiratory Depth Respiratory Pattern Blood Pressure Blood Pressure Mean Blood Pressure Position Pulse Oximetry 98 Oxygen Delivery Method Sepsis Recent Fever Within 48 Hours Sepsis New/Unexplained Change in Mental Status Sepsis Action Taken by Nursing Primary Survey Airway: Intact Breathing: Normal, breath sounds equal bilaterally Circulation: Skin warm, distal pulses 2+, capillary refill less than 2 seconds Disability Pupils: Equal and reactive to light, 2 mm, brisk GCS: 15, E = 4 V=4 M= 6 Motor Function: Moves all extremities. Sensory: No deficits Secondary Survey GEN: Well developed and well-nourished HEAD: Normal cephalic abrasion to the head EYES: Pupils round reactive to light, conjunctiva clear, extraocular movements intact, no raccoons eyes ENT: no blackmon's sign, nares patent, oropharynx clear NECK: No JVD, midline trachea, no cervical spine tenderness HEART: Regular rate and rhythm LUNGS: Clear to auscultation bilaterally. CHEST: Chest wall non-tender, no bruising/deformity ABD: soft, non-tender, no rebound or guarding, MUSC: Pelvis stable. No step offs or deformities, T-L spine non tender NEURO: CNII-XII grossly intact, no sensory deficits Course Course 2156: The patient was evaluated in room B8. A complete history and physical exam was performed Cardiac monitoring: An order was placed for continuous cardiac monitoring. The monitor shows a rate of 60 with sinus rhythm interpreted by me 2215: Patient's creatinine is elevated. Patient's sodium is also low. Gentle hydration with IV fluids will be started patient. Patient will be switched to noncontrast CT scans. Chest x-ray and pelvis x-ray reviewed by me showed no traumatic injury. 0000: Vital signs stable. Imaging shows no acute traumatic injury. Labs do confirm hyponatremia of 121. Patient will be admitted to the [facility] hospitalist team. Administered Medications Sodium Chloride (Nss) 1,000 mls @ 125 mls/hr IV .Q8H OTILIA Stop: 01/30/25 22:14 Last Admin: 01/27/25 22:44 Dose: 125 mls/hr Documented By: SON Medical Decision Making Laboratory Data Attestation: I reviewed the patient's lab results. 01/27/25 22:01 01/27/25 22:01 Lab Results 01/27/25 01/27/25 Range/Units 22:01 22:06 WBC 8.52 (4.8-10.8) K/ul RBC 4.23 L (4.70-6.10) M/uL Hgb 12.9 L (14.0-18.0) g/dl POC Hgb 13.6 L (14.0-18.0) g/dl Hct 35.6 L (42.0-52.0) % POC Hct 40 L (42-52) % MCV 84.2 (80.0-100.0) fL MCH 30.5 (25.0-34.0) pg MCHC 36.2 H (32.0-36.0) g/dL RDW Std Deviation 36.7 (36.4-46.3) fL RDW Coeff of Hanane 12.1 (11.5-14.5) % Plt Count 235 (130-400) K/uL MPV 9.4 (9.4-12.4) fL Immature Gran % (Auto) 0.4 % Neut % (Auto) 53.8 % Lymph % (Auto) 28.8 % Phillips % (Auto) 13.1 % Eos % (Auto) 3.3 % Baso % (Auto) 0.6 % Neut # (Auto) 4.59 (1.40-6.50) K/uL Lymph # (Auto) 2.45 (1.20-3.40) K/uL Phillips # (Auto) 1.12 H (0.11-0.59) K/uL Eos # (Auto) 0.28 (0.00-0.50) K/uL Baso # (Auto) 0.05 (0.00-0.20) K/uL Immature Gran # (Auto) 0.03 (0.01-0.20) K/uL PT 10.9 (9.0-12.0) Seconds INR 1.0 (0.9-1.1) APTT 27 (21-31) Seconds PTT Ratio 1.0 POC Sodium 119 L* (135-144) mmol/L Sodium 121 L (136-145) mmol/L POC Potassium 3.3 (3.3-5.0) mmol/L Potassium 3.4 L (3.5-5.1) mmol/L POC Chloride 75 L (101-112) mmol/L Chloride 74 L (98-107) mmol/L Carbon Dioxide 37 H (21-32) mmol/L POC Total CO2 32 H (24-31) mmol/L Anion Gap 10 (3-11) POC Anion Gap 16.0 (16-25) mmol/L POC BUN 59 H (7-18) mg/dl BUN 70 H (6-23) mg/dl Creatinine 2.22 H (0.6-1.4) mg/dl POC Creatinine 2.5 H (0.6-1.3) mg/dl Est Cr Clr Drug Dosing Not Reportable eGFR 30.14 BUN/Creatinine Ratio 31.5 H (10-20) Glucose 122 H (70-99(Fasting)) mg/dl POC Glucose (other) 126 H (70-99) mg/dl Calcium 9.8 (8.6-10.3) mg/dl POC Ioniz Calcium Elizabeth 1.04 L (1.12-1.32) mmol/l Total Bilirubin 0.8 (0.2-1.0) mg/dl AST 46 H (13-39) U/L ALT 30 (7-52) U/L Alkaline Phosphatase 100 (34-104) U/L Total Protein 7.5 (6.0-8.3) gm/dl Albumin 4.3 (3.4-5.0) gm/dl Globulin 3.2 (2.5-4.0) gm/dl Albumin/Globulin Ratio 1.3 (0.9-2) Lipase 73 (11-82) U/L Imaging Data Attestation: I personally reviewed and interpreted this imaging study as follows: My Impression: Chest x-ray and pelvis x-ray reviewed by me showed no traumatic injury. Radiologist's Impression: Chest X-Ray 01/27/25 22:02 Exam(s): XR CXR 1 VIEW EXAM: XR Chest, 1 View CLINICAL HISTORY: Trauma. TECHNIQUE: Frontal view of the chest. COMPARISON: Portable chest single view 04/15/2024 FINDINGS: Lungs: No definite pulmonary contusive injury or focal consolidation. Pleural space: Unremarkable. No pneumothorax. No large pleural effusion. Heart: Unremarkable. No cardiomegaly. Mediastinum: No evidence for mediastinal widening. No tracheal deviation. Bones/joints: No definite acute osseous traumatic injury. IMPRESSION: No radiographic evidence for significant acute traumatic injury involving the chest/thorax. Electronically signed by: Han Sykes MD 01/27/25 23:08 PM Pelvis X-Ray 01/27/25 22:02 Exam(s): XR PELVIS, 1-2 views EXAM: XR Pelvis, 1 or 2 Views CLINICAL HISTORY: Trauma. TECHNIQUE: Frontal view of the pelvis. COMPARISON: No relevant prior studies available. FINDINGS: Bones/joints: Unremarkable. No acute fracture. No dislocation. Soft tissues: Unremarkable. IMPRESSION: No acute traumatic injury identified involving the pelvis. Electronically signed by: Han Sykes MD 01/27/25 23:[address] 01/27/25 22:03 Exam(s): CT C SPINE EXAM: CT Cervical Spine Without Intravenous Contrast CLINICAL HISTORY: Trauma. TECHNIQUE: Axial computed tomography images of the cervical spine without intravenous contrast. CTDI is 26.47 mGy and DLP is 624.41 mGy-cm. Automated exposure control was utilized for the study. A dose lowering technique was utilized adhering to the principles of ALARA. COMPARISON: No relevant prior studies available. FINDINGS: Vertebrae: The vertebral bodies are intact without acute osseous traumatic injury. No anterolisthesis or retrolisthesis is identified. The facet joints are well aligned without subluxation or dislocation. The pedicles, transverse processes and spinous processes are intact. Diffuse facet hypertrophic changes noted bilaterally. Discs/spinal canal/neural foramina: No acute findings. Chronic disc spondylosis with narrowing and marginal hypertrophic osteophyte changes throughout the cervical spine. No acute osseous spinal canal stenosis. Soft tissues: Unremarkable. Lung apices: The included lung apices demonstrate no evidence for acute traumatic injury. IMPRESSION: No acute osseous traumatic injury or significant abnormal alignment involving the cervical spine. Incidental chronic multilevel degenerative changes noted. Electronically signed by: Han Sykes MD 01/27/25 23:[address] 01/27/25 22:03 Exam(s): CT HEAD Without Contrast EXAM: CT Head Without Intravenous Contrast CLINICAL HISTORY: Trauma. TECHNIQUE: Axial computed tomography images of the head/brain without intravenous contrast. CTDI is 35.65 mGy and DLP is 624.41 mGy-cm. Automated exposure control was utilized for the study. A dose lowering technique was utilized adhering to the principles of ALARA. COMPARISON: No relevant prior studies available. FINDINGS: Brain: There are a few areas of decreased attenuation in the deep cerebral white matter consistent with mild small vessel ischemic/degenerative changes. The cerebral and cerebellar sulci are mildly prominent consistent with mild brain atrophy. No intracranial hemorrhage. No significant mass-effect. No cortical infarct. Ventricles: Unremarkable. No ventriculomegaly. Bones/joints: Unremarkable. No acute fracture. Soft tissues: No significant overlying acute traumatic soft tissue abnormality. No radiopaque foreign body. Sinuses: Unremarkable as visualized. No acute sinusitis. Mastoid air cells: Unremarkable as visualized. No mastoid effusion. IMPRESSION: No acute intracranial process identified. Electronically signed by: Han Sykes MD 01/27/25 22:53 PM Abdomen/Pelvis CT 01/27/25 22:11 Exam(s): CT ABDOMEN + PELVIS Without Contrast EXAM: CT Abdomen and Pelvis Without Intravenous Contrast CLINICAL HISTORY: fall. TECHNIQUE: Axial computed tomography images of the abdomen and pelvis without intravenous contrast. CTDI is 35.65 mGy and DLP is 624.41 mGy-cm. Automated exposure control was utilized for the study. A dose lowering technique was utilized adhering to the principles of ALARA. COMPARISON: CT abdomen and pelvis with contrast dated 04/15/2024 FINDINGS: Lung bases: For findings regarding the lung bases, please see the CT report of the chest performed concurrently. No consolidation. ABDOMEN: Liver: The liver is intact without evidence for acute traumatic injury. Gallbladder and bile ducts: Unremarkable. No calcified stones. No ductal dilation. Pancreas: Unremarkable. No ductal dilation. Spleen: The spleen is stable in appearance with multiple splenules. No evidence for acute traumatic injury. Adrenals: Unremarkable. No mass. Kidneys and ureters: The kidneys appear intact without evidence for acute traumatic injury. No obstructing stones. No hydronephrosis. Stomach and bowel: No evidence for acute traumatic bowel injury. No bowel obstruction. No significant asymmetric mucosal thickening. PELVIS: Appendix: No findings to suggest acute appendicitis. Bladder: Unremarkable. No stones. Reproductive: Unremarkable as visualized. ABDOMEN and PELVIS: Intraperitoneal space: Unremarkable. No free air. No significant fluid collection. Retroperitoneal space: No evidence for retroperitoneal hematoma. Bones/joints: The lumbar spine, pelvic bones and proximal femurs are intact. Stable metallic artifact associated with the posterior left 11th fluid. No acute fracture. No dislocation. Soft tissues: No significant overlying acute traumatic soft tissue abnormality identified. Subtle asymmetric fat stranding involving the left lateral abdominal wall. Vasculature: The aorta is normal in caliber without evidence for traumatic injury. Stable extensive atherosclerotic calcification. No abdominal aortic aneurysm. Lymph nodes: Unremarkable. No enlarged lymph nodes. IMPRESSION: No significant acute traumatic injury involving the abdomen or pelvis. Minimal subcutaneous presumed contusive fat stranding involving the left lateral abdominal wall. No hematoma or radiopaque foreign body. Electronically signed by: Han Sykes MD 01/27/25 23:12 PM [facility] Narrative 2157: The patient was evaluated in room B8. A complete history and physical exam was performed Cardiac monitoring: An order was placed for continuous cardiac monitoring. The monitor shows a rate of 60 with sinus rhythm interpreted by me 2215: Patient's creatinine is elevated. Patient's sodium is also low. Gentle hydration with IV fluids will be started patient. Patient will be switched to noncontrast CT scans. Chest x-ray and pelvis x-ray reviewed by me showed no traumatic injury. 0000: Vital signs stable. Imaging shows no acute traumatic injury. Labs do confirm hyponatremia of 121. Patient will be admitted to the [facility] hospitalist team. Impression & Plan Hyponatremia, Fall Discharge Plan Visit Data Chief Complaint: Fall Stated Complaint: N/V,FALL,OFF BALANCE ED Provider: Edmond Caballero Discharge Problem: Hyponatremia, Fall Patient Disposition: Being Evaluated by Hospitalist Condition: Fair Forms Stand Alone Forms: My [facility] Prescriptions Prescriptions: No Action furosemide 20 mg tablet 20 mg PO BID Qty: 60 11RF Rx Instructions: TAKE WITH 40MG amlodipine 5 mg tablet 5 mg PO DAILY Qty: 90 3RF atorvastatin 40 mg Tablet 40 mg PO DAILY aspirin 81 mg Tablet,Delayed Release (Dr/Ec) 81 mg PO QPM albuterol sulfate 90 mcg/actuation Hfa Aerosol Inhaler 2 puff INHALATION QID PRN (Reason: Shortness Of Breath) metoprolol succinate 50 mg Tablet Extended Release 24 Hr 50 mg PO BID Qty: 60 0RF Eliquis 5 mg Tablet 5 mg PO BID Qty: 60 0RF lisinopril 20 mg tablet 20 mg PO DAILY Qty: 30 0RF furosemide 40 mg Tablet 40 mg PO BID Rx Instructions: TAKE WITH 20 MG metolazone 5 mg Tablet 5 mg PO QAM white petrolatum Ointment 1 applic TOPICAL BID PRN (Reason: DIRECTED) Referrals Referrals: Idalmis OSEGUERA [Primary Care Provider] -
[2025-01-27 22:44] LABS: Partial Thromboplastin Time 27 Seconds (21-31); Prothrombin Time 10.9 Seconds (9.0-12.0)
[2025-01-27] MEDS: SODIUM CHLORIDE 0.9% 1,000 ML IV SCH (22:44)
--- NOTE | 2025-01-27 22:54 | CT Scan Report ---
Exam(s): CT HEAD Without Contrast EXAM: CT Head Without Intravenous Contrast CLINICAL HISTORY: Trauma. TECHNIQUE: Axial computed tomography images of the head/brain without intravenous contrast. CTDI is 35.65 mGy and DLP is 624.41 mGy-cm. Automated exposure control was utilized for the study. A dose lowering technique was utilized adhering to the principles of ALARA. COMPARISON: No relevant prior studies available. FINDINGS: Brain: There are a few areas of decreased attenuation in the deep cerebral white matter consistent with mild small vessel ischemic/degenerative changes. The cerebral and cerebellar sulci are mildly prominent consistent with mild brain atrophy. No intracranial hemorrhage. No significant mass-effect. No cortical infarct. Ventricles: Unremarkable. No ventriculomegaly. Bones/joints: Unremarkable. No acute fracture. Soft tissues: No significant overlying acute traumatic soft tissue abnormality. No radiopaque foreign body. Sinuses: Unremarkable as visualized. No acute sinusitis. Mastoid air cells: Unremarkable as visualized. No mastoid effusion. IMPRESSION: No acute intracranial process identified. Electronically signed by: Han Sykes MD 01/27/25 22:53 PM
--- NOTE | 2025-01-27 23:08 | XRay Report ---
Exam(s): XR CXR 1 VIEW EXAM: XR Chest, 1 View CLINICAL HISTORY: Trauma. TECHNIQUE: Frontal view of the chest. COMPARISON: Portable chest single view 04/15/2024 FINDINGS: Lungs: No definite pulmonary contusive injury or focal consolidation. Pleural space: Unremarkable. No pneumothorax. No large pleural effusion. Heart: Unremarkable. No cardiomegaly. Mediastinum: No evidence for mediastinal widening. No tracheal deviation. Bones/joints: No definite acute osseous traumatic injury. IMPRESSION: No radiographic evidence for significant acute traumatic injury involving the chest/thorax. Electronically signed by: Han Sykes MD 01/27/25 23:08 PM
--- NOTE | 2025-01-27 23:08 | CT Scan Report ---
Exam(s): CT C SPINE EXAM: CT Cervical Spine Without Intravenous Contrast CLINICAL HISTORY: Trauma. TECHNIQUE: Axial computed tomography images of the cervical spine without intravenous contrast. CTDI is 26.47 mGy and DLP is 624.41 mGy-cm. Automated exposure control was utilized for the study. A dose lowering technique was utilized adhering to the principles of ALARA. COMPARISON: No relevant prior studies available. FINDINGS: Vertebrae: The vertebral bodies are intact without acute osseous traumatic injury. No anterolisthesis or retrolisthesis is identified. The facet joints are well aligned without subluxation or dislocation. The pedicles, transverse processes and spinous processes are intact. Diffuse facet hypertrophic changes noted bilaterally. Discs/spinal canal/neural foramina: No acute findings. Chronic disc spondylosis with narrowing and marginal hypertrophic osteophyte changes throughout the cervical spine. No acute osseous spinal canal stenosis. Soft tissues: Unremarkable. Lung apices: The included lung apices demonstrate no evidence for acute traumatic injury. IMPRESSION: No acute osseous traumatic injury or significant abnormal alignment involving the cervical spine. Incidental chronic multilevel degenerative changes noted. Electronically signed by: Han Sykes MD 01/27/25 23:07 PM
--- NOTE | 2025-01-27 23:09 | XRay Report ---
Exam(s): XR PELVIS, 1-2 views EXAM: XR Pelvis, 1 or 2 Views CLINICAL HISTORY: Trauma. TECHNIQUE: Frontal view of the pelvis. COMPARISON: No relevant prior studies available. FINDINGS: Bones/joints: Unremarkable. No acute fracture. No dislocation. Soft tissues: Unremarkable. IMPRESSION: No acute traumatic injury identified involving the pelvis. Electronically signed by: Han Sykes MD 01/27/25 23:08 PM
--- NOTE | 2025-01-27 23:13 | CT Scan Report ---
Exam(s): CT ABDOMEN + PELVIS Without Contrast EXAM: CT Abdomen and Pelvis Without Intravenous Contrast CLINICAL HISTORY: fall. TECHNIQUE: Axial computed tomography images of the abdomen and pelvis without intravenous contrast. CTDI is 35.65 mGy and DLP is 624.41 mGy-cm. Automated exposure control was utilized for the study. A dose lowering technique was utilized adhering to the principles of ALARA. COMPARISON: CT abdomen and pelvis with contrast dated 04/15/2024 FINDINGS: Lung bases: For findings regarding the lung bases, please see the CT report of the chest performed concurrently. No consolidation. ABDOMEN: Liver: The liver is intact without evidence for acute traumatic injury. Gallbladder and bile ducts: Unremarkable. No calcified stones. No ductal dilation. Pancreas: Unremarkable. No ductal dilation. Spleen: The spleen is stable in appearance with multiple splenules. No evidence for acute traumatic injury. Adrenals: Unremarkable. No mass. Kidneys and ureters: The kidneys appear intact without evidence for acute traumatic injury. No obstructing stones. No hydronephrosis. Stomach and bowel: No evidence for acute traumatic bowel injury. No bowel obstruction. No significant asymmetric mucosal thickening. PELVIS: Appendix: No findings to suggest acute appendicitis. Bladder: Unremarkable. No stones. Reproductive: Unremarkable as visualized. ABDOMEN and PELVIS: Intraperitoneal space: Unremarkable. No free air. No significant fluid collection. Retroperitoneal space: No evidence for retroperitoneal hematoma. Bones/joints: The lumbar spine, pelvic bones and proximal femurs are intact. Stable metallic artifact associated with the posterior left 11th fluid. No acute fracture. No dislocation. Soft tissues: No significant overlying acute traumatic soft tissue abnormality identified. Subtle asymmetric fat stranding involving the left lateral abdominal wall. Vasculature: The aorta is normal in caliber without evidence for traumatic injury. Stable extensive atherosclerotic calcification. No abdominal aortic aneurysm. Lymph nodes: Unremarkable. No enlarged lymph nodes. IMPRESSION: No significant acute traumatic injury involving the abdomen or pelvis. Minimal subcutaneous presumed contusive fat stranding involving the left lateral abdominal wall. No hematoma or radiopaque foreign body. Electronically signed by: Han Sykes MD 01/27/25 23:12 PM
[2025-01-28] MEDS ORDERED: ACETAMINOPHEN 325 MG TAB PO PRN (00:27)
[2025-01-28] MEDS: POTASSIUM CHLORIDE PWD 20 MEQ PACK PO STA ×2 (00:41→06:24)
[2025-01-28] MEDS: COUGH DROP (SUGAR FREE) LOZ 24 LOZ/1 BOX BUCCAL STA ×2 (00:41→20:38)
[2025-01-28] MEDS: ACETAMINOPHEN 1,000 MG/100 ML VIAL IV STA (00:41)
[2025-01-28] MEDS: SODIUM CHLORIDE 0.9% 1,000 ML IV ONE (00:43)
[2025-01-28 01:03] LABS: Appearance Urine Clear (Clear); Bilirubin Urine Negative (Negative); Blood Urine Negative (Negative); Color Urine Yellow; Glucose Urine UA Negative (Negative); Ketones Urine Negative (Negative); Leukocyte Esterase Urine Negative (Negative); Nitrite Urine Negative (Negative); Protein Urine Negative (Negative); Specific Gravity Urine 1.008 (1.000-1.030); Urobilinogen Urine Negative (Negative); pH Urine 7.5 (4.5-7.5)
[2025-01-28] MEDS ORDERED: oxyCODONE HCL IR 5 MG TAB (IMMEDIATE RELEASE) PO PRN (02:02)
--- NOTE | 2025-01-28 03:07 | History & Physical Report ---
Date of Service January 28, 2025 Assessment & Plan (1) Hyponatremia: Plan: Acute on chronic ARF ? on CKD (creatinine of 1.5 from October 2024) Likely from diuretic Rx at correctional facility for patient chronic leg swelling Hypokalemia secondary to diuretic Rx chronic diastolic heart failure (EF 65%, TTE 2023), patient with dry side mild TR atrial flutter on Eliquis hypertension, BP stable hyperlipidemia, on statin Rx hx PVD pulmonary fibrosis/bronchiectasis as per records, baseline lung status chronic anemia, hemoglobin at baseline chronic bilateral leg swelling, improved with diuretic regimen as per patient mood disorder/antisocial personality disorder, patient not on maintenance medications Hyperglycemia rule out DM past tobacco abuse Admit to med/tele Careful correction of sodium Monitor serum sodium and creatinine response to initial fluid bolus administered at the ER Hyponatremia workup Hold lisinopril and diuretic Rx until creatinine back to baseline Renal ultrasound if without improvement in kidney function May benefit from Nephrology input Replace potassium Check hemoglobin A1c Hold Eliquis for now given recent fall, resume if H&H stable DVT prophylaxis. SCDs hold Eliquis on hold Full code Text document was generated using [employer] voice recognition software. It may contain grammatical or spelling errors. Kindly contact undersigned for clarification of any documentation item in question. Admission and Anticipated Discharge Date Admission Date: January 28, 2025 History of Present Illness Chief Complaint: Fall Primary Care Provider: ANA ROSA Raygoza History obtained from patient and records. Medical history significant for chronic diastolic heart failure (EF 65%, TTE 2023), mild TR, atrial flutter on Eliquis, hypertension, hyperlipidemia, PVD, pulmonary fibrosis/bronchiectasis as per records, chronic hyponatremia, chronic anemia (baseline hemoglobin 11-12), chronic leg swelling, mood disorder, antisocial personality disorder, past tobacco abuse. Last confinement April 2024 for group G beta strep bacteremia secondary to secondary to RLE cellulitis with lymphangitis. Patient discharged on IV ampicillin course. New onset atrial flutter during confinement. Patient discharged on Eliquis Rx. Patient felt dizzy lightheaded while in the shower yesterday. Patient fell down on his bottom. Denies head trauma, LOC, chest pain, SOB. Subsequent nausea and bilious emesis resulting in sore throat. Denies abdominal pain. Usual bilateral leg swelling for which reactional facility provider has been prescribing water pills as per patient. Denies inordinate intake of water. 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 Allergies Allergy/AdvReac Type Severity Reaction Status Date / Time No Known Allergies Allergy Verified 01/27/25 22:23 Home Medications Medication Instructions Recorded Confirmed Type albuterol sulfate 90 mcg/actuation 2 puff inhalation QID PRN 04/15/24 01/27/25 History aerosol inhaler Shortness Of Breath aspirin 81 mg tablet,delayed 81 mg PO QPM 04/15/24 01/27/25 History release atorvastatin 40 mg tablet 40 mg PO DAILY 04/15/24 01/27/25 History apixaban 5 mg tablet (Eliquis) 5 mg PO BID #60 tabs 04/24/24 01/27/25 Rx metoprolol succinate 50 mg 50 mg PO BID #60 tabs 04/24/24 01/27/25 Rx tablet,extended release 24 hr lisinopril 20 mg tablet 20 mg PO DAILY #30 tabs 04/26/24 01/27/25 Rx amlodipine 5 mg tablet 5 mg PO DAILY #90 tabs 09/23/24 01/27/25 Rx furosemide 20 mg tablet 20 mg PO BID #60 tabs 09/23/24 01/27/25 Rx furosemide 40 mg tablet 40 mg PO BID 01/27/25 01/27/25 History metolazone 5 mg tablet 5 mg PO QAM 01/27/25 01/27/25 History white petrolatum 1 applic topical BID PRN 01/27/25 01/27/25 History DIRECTED Past Med/Surg History Problem List (Updated 01/28/25 @ 00:25 by Edmond Caballero MD) Fall (Acute) Hyponatremia (Acute) Lower extremity edema Bacteremia due to Gram-positive bacteria Atrial flutter Cellulitis of leg, right (Acute) Encounter for pre-operative examination Bipolar disorder Hypertension Mixed hyperlipidemia Antisocial personality disorder Bronchiectasis Pulmonary fibrosis Pleural plaque Inguinal hernia Medical History Elevated troponin I level Hypomagnesemia Atrial fibrillation with rapid ventricular response HLD (hyperlipidemia) Pleural plaque Pulmonary fibrosis Bronchiectasis Unilateral inguinal hernia Constipation Surgical History H/O right inguinal hernia repair (10/05/21) Right Open Inguinal Hernia with Bassini Repair, Excision right lipoma of cord(Right) - Bob Blackman MD, FACS 10/05/2021 H/O splenectomy Social History Smoking Status: Former smoker Hx Alcohol Use: No Hx Substance Use: No Preferred Language: Mohawk Communication Ability: Effective Visual Impairment: No Limitations Supply Chain Associate Required: No Beliefs That Will Affect Care: None Current Living Situation: Other Current Living Situation Comment: Correctional facility Other Information That Helps Us Care for You: No Feels Safe at Home: Yes Safety Concerns: Feels Safe At This Time Assistive Devices: Cane Review of Systems Review of Systems: As per HPI, all other systems reviewed and negative Physical Exam Physical Exam: GENERAL: Comfortable, slightly hard of hearing, obese, no respiratory distress SKIN: Normal color, warm HEENT: Partial alopecia, pale palpebral conjunctivae, no ptosis, dry buccal mucosa NECK : Supple, no tenderness CHEST : Decreased breath sounds, no tenderness HEART : RRR, no obvious murmurs ABDOMEN: Some distention, nontender EXTREMITIES : Bilateral LE swelling without tenderness, palpable pulses, no other conspicuous deformities noted NEUROLOGIC : Coherent, no facial asymmetry, no other gross focality Results & Data Results & Data Vital Signs (Past 12 Hours) Vital Signs Temp Pulse Resp BP Pulse Ox O2 Del Method 01/28/25 01:45 81 18 01/28/25 01:33 80 18 01/28/25 01:30 150/88 H 01/28/25 01:30 150/88 H 01/28/25 01:21 81 21 93 01/28/25 01:21 79 01/28/25 01:12 81 23 01/28/25 01:01 156/83 H 01/28/25 01:01 156/83 H 01/28/25 01:01 156/83 H 01/28/25 01:00 81 21 01/28/25 01:00 Room Air 01/28/25 00:49 144/85 H 01/28/25 00:48 78 18 98 01/28/25 00:21 76 17 96 01/28/25 00:12 77 19 98 01/28/25 00:00 73 15 100 05/05/25 23:57 72 24 98 01/27/25 23:42 74 21 99 01/27/25 23:30 77 15 100 01/27/25 23:25 71 21 97 Room Air 01/27/25 23:21 77 20 98 01/27/25 23:12 73 18 01/27/25 23:00 77 23 100 01/27/25 22:45 21 100 01/27/25 22:02 Room Air 01/27/25 21:46 37 C 65 18 109/71 96 Room Air Laboratory Results Laboratory Results WBC 8.52 K/ul (4.8-10.8) 01/27/25 22:01 RBC 4.23 M/uL (4.70-6.10) L 01/27/25 22:01 Hgb 12.9 g/dl (14.0-18.0) L 01/27/25 22:01 POC Hgb 13.6 g/dl (14.0-18.0) L 01/27/25 22:06 Hct 35.6 % (42.0-52.0) L 01/27/25 22:01 POC Hct 40 % (42-52) L 01/27/25 22:06 MCV 84.2 fL (80.0-100.0) 01/27/25 22:01 MCH 30.5 pg (25.0-34.0) 01/27/25 22:01 MCHC 36.2 g/dL (32.0-36.0) H 01/27/25 22:01 RDW Std Deviation 36.7 fL (36.4-46.3) 01/27/25 22:01 RDW Coeff of [place] 12.1 % (11.5-14.5) 01/27/25 22:01 Plt Count 235 K/uL (130-400) 01/27/25 22:01 MPV 9.4 fL (9.4-12.4) 01/27/25 22:01 Immature Gran % (Auto) 0.4 % 01/27/25 22:01 Neut % (Auto) 53.8 % 01/27/25 22:01 Lymph % (Auto) 28.8 % 01/27/25 22:01 [place] % (Auto) 13.1 % 01/27/25 22:01 Eos % (Auto) 3.3 % 01/27/25 22:01 Baso % (Auto) 0.6 % 01/27/25 22:01 Neut # (Auto) 4.59 K/uL (1.40-6.50) 01/27/25 22:01 Lymph # (Auto) 2.45 K/uL (1.20-3.40) 01/27/25 22:01 [place] # (Auto) 1.12 K/uL (0.11-0.59) H 01/27/25 22:01 Eos # (Auto) 0.28 K/uL (0.00-0.50) 01/27/25 22:01 Baso # (Auto) 0.05 K/uL (0.00-0.20) 01/27/25 22: Immature Gran # (Auto) 0.03 K/uL (0.01-0.20) 01/27/25 22:01 PT 10.9 Seconds (9.0-12.0) 01/27/25 22:01 INR 1.0 (0.9-1.1) 01/27/25 22:01 APTT 27 Seconds (21-31) 01/27/25 22:01 PTT Ratio 1.0 01/27/25 22:01 POC Sodium 119 mmol/L (135-144) L* 01/27/25 22:06 Sodium 121 mmol/L (136-145) L 01/27/25 22:01 POC Potassium 3.3 mmol/L (3.3-5.0) 01/27/25 22:06 Potassium 3.4 mmol/L (3.5-5.1) L 01/27/25 22:01 POC Chloride 75 mmol/L (101-112) L 01/27/25 22:06 Chloride 74 mmol/L (98-107) L 01/27/25 22:01 Carbon Dioxide 37 mmol/L (21-32) H 01/27/25 22:01 POC Total CO2 32 mmol/L (24-31) H 01/27/25 22:06 Anion Gap 10 (3-11) 01/27/25 22:01 POC Anion Gap 16.0 mmol/L (16-25) 01/27/25 22:06 POC BUN 59 mg/dl (7-18) H 01/27/25 22:06 BUN 70 mg/dl (6-23) H 01/27/25 22:01 Creatinine 2.22 mg/dl (0.6-1.4) H 01/27/25 22: POC Creatinine 2.5 mg/dl (0.6-1.3) H 01/27/25 22:06 Est Cr Clr Drug Dosing Not Reportable 01/27/25 22: eGFR 30.14 01/27/25 22: BUN/Creatinine Ratio 31.5 (10-20) H 01/27/25 22: Glucose 122 mg/dl (70-99(Fasting)) H 01/27/25 22: POC Glucose (other) 126 mg/dl (70-99) H 01/27/25 22:06 Osmolality 276 mOsm/kg (280-300) L 01/27/25 22: Calcium 9.8 mg/dl (8.6-10.3) 01/27/25 22: POC Ioniz Calcium [place] 1.04 mmol/l (1.12-1.32) L 01/27/25 22: Magnesium 2.0 mg/dl (1.7-2.4) 01/27/25 22: Total Bilirubin 0.8 mg/dl (0.2-1.0) 01/27/25 22:01 AST 46 U/L (13-39) H 01/27/25 22: ALT 30 U/L (7-52) 01/27/25 22: Alkaline Phosphatase 100 U/L (34-104) 01/27/25 22: Total Protein 7.5 gm/dl (6.0-8.3) 01/27/25 22: Albumin 4.3 gm/dl (3.4-5.0) 01/27/25 22: Globulin 3.2 gm/dl (2.5-4.0) 01/27/25 22: Albumin/Globulin Ratio 1.3 (0.9-2) 01/27/25 22: Lipase 73 U/L (11-82) 01/27/25 22: Urine Color Yellow 01/28/25 00:47 Urine Appearance Clear (Clear) 01/28/25 00:47 Urine pH 7.5 (4.5-7.5) 01/28/25 00:47 Ur Specific [place] 1.008 (1.000-1.030) 01/28/25 00:47 Urine Protein Negative (Negative) 01/28/25 00:47 Urine Glucose (UA) Negative (Negative) 01/28/25 00:47 Urine Ketones Negative (Negative) 01/28/25 00:47 Urine Blood Negative (Negative) 01/28/25 00:47 Urine Nitrite Negative (Negative) 01/28/25 00:47 Urine Bilirubin Negative (Negative) 01/28/25 00:47 Urine Urobilinogen Negative (Negative) 01/28/25 00:47 Ur Leukocyte Esterase Negative (Negative) 01/28/25 00:47 Urine Osmolality 262 mOsm/kg (500-800) L 01/28/25 00:47 Ur Random Sodium 39 mmol/L 01/28/25 00:47 Impressions Chest X-Ray 01/27/25 22:02 Exam(s): XR CXR 1 VIEW EXAM: XR Chest, 1 View CLINICAL HISTORY: Trauma. TECHNIQUE: Frontal view of the chest. COMPARISON: Portable chest single view 04/15/2024 FINDINGS: Lungs: No definite pulmonary contusive injury or focal consolidation. Pleural space: Unremarkable. No pneumothorax. No large pleural effusion. Heart: Unremarkable. No cardiomegaly. Mediastinum: No evidence for mediastinal widening. No tracheal deviation. Bones/joints: No definite acute osseous traumatic injury. IMPRESSION: No radiographic evidence for significant acute traumatic injury involving the chest/thorax. Electronically signed by: Han Sykes MD 01/27/25 23:08 PM Pelvis X-Ray 01/27/25 22:02 Exam(s): XR PELVIS, 1-2 views EXAM: XR Pelvis, 1 or 2 Views CLINICAL HISTORY: Trauma. TECHNIQUE: Frontal view of the pelvis. COMPARISON: No relevant prior studies available. FINDINGS: Bones/joints: Unremarkable. No acute fracture. No dislocation. Soft tissues: Unremarkable. IMPRESSION: No acute traumatic injury identified involving the pelvis. Electronically signed by: Han Sykes MD 01/27/25 23:[address] 01/27/25 22:03 Exam(s): CT C SPINE EXAM: CT Cervical Spine Without Intravenous Contrast CLINICAL HISTORY: Trauma. TECHNIQUE: Axial computed tomography images of the cervical spine without intravenous contrast. CTDI is 26.47 mGy and DLP is 624.41 mGy-cm. Automated exposure control was utilized for the study. A dose lowering technique was utilized adhering to the principles of ALARA. COMPARISON: No relevant prior studies available. FINDINGS: Vertebrae: The vertebral bodies are intact without acute osseous traumatic injury. No anterolisthesis or retrolisthesis is identified. The facet joints are well aligned without subluxation or dislocation. The pedicles, transverse processes and spinous processes are intact. Diffuse facet hypertrophic changes noted bilaterally. Discs/spinal canal/neural foramina: No acute findings. Chronic disc spondylosis with narrowing and marginal hypertrophic osteophyte changes throughout the cervical spine. No acute osseous spinal canal stenosis. Soft tissues: Unremarkable. Lung apices: The included lung apices demonstrate no evidence for acute traumatic injury. IMPRESSION: No acute osseous traumatic injury or significant abnormal alignment involving the cervical spine. Incidental chronic multilevel degenerative changes noted. Electronically signed by: Han Sykes MD 01/27/25 23:[address] 01/27/25 22:03 Exam(s): CT HEAD Without Contrast EXAM: CT Head Without Intravenous Contrast CLINICAL HISTORY: Trauma. TECHNIQUE: Axial computed tomography images of the head/brain without intravenous contrast. CTDI is 35.65 mGy and DLP is 624.41 mGy-cm. Automated exposure control was utilized for the study. A dose lowering technique was utilized adhering to the principles of ALARA. COMPARISON: No relevant prior studies available. FINDINGS: Brain: There are a few areas of decreased attenuation in the deep cerebral white matter consistent with mild small vessel ischemic/degenerative changes. The cerebral and cerebellar sulci are mildly prominent consistent with mild brain atrophy. No intracranial hemorrhage. No significant mass-effect. No cortical infarct. Ventricles: Unremarkable. No ventriculomegaly. Bones/joints: Unremarkable. No acute fracture. Soft tissues: No significant overlying acute traumatic soft tissue abnormality. No radiopaque foreign body. Sinuses: Unremarkable as visualized. No acute sinusitis. Mastoid air cells: Unremarkable as visualized. No mastoid effusion. IMPRESSION: No acute intracranial process identified. Electronically signed by: Han Sykes MD 01/27/25 22:53 PM Abdomen/Pelvis CT 01/27/25 22:11 Exam(s): CT ABDOMEN + PELVIS Without Contrast EXAM: CT Abdomen and Pelvis Without Intravenous Contrast CLINICAL HISTORY: fall. TECHNIQUE: Axial computed tomography images of the abdomen and pelvis without intravenous contrast. CTDI is 35.65 mGy and DLP is 624.41 mGy-cm. Automated exposure control was utilized for the study. A dose lowering technique was utilized adhering to the principles of ALARA. COMPARISON: CT abdomen and pelvis with contrast dated 04/15/2024 FINDINGS: Lung bases: For findings regarding the lung bases, please see the CT report of the chest performed concurrently. No consolidation. ABDOMEN: Liver: The liver is intact without evidence for acute traumatic injury. Gallbladder and bile ducts: Unremarkable. No calcified stones. No ductal dilation. Pancreas: Unremarkable. No ductal dilation. Spleen: The spleen is stable in appearance with multiple splenules. No evidence for acute traumatic injury. Adrenals: Unremarkable. No mass. Kidneys and ureters: The kidneys appear intact without evidence for acute traumatic injury. No obstructing stones. No hydronephrosis. Stomach and bowel: No evidence for acute traumatic bowel injury. No bowel obstruction. No significant asymmetric mucosal thickening. PELVIS: Appendix: No findings to suggest acute appendicitis. Bladder: Unremarkable. No stones. Reproductive: Unremarkable as visualized. ABDOMEN and PELVIS: Intraperitoneal space: Unremarkable. No free air. No significant fluid collection. Retroperitoneal space: No evidence for retroperitoneal hematoma. Bones/joints: The lumbar spine, pelvic bones and proximal femurs are intact. Stable metallic artifact associated with the posterior left 11th fluid. No acute fracture. No dislocation. Soft tissues: No significant overlying acute traumatic soft tissue abnormality identified. Subtle asymmetric fat stranding involving the left lateral abdominal wall. Vasculature: The aorta is normal in caliber without evidence for traumatic injury. Stable extensive atherosclerotic calcification. No abdominal aortic aneurysm. Lymph nodes: Unremarkable. No enlarged lymph nodes. IMPRESSION: No significant acute traumatic injury involving the abdomen or pelvis. Minimal subcutaneous presumed contusive fat stranding involving the left lateral abdominal wall. No hematoma or radiopaque foreign body. Electronically signed by: Han Sykes MD 01/27/25 23:12 PM Code Status & VTE Plan VTE Prophylaxis Plan VTE Prophylaxis will be ordered: Yes
[2025-01-28 05:00] LABS: BUN Creatinine Ratio 34.7 (10-20); Calcium 9.2 mg/dl (8.6-10.3); Creatinine Clr Calc Pharmacy 38.8 ml/min; Potassium 3.2 mmol/L (3.5-5.1)
[2025-01-28 05:29] LABS: Basophils # (auto) 0.03 K/uL (0.00-0.20); Basophils % (auto) 0.3 %; Eosinophils # (auto) 0.04 K/uL (0.00-0.50); Eosinophils % (auto) 0.3 %; Hematocrit (blood only) 33.2 % (42.0-52.0); Hemoglobin 11.9 g/dl (14.0-18.0); Immature Granulocytes # (auto) 0.06 K/uL (0.01-0.20); Immature Granulocytes % (auto) 0.5 %; Lymphocytes # (auto) 2.13 K/uL (1.20-3.40); Lymphocytes % (auto) 18.4 %; Mean Corpuscular Hemoglobin 30.7 pg (25.0-34.0); Mean Corpuscular Hgb Conc 35.8 g/dL (32.0-36.0); Mean Corpuscular Volume 85.6 fL (80.0-100.0); Mean Platelet Volume 9.8 fL (9.4-12.4); Monocytes # (auto) 1.24 K/uL (0.11-0.59); Monocytes % (auto) 10.7 %; Neutrophils # (auto) 8.09 K/uL (1.40-6.50); Neutrophils % (auto) 69.8 %; Platelet Count 218 K/uL (130-400); RDW Coefficient of Variation 12.1 % (11.5-14.5); RDW Standard Deviation 37.5 fL (36.4-46.3); Red Blood Count 3.88 M/uL (4.70-6.10); White Blood Count 11.59 K/ul (4.8-10.8)
[2025-01-28] MEDS: NSS + 20MEQ KCL 20 MEQ/1,000 ML BAG IV ONE ×2 (06:24→23:39)
[2025-01-28] MEDS: PROMETHAZINE 6.25 MG/50.25 ML BAG IV PRN (06:31)
[2025-01-28 06:34] LABS: Thyroid Stimulating Hormone 2.147 uIu/ml (0.300-4.500)
[2025-01-28 08:01] LABS: Estimated Average Glucose 131 mg/dl; Hemoglobin A1C 6.2 % (4.5-5.6)
[2025-01-28] MEDS: amLODIPine BESYLATE 5 MG TAB PO SCH (08:32)
[2025-01-28] MEDS: METOPROLOL SUCC 50MG EXT REL TAB PO SCH (08:32)
--- NOTE | 2025-01-28 10:32 | Nephrology Consultation ---
Date of Consultation January 28, 2025 Assessment & Plan (1) Hyponatremia: most likely caused by metolazone--this can cause profound Hyponatremia from natriuresis. It appears this was added recently within weeks as per patient. lasix alone is typically not associated with Hyponatremia as it causes aquaresis. going forward he should not get metoalzone ever nor HCTZ. He should be managed strictly with Lasix/Bumex/torsemide only. for now check BMP every 6 hrs and Continue NS with KCl. NA is going up nicely an d is now 123. (2) ISADORA (acute kidney injury): Likely pre renal from Diuretics edward the recent addition of metolazone. Creat trending down now with IVF so good sign. Continue ivf till AM Plan Previous admissions reviewed. Multiple labs done at multiple time reviewed and addressed. total time spent 62 mins History of Present Illness Reason for Consultation: Hyponatremia and ISADORA Attending Physician: Lexa Pfeiffer MD History of Present Illness 74/M from [facility] brought in after fall from weakness. He has chronic diastolic heart failure (EF 65%, TTE 2023), mild TR, atrial flutter on Eliquis, hypertension, hyperlipidemia, PVD, pulmonary fibrosis/bronchiectasis as per records, chronic hyponatremia, chronic anemia (baseline hemoglobin 11-12), chronic leg swelling, mood disorder, antisocial personality disorder, past tobacco abuse. NO traumatic Injuries anywhere on imaging. However had low na of 119 and ISADORA with Creat of 2.2 ( baseline 1.5 as of ). He was on lasix 20 daily then 20 bid and then 60 bid for few months but then metolazone was added it seems recently--as per patient within last few weeks ( cant find record though ) he has h/o CHF, Atrial flutter and has Chronic severe edema b/l. as per patient edema is lot less now than before but even now has edema b/l with Chronic Skin changes and redness. Currently Both lasix and metolazone stopped and getting IVF. Na is rising slowly and is up to 123 now. he also had Low Na in his previous admission but was normal 136 by discharge--HCTZ was stopped that time and IVF given ROS--otherwise 12 Systems negative Physical Exam Physical Exam: GENERAL: Comfortable, no respiratory distress. normal speech HEENT: Partial alopecia, pale palpebral conjunctivae, no ptosis, dry buccal mucosa NECK : Supple, no tenderness CHEST : Decreased breath sounds, no tenderness HEART : RRR, no murmurs ABDOMEN: Soft nontender EXTREMITIES : b/l chronic edema with Skin changes and redness Allergies Allergy/AdvReac Type Severity Reaction Status Date / Time No Known Allergies Allergy Verified 01/27/25 22:23 Home Medications Medication Instructions Recorded Confirmed Type albuterol sulfate 90 mcg/actuation 2 puff inhalation QID PRN 04/15/24 01/27/25 History aerosol inhaler Shortness Of Breath aspirin 81 mg tablet,delayed 81 mg PO QPM 04/15/24 01/27/25 History release atorvastatin 40 mg tablet 40 mg PO DAILY 04/15/24 01/27/25 History apixaban 5 mg tablet (Eliquis) 5 mg PO BID #60 tabs 04/24/24 01/27/25 Rx metoprolol succinate 50 mg 50 mg PO BID #60 tabs 04/24/24 01/27/25 Rx tablet,extended release 24 hr lisinopril 20 mg tablet 20 mg PO DAILY #30 tabs 04/26/24 01/27/25 Rx amlodipine 5 mg tablet 5 mg PO DAILY #90 tabs 09/23/24 01/27/25 Rx furosemide 20 mg tablet 20 mg PO BID #60 tabs 09/23/24 01/27/25 Rx furosemide 40 mg tablet 40 mg PO BID 01/27/25 01/27/25 History metolazone 5 mg tablet 5 mg PO QAM 01/27/25 01/27/25 History white petrolatum 1 applic topical BID PRN 01/27/25 01/27/25 History DIRECTED Patient History Medical History Elevated troponin I level Hypomagnesemia Atrial fibrillation with rapid ventricular response HLD (hyperlipidemia) Pleural plaque Pulmonary fibrosis Bronchiectasis Unilateral inguinal hernia Constipation Surgical History H/O right inguinal hernia repair (10/05/21) Right Open Inguinal Hernia with Bassini Repair, Excision right lipoma of cord(Right) - Bob Blackman MD, FACS 10/05/2021 H/O splenectomy Social History Smoking Status: Former smoker Hx Alcohol Use: No Hx Substance Use: No Preferred Language: Georgian Communication Ability: Effective Visual Impairment: No Limitations Senior Adults Director Required: No Beliefs That Will Affect Care: None Current Living Situation: Other Current Living Situation Comment: Correctional facility Other Information That Helps Us Care for You: No Feels Safe at Home: Yes Safety Concerns: Feels Safe At This Time Assistive Devices: Cane Results & Data Vital Signs (Past 12 Hours) Vital Signs Pulse Resp BP Pulse Ox O2 Del Method 01/28/25 10:00 63 18 96 01/28/25 09:30 64 17 97 01/28/25 09:03 76 16 95 01/28/25 08:39 80 22 95 01/28/25 08:03 65 15 94 01/28/25 08:00 104/60 01/28/25 08:00 104/60 01/28/25 07:42 76 23 97 01/28/25 07:30 66 17 99 01/28/25 07:30 104/52 L 01/28/25 07:30 104/52 L 01/28/25 07:12 70 01/28/25 07:00 112/74 01/28/25 07:00 72 19 85 L 01/28/25 06:33 72 20 100 01/28/25 06:30 114/68 01/28/25 06:27 73 16 100 01/28/25 06:00 71 17 92 01/28/25 06:00 112/58 L 01/28/25 06:00 112/58 L 01/28/25 06:00 112/58 L 01/28/25 05:51 72 18 89 L 01/28/25 05:30 110/61 01/28/25 05:30 110/61 01/28/25 05:30 74 16 87 L 01/28/25 05:27 73 23 87 L 01/28/25 05:06 78 17 98 01/28/25 05:00 72 19 117/67 99 Room Air 01/28/25 04:39 76 23 105/70 99 Room Air 01/28/25 04:15 73 17 96 01/28/25 04:06 80 19 95 01/28/25 04:00 135/73 01/28/25 04:00 135/73 01/28/25 03:57 77 16 100 01/28/25 03:51 72 23 98 01/28/25 03:45 75 18 97 01/28/25 03:36 72 17 91 01/28/25 03:30 140/71 01/28/25 03:30 140/71 01/28/25 03:27 74 19 95 01/28/25 03:24 77 20 97 01/28/25 03:13 Room Air 01/28/25 03:12 80 20 100 01/28/25 03:00 121/73 01/28/25 02:51 90 13 01/28/25 02:36 73 21 01/28/25 02:30 127/83 01/28/25 02:30 127/83 01/28/25 02:30 127/83 01/28/25 02:03 76 21 01/28/25 02:00 120/96 01/28/25 02:00 120/96 01/28/25 02:00 79 20 01/28/25 01:45 81 18 01/28/25 01:33 80 18 01/28/25 01:30 150/88 H 01/28/25 01:30 150/88 H 01/28/25 01:21 81 21 93 01/28/25 01:21 79 01/28/25 01:12 81 23 01/28/25 01:01 156/83 H 01/28/25 01:01 156/83 H 01/28/25 01:01 156/83 H 01/28/25 01:00 81 21 01/28/25 01:00 Room Air 01/28/25 00:49 144/85 H 01/28/25 00:48 78 18 98 01/28/25 00:21 76 17 96 01/28/25 00:12 77 19 98 01/28/25 00:00 73 15 100 01/27/25 23:57 72 24 98 01/27/25 23:42 74 21 99 01/27/25 23:30 77 15 100 01/27/25 23:25 71 21 97 Room Air 01/27/25 23:21 77 20 98 01/27/25 23:12 73 18 01/27/25 23:00 77 23 100 01/27/25 22:45 21 100 Laboratory Results CBC, renal Panel, UA. Imaging
--- NOTE | 2025-01-28 21:29 | Communication Note ---
Date of Service: January 28, 2025 seen resting in bed, sitting up having dinner states he feels weak no chest pain, dyspnea, palpitations, dizziness Na trending up 121--> 125 continue IV NSS repeat Na at 10pm stop if Na >129 Lexa Pfeiffer MD
[2025-01-28 22:55] LABS: Hematocrit (blood only) 34.1 % (42.0-52.0); Hemoglobin 12.2 g/dl (14.0-18.0)
[2025-01-28] MEDS: COUGH DROP (SUGAR FREE) LOZ 24 LOZ/1 BOX BUCCAL PRN (23:39)
[2025-01-29 00:43] VITALS: TEMP 98.1
[2025-01-29] MEDS: APIXABAN 5 MG TABLET PO SCH (01:48)
[2025-01-29 05:05] VITALS: RESP 18
[2025-01-29] MEDS: hydrOXYzine HCl 10 MG TAB PO PRN (09:09)
--- NOTE | 2025-01-29 09:25 | Nephrology Progress Note ---
Date of Service January 29, 2025 Assessment & Plan Admission and Anticipated Discharge Date Admission Date: January 28, 2025 Subjective Assessment & Plan (1) Hyponatremia: most likely caused by metolazone--this can cause profound Hyponatremia from natriuresis. It appears this was added recently within weeks as per patient. lasix alone is typically not associated with Hyponatremia as it causes aqua resis. going forward he should not get metoalzone ever nor HCTZ. He should be managed strictly with Lasix/Bumex/torsemide only. NA is going up nicely and is now 126 but 9 AM labs pending and will decide further after that. (2) ISADORA (acute kidney injury): Likely pre renal from Diuretics edward the recent addition of metolazone. Creat trending down now with IVF so good sign. will decide about ivf after 9 AM labs is back. S--No new issues. making urine. Na going up slowly. ROS--otherwise 12 Systems negative Physical Exam Physical Exam: GENERAL: Comfortable, no respiratory distress. normal speech HEENT: Partial alopecia, pale palpebral conjunctivae, no ptosis, dry buccal mucosa NECK : Supple, no tenderness CHEST : Decreased breath sounds, no tenderness HEART : RRR, no murmurs ABDOMEN: Soft nontender EXTREMITIES : b/l chronic edema with Skin changes and redness Results & Data Vital Signs (Past 12 Hours) Vital Signs Temp Pulse Pulse Pulse Resp BP Pulse Ox 01/29/25 08:05 36.7 C 71 18 134/68 99 01/29/25 06:55 73 01/29/25 04:00 36.7 C 70 18 121/76 96 01/29/25 00:00 36.7 C 75 20 127/77 97 01/28/25 23:32 68 01/28/25 22:19 O2 Del Method 01/29/25 08:05 Room Air 01/29/25 06:55 01/29/25 04:00 Room Air 01/29/25 00:00 Room Air 01/28/25 23:32 01/28/25 22:19 Room Air
[2025-01-29 09:34] LABS: BUN Creatinine Ratio 33.6 (10-20); Calcium 9.4 mg/dl (8.6-10.3); Creatinine Clr Calc Pharmacy 56.1 ml/min; Potassium 3.6 mmol/L (3.5-5.1)
--- NOTE | 2025-01-29 11:29 | Discharge Summary ---
Date of Service January 29, 2025 Admission HPI Per Admitting Provider History obtained from patient and records. Medical history significant for chronic diastolic heart failure (EF 65%, TTE 2023), mild TR, atrial flutter on Eliquis, hypertension, hyperlipidemia, PVD, pulmonary fibrosis/bronchiectasis as per records, chronic hyponatremia, chronic anemia (baseline hemoglobin 11-12), chronic leg swelling, mood disorder, antisocial personality disorder, past tobacco abuse. Last confinement April 2024 for group G beta strep bacteremia secondary to secondary to RLE cellulitis with lymphangitis. Patient discharged on IV ampicillin course. New onset atrial flutter during confinement. Patient discharged on Eliquis Rx. Patient felt dizzy lightheaded while in the shower yesterday. Patient fell down on his bottom. Denies head trauma, LOC, chest pain, SOB. Subsequent nausea and bilious emesis resulting in sore throat. Denies abdominal pain. Usual bilateral leg swelling for which reactional facility provider has been prescribing water pills as per patient. Denies inordinate intake of water. 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 Admission Exam Per Admitting Provider GENERAL: Comfortable, slightly hard of hearing, obese, no respiratory distress SKIN: Normal color, warm HEENT: Partial alopecia, pale palpebral conjunctivae, no ptosis, dry buccal mucosa NECK : Supple, no tenderness CHEST : Decreased breath sounds, no tenderness HEART : RRR, no obvious murmurs ABDOMEN: Some distention, nontender EXTREMITIES : Bilateral LE swelling without tenderness, palpable pulses, no other conspicuous deformities noted NEUROLOGIC : Coherent, no facial asymmetry, no other gross focality Principal Diagnosis Hyponatremia ISADORA Discharge Exam Constitutional: WD/WN, vitals as above, NAD, sitting up in bed, pleasant, conversing easily Respiratory: normal respiratory effort, lungs clear to auscultation, no wheeze, rales, rhonchi. Normal insp/exp effort, no accessory muscle use Cardiovascular: RRR, no murmur, no edema Vessels: no JVD or carotid bruit Chest: normal inspection of chest Abdomen: normal bowel sounds, soft, nontender, no hepatosplenomegaly Musculoskeletal: no cyanosis or clubbing, extremities motor strength 5/5 Skin: no rashes, warm and dry normal turgor Neurologic: PERRL, EOMI, accommodation nl, no face palsy, no dysarthria CN's II- XI intact bilaterally and moves all extremities Discharge Data Allergies Allergy/AdvReac Type Severity Reaction Status Date / Time No Known Allergies Allergy Verified 01/27/25 22:23 Consultations 01/27/25 23:58 ED Decision to Admit Stat 01/28/25 09:14 Consult Nephrology Routine Ordered Studies 01/27/25 22:03 CT cervical spine wo con Stat CT head/brain wo con Stat 01/27/25 22:11 CT abd pelvis wo con Stat Hospital Course (1) ISADORA (acute kidney injury): (2) Hyponatremia: Plan Patient presented to the hospital with dizziness and lightheadedness. He reports that he has been prescribed water pill at the facility; review of medication revealed metolazone. He was found to have acute kidney injury and hyponatremia. Nephrology was consulted for comanagement; was given IV fluid and metolazone was stopped. Patient ISADORA resolved and his serum sodium continued to improve. At the time of the discharge, discussion was done with the correctional facility regarding stopping metolazone. Lasix dose was decreased to 20 mg twice daily Please note the above document was generated using voice recognition software. It may contain grammatical, syntax or spelling errors. Any formal questions or concerns about the content, text or information contained within the body of this dictation should be directly addressed to the provider for clarification Total Time Total Time Spent Total Time Spent (In Minutes): 45 Total Time Includes: Examination of the Patient, Discharge Planning, Medication Reconciliation, Communication With Other Providers and Other Discharge Plan Discharge Items Patient Disposition: Home - Self-Care Reason For Visit: HYPONATREMIA Discharge Diagnosis: Hyponatremia Condition on Discharge: Fair Activity: Resume your previous activity Non-emergency contact: Primary Care Provider Call non-emergency contact if: you have any medication questions and your symptoms worsen Follow-up/Referrals: Idalmis OSEGUERA [Primary Care Provider] - Diet: Regular Fluids: 1800ml (7 cups) Addtl Attending Provider Instructions: You were admitted to the hospital with low sodium level and acute kidney injury. Please stop taking metolazone going forward. Your diuretic dose has been decreased to Lasix 20 mg twice daily. Do not ever use thiazide diuretic. Pending Studies at Discharge: No Stand-Alone Forms: My [facility], Smoking Cessation Medications and DC Order Prescriptions: Continued furosemide 20 mg tablet 20 mg PO BID Qty: 60 11RF Rx Instructions: TAKE WITH 40MG amlodipine 5 mg tablet 5 mg PO DAILY Qty: 90 3RF atorvastatin 40 mg Tablet 40 mg PO DAILY aspirin 81 mg Tablet,Delayed Release (Dr/Ec) 81 mg PO QPM albuterol sulfate 90 mcg/actuation Hfa Aerosol Inhaler 2 puff INHALATION QID PRN (Reason: Shortness Of Breath) metoprolol succinate 50 mg Tablet Extended Release 24 Hr 50 mg PO BID Qty: 60 0RF Eliquis 5 mg Tablet 5 mg PO BID Qty: 60 0RF lisinopril 20 mg tablet 20 mg PO DAILY Qty: 30 0RF white petrolatum Ointment 1 applic TOPICAL BID PRN (Reason: DIRECTED) Discontinued furosemide 40 mg Tablet 40 mg PO BID Rx Instructions: TAKE WITH 20 MG metolazone 5 mg Tablet 5 mg PO QAM Discharge Orders: Discharge Order (Routine); Ordered 01/29/25 Ordered By: Tomy Link/Other Patient Handouts: Prediabetes, 5 Steps for Eating Healthier Admission Data Admit Date/Time: 01/28/25 01:24 Attending Provider: Tomy Yeung Admit Provider: Eliseo Browning Primary Care Provider: Idalmis OSEGUERA Other Providers: Eliseo Browning; Annabella Stanford; Morro Moulton; Beatrice Prajapati; Sofia Keenan; April Simeon Other Interventions: Discharge Summary Assessment (RN) Last Done: 01/29/25 12:22
[2025-01-29 11:49] VITALS: BP 134/68; PULSE 70; O2SAT 99
== END 2025-01-29 12:50 | disposition home or self-care (01) | DRG 641 ==
LOC: ED 21:43 → EDINP 01-28 01:24 → SUATTDRO 01-28 01:24 → 2W 01-28 02:14